=== PATIENT | male | born 1960 | race Caucasian/White ===

== ENCOUNTER 2023-11-26 09:17 | Outpatient (CLI) | payer OTHER, SELFPAY ==
[2023-11-26 10:38] LABS: Basophils Absolute Auto 0.1 K/mm3 (0.0-0.1); Basophils Percent Auto 0.5 % (0.2-1.2); Eosinophils Absolute Auto 0.3 K/mm3 (0-0.3); Eosinophils Percent Auto 2.7 % (0-4.4); Hematocrit 40.7 % (42.0-52.0); Hemoglobin 13.3 g/dL (14.0-18.0); Immature Granulocyte Absolute 0.04 K/mm3 (0.00-0.031); Immature Granulocyte Percent A 0.4 % (0-0.5); Lymphocytes Absolute Auto 3.16 K/mm3 (0.9-3.2); Lymphocytes Percent Auto 33.4 % (18.3-44.2); Mean Corpuscular HGB Conc 32.7 g/dl (32-36); Mean Corpuscular Hemoglobin 30.5 pg (26-34); Mean Corpuscular Volume 93.3 fl (80-100); Mean Platelet Volume 10.5 fl (7.4-10.4); Monocytes Absolute Auto 0.6 K/mm3 (0.1-0.6); Monocytes Percent Auto 6.4 % (2.6-8.5); Neutrophils Absolute Auto 5.4 K/mm3 (1.3-6.7); Neutrophils Percent Auto 56.6 % (45.5-73.1); Platelet Count Result 209 k/mm3 (150-375); Red Blood Count 4.36 M/mm3 (4.6-6.20); Red Cell Distribution Width 12.7 % (11.5-14.5); White Blood Count 9.5 K/mm3 (4.5-10.0)
[2023-11-26 10:43] LABS: Microalbumin Urine Random 35.7 mg/L (0-16.7)
[2023-11-26 10:45] LABS: Alanine Aminotransferase 28 U/L (6-50); Albumin Level 4.4 g/dL (3.5-5.1); Alkaline Phosphatase 39 U/L (38-126); Anion Gap 4 mmol/L (4-12); Aspartate Amino Transferase 35 U/L (17-59); Bilirubin,Total 0.8 mg/dL (0.2-1.3); Blood Urea Nitrogen 13 mg/dL (9-20); Calcium 9.5 mg/dL (8.4-10.2); Carbon Dioxide 31 mmol/L (22-30); Chloride 105 mmol/L (98-107); Cholesterol 174 mg/dL (0-200); Estimated Glomerular Filt Rate > 60; Glucose 101 mg/dL (65-110); HDL Direct 24 mg/dL; Potassium 3.7 mmol/L (3.4-5.0); Sodium 140 mmol/L (137-145); Triglycerides 188 mg/dL (<150)
[2023-11-26 10:57] LABS: LDL Cholesterol Direct 134 mg/dL
[2023-11-26 11:07] LABS: Hemoglobin A1C 7.9 % (<5.7)
[2023-11-26 11:23] LABS: Vitamin D 25 Hydroxy 20.7 ng/mL
[2023-11-26 13:10] LABS: Creatinine Urine 193.8 mg/dL; MALB Creatinine Ratio 18.4 mg/g (0-30)
[2023-11-30 20:25] LABS: Apolipoprotein B 119 mg/dL (<90)
== END 2023-11-26 09:18 | disposition home or self-care (01) ==
LOC: ANHLAB 09:18
PROVIDERS: PCP Clinical Nurse Specialist; Visit Provider Clinical Nurse Specialist
DX: E11.9 Type 2 diabetes mellitus without complications (principal); F41.9 Anxiety disorder, unspecified; Z13.220 Encounter for screening for lipoid disorders; Z13.228 Encounter for screening for other metabolic disorders
CPT/HCPCS: 36415; 80053; 80061; 82043; 82172; 82306; 82607; 83036; 84443; 85025

== ENCOUNTER 2023-12-28 16:11 | Outpatient (CLI) | payer OTHER, SELFPAY ==
[2023-12-28 20:12] LABS: Free T4 Free Thyroxine 0.73 ng/mL (0.78-2.19)
[2023-12-28 20:26] LABS: Prostate Specific Antigen 0.2 ng/mL (< OR = 4.0)
== END 2023-12-28 16:12 | disposition home or self-care (01) ==
LOC: ANHGOSHLAB 16:13
PROVIDERS: PCP Internal Medicine; Visit Provider Clinical Nurse Specialist
DX: Z12.5 Encounter for screening for malignant neoplasm of prostate (principal); R79.89 Other specified abnormal findings of blood chemistry; E11.9 Type 2 diabetes mellitus without complications
CPT/HCPCS: 36415; 84153; 84439; 84443; G0103

== ENCOUNTER 2024-01-03 11:07 | Emergency (ER) | payer OTHER, SELFPAY ==
[2024-01-03] VITALS (14 sets, daily range): BP systolic 72–113; BP diastolic 52–83; PULSE 60–77; RESP 14–20; TEMP 36.4; O2SAT 92–98
--- NOTE | ~2024-01-03 | CT_ITS ---
EXAMINATION: CT brain wo con DATE: 01/03/2024 13:54 INDICATION: Dizziness. TECHNIQUE: Computed tomography (CT) of the head was performed without intravenous contrast. The mA wa s adjusted according to patient size. Iterative reconstruction technique was employed. The dose-lengt h product was 908.00 mGy-cm. COMPARISON: None FINDINGS: There is no intracranial hemorrhage, acute infarction, or abnormal intracranial mass lesion . The ventricles are normal in size. The orbits are normal. There is mild mucosal thickening in the p aranasal sinuses. The mastoid air cells are normal. IMPRESSION: 1. Normal brain. Reviewed, dictated and finalized at location A. IMPRESSION: 1. Normal brain.
--- NOTE | 2024-01-03 11:40 | ECG_ITS ---
SEE SCANNED COPY FOR CONFIRMED REPORT MTDD
[2024-01-03 12:19] LABS: Basophils Percent Auto 0.4 % (0.2-1.2); Eosinophils Absolute Auto 0.6 K/mm3 (0-0.3); Eosinophils Percent Auto 6.8 % (0-4.4); Hematocrit 42.5 % (42.0-52.0); Hemoglobin 13.7 g/dL (14.0-18.0); Immature Granulocyte Absolute 0.02 K/mm3 (0.00-0.031); Immature Granulocyte Percent A 0.2 % (0-0.5); Lymphocytes Absolute Auto 1.97 K/mm3 (0.9-3.2); Lymphocytes Percent Auto 23.6 % (18.3-44.2); Mean Corpuscular HGB Conc 32.2 g/dl (32-36); Mean Platelet Volume 10.4 fl (7.4-10.4); Monocytes Absolute Auto 0.5 K/mm3 (0.1-0.6); Monocytes Percent Auto 6.4 % (2.6-8.5); Neutrophils Absolute Auto 5.2 K/mm3 (1.3-6.7); Neutrophils Percent Auto 62.6 % (45.5-73.1); Platelet Count Result 200 k/mm3 (150-375); Red Blood Count 4.57 M/mm3 (4.6-6.20); Red Cell Distribution Width 12.8 % (11.5-14.5); White Blood Count 8.3 K/mm3 (4.5-10.0)
[2024-01-03] MEDS: SODIUM CHLORIDE 0.9% IV 1,000 ML 999 ML IV CONT ×2 (12:23→13:33)
[2024-01-03] MEDS: MECLIZINE HCL 25 MG TABLET PO (12:24)
[2024-01-03 12:32] LABS: Alanine Aminotransferase 29 U/L (6-50); Albumin Level 4.6 g/dL (3.5-5.1); Alkaline Phosphatase 38 U/L (38-126); Anion Gap 10 mmol/L (4-12); Aspartate Amino Transferase 35 U/L (17-59); Bilirubin,Total 0.9 mg/dL (0.2-1.3); Blood Urea Nitrogen 15 mg/dL (9-20); Calcium 10.2 mg/dL (8.4-10.2); Carbon Dioxide 23 mmol/L (22-30); Chloride 108 mmol/L (98-107); Estimated CRCL calculation 66 ml/min; Estimated Glomerular Filt Rate > 60; Glucose 174 mg/dL (65-110); Potassium 4.4 mmol/L (3.4-5.0); Sodium 141 mmol/L (137-145)
--- NOTE | 2024-01-03 12:46 | ED.GENADULT ---
HPI - General Adult General Chief complaint: Dizziness Stated complaint: dizzy Time Seen by Provider: 01/03/24 12:00 History of Present Illness HPI narrative: Patient is a 63-year-old male who presents ER with dizziness. Spinning in nature. Constant for the last week. Worse with turning his head or looking up and down. Also worse with positional changes. It has caused him to fall once 2 days ago. Denies injury from fall. No loss of consciousness. No chest pain or chest pressure. No racing of the heart. Reports he has had similar symptoms for years but this is been the most persistent. No sinus congestion or sore throat or cough. No tinnitus. Related Data Home Medications Medication Instructions Recorded Confirmed albuterol sulfate 90 mcg/actuation 2 puff inhalation Q4H PRN 12/25/19 11/25/23 aerosol inhaler (Ventolin HFA) atorvastatin 20 mg tablet 20 mg PO DAILY 12/25/19 11/25/23 blood sugar diagnostic (True #10 12/25/19 11/25/23 Metrix Glucose Test Strip) blood-glucose meter (True Metrix #1 12/25/19 11/25/23 Air Glucose Meter kit) blood-glucose meter (Trueresult #1 12/25/19 11/25/23 Blood Glucose System kit) fenofibrate 160 mg tablet 160 mg PO DAILY 12/25/19 11/25/23 insulin U-500 syringe-needle 1/2 #100 12/25/19 11/25/23 mL 31 gauge x 15/64 (BD Insulin Syringe U-500) insulin regular human 100 unit/mL 13 unit subcut TID 12/25/19 injection solution (Humulin R Regular U-100 Insulin) insulin syringe-needle U-100 0.5 #10 12/25/19 11/25/23 mL 31 gauge x 5/16 (BD Insulin Syringe Ultra-Fine) lancets 26 gauge (TRUEplus Lancets) #100 12/25/19 11/25/23 pen needle, diabetic 31 gauge x #1,200 12/25/19 11/25/23 5/16 (BD Ultra-Fine Short Pen Needle) propranolol 20 mg tablet 20 mg PO Q12H 12/25/19 11/25/23 sertraline 100 mg tablet 100 mg PO DAILY 12/25/19 11/25/23 aspirin 81 mg tablet,delayed 81 mg PO DAILY 11/25/23 11/25/23 release (Adult Low Dose Aspirin) gabapentin 100 mg capsule 200 mg PO TID 11/25/23 11/25/23 primidone 50 mg tablet 50 mg PO BID 11/25/23 11/25/23 Allergies Allergy/AdvReac Type Severity Reaction Status Date / Time amoxicillin Allergy Unknown throat Verified 11/25/23 13:04 swelling Penicillins Allergy Unknown throat Verified 11/25/23 13:04 swelling Review of Systems Review of Systems: All systems reviewed & are unremarkable except as noted in HPI and below Constitutional: Constitutional: Reports no additional constitutional complaints ENT: Reports dizziness, Denies nasal congestion and Denies sore throat Cardiovascular: Cardiovascular: Reports no additional cardiovascular complaints Respiratory: Respiratory: Reports no additional respiratory complaints Gastrointestinal: Gastrointestinal: Reports no additional gastrointestinal complaints Neurologic: Reports system reviewed and no additional complaints, except as documented [facility] Past Medical History Medical History (Updated 01/03/24 @ 16:04 by Wale Moe MD) Anxiety Benign positional vertigo COPD (chronic obstructive pulmonary disease) Diabetes Memory loss Family History Family History (Updated 11/25/23 @ 13:14 by Tiana Lindsey MA) Father Family history of diabetes mellitus in first degree relative Alcoholism in family member Mother Diabetes mellitus Grandparent Diabetes mellitus Alcoholism in family member Social History Social History (Updated 11/25/23 @ 13:17 by Tiana Lindsey MA) Social History: Caffeine Cola 4 bottles a day Smoking status: Never smoker Second hand tobacco smoke exposure: Yes Alcohol intake: never Substance use: current Substance use type: marijuana Do You Feel Safe in your Home?: Yes Living arrangements: with family Occupation/Education: retired Gender identity (if verbalized by the patient): Male Sexual Orientation (if Verbalized by the Patient): Straight or Heterosexual Exam Na
[2024-01-03] MEDS: diazePAM INJ (*CRX) 10 MG/2 ML SYRINGE 5 MG IV PUSH (13:33)
--- NOTE | 2024-01-03 13:55 | PC.NURSE ---
Pt returned to room 22 at this time
== END 2024-01-03 16:14 | disposition home or self-care (01) ==
PROVIDERS: General Practice; Emergency Provider Emergency Medicine; PCP Internal Medicine
DX: I95.1 Orthostatic hypotension (principal); H81.10 Benign paroxysmal vertigo, unspecified ear; J44.9 Chronic obstructive pulmonary disease, unspecified; E11.9 Type 2 diabetes mellitus without complications; F41.9 Anxiety disorder, unspecified; Z79.899 Other long term (current) drug therapy; Z79.82 Long term (current) use of aspirin; Z79.4 Long term (current) use of insulin; Z79.84 Long term (current) use of oral hypoglycemic drugs
CPT/HCPCS: 36415; 70450; 80053; 85025; 93005; 96361; 96374; 99284; A9270; J3360; J7030

== ENCOUNTER 2024-01-11 14:53 | Outpatient (CLI) | payer OTHER, SELFPAY ==
--- NOTE | ~2024-01-11 | MR_ITS ---
EXAMINATION: MR brain/brain stem wo con DATE: 01/11/2024 15:48 INDICATION: Dizziness and giddiness. TECHNIQUE: Magnetic resonance imaging (MRI) of the brain and brainstem was performed without intraven ous contrast. COMPARISON: Head CT 01/03/2024 FINDINGS: There is no intracranial hemorrhage, acute infarction, or abnormal intracranial mass lesion . The ventricles are normal in size. There are scattered areas of nonspecific increased T2-weighted s ignal intensity in the cerebral white matter, which is within normal limits for the patient's age. Th e ventricles are normal in size. There is mild mucosal thickening in the paranasal sinuses. The orbit s are normal. The mastoid air cells are normal. IMPRESSION: 1. Normal aging brain. Reviewed, dictated and finalized at location A. IMPRESSION: 1. Normal aging brain.
== END 2024-01-11 14:54 | disposition home or self-care (01) ==
LOC: ANHIMG 14:56
PROVIDERS: PCP Internal Medicine; Visit Provider Internal Medicine
DX: R41.3 Other amnesia (principal); R42 Dizziness and giddiness
CPT/HCPCS: 70551

== ENCOUNTER 2024-01-14 15:15 | Outpatient (RCR) | payer OTHER, SELFPAY ==
--- NOTE | 2024-01-14 16:22 | OPREHPOC ---
Outpatient Therapy Plan of Care This is a Multidisciplinary Plan of Care that may contain components documented by all disciplines (PT, OT, and ST.) PT Problem 1 PT Problem #1 Knowledge Deficit PT Goal 1 Goal Hooker with HEP PT Problem 2 PT Problem #2 Impaired Balance PT Goal 1 Goal Patient will demonstrate ability to maintain straight path with ambulation without lateral deviation Target Visit 8 PT Goal 2 Goal Patient will demonstrate ability to maintain balance on uneven surface with head motion and no LOB for 30s Target Visit 8 PT Problem 3 PT Problem #3 Impaired Balance PT Goal 1 Goal Patient will demonstrate ability to maintain stance on uneven surface with eyes closed for 30s and no LOB for improved vestibular stability Target Visit 8 PT Goal 2 Goal Patient will demonstrate no LOB with floor retrieval Target Visit 8
--- NOTE | 2024-01-14 16:22 | PTOPEVAL1 ---
Assessment and note entered by Soy Estrada, PT Evaluation Information Assessment Status Evaluation Diagnosis Dizziness Onset December 2022 Subjective Information Reports that he has had dizziness for a long, long time. Reports that he has had issues since he was about a teenager. More recently it became a lot worse starting about a year ago. He denies any known trauma throughout his life which may have caused this. He is currently lined up to have an MRI to assess for any possible physical issues. The MRI came back normal according to patient report. He cannot do anything that involves spinning around or he loses balance and gets off centered. Reports that he does occasionally get an earache that can go from ear to ear. Reports that he has been lightheaded in the past as well and passed out. That was about a year ago. Reported Pain Level Pain Score 0: Self Report Assessment PT Clinical Summary Patient was negative for BPPV this session. He demonstrated no current issues with supine motion but subjective reports indicate chronic vestibular deficits. He will benefit from skilled therapy to challenge vestibular reaction to improve balance, head motion, and locomotion for improved safety and stability with ADLs. Plan of Care Interventions Gait Training,Neuro Re-education,Therapeutic Activities,Therapeutic Exercise PT Services Indicated Yes Treatment Frequency and 2x/week for 8 visits Duration These treatments will address the objective and functional deficits as defined above. The patient will be advanced safely and appropriately in order for the patient to progress towards his/her prior level of function. Additional exercises will be introduced and as well as a comprehensive home exercise program upon discharge, if needed, ?to ensure carryover of functional gains achieved in the clinic. This treatment plan has been reviewed and agreement upon by the patient.
--- NOTE | 2024-01-20 11:20 | PCPTNOTE ---
Pt. no show no call.
--- NOTE | 2024-01-27 16:47 | PCPTNOTE ---
Patiient no showed to appointment. Call and left voicemail.
--- NOTE | 2024-01-28 15:47 | PCPTNOTE ---
Patient no showed to appointment this date. Patient will be discharged due to no show policy.
--- NOTE | 2024-02-08 07:42 | PTOPDC ---
Assessment and note entered by Soy Estrada, PT Evaluation Information Assessment Status Discharge - Pt Not Presen Diagnosis Dizziness Onset December 2022 Subjective Information Reports that he has had dizziness for a long, long time. Reports that he has had issues since he was about a teenager. More recently it became a lot worse starting about a year ago. He denies any known trauma throughout his life which may have caused this. He is currently lined up to have an MRI to assess for any possible physical issues. The MRI came back normal according to patient report. He cannot do anything that involves spinning around or he loses balance and gets off centered. Reports that he does occasionally get an earache that can go from ear to ear. Reports that he has been lightheaded in the past as well and passed out. That was about a year ago. Assessment PT Clinical Summary Patient has No Showed, No Called clinic for 3 consecutive visits. Will be discharged at this time to [facility]. Please refer to evaluation for discharge status. Plan of Care PT Services Indicated D/C to [facility]
== END 2024-02-08 09:41 | disposition home or self-care (01) ==
LOC: ANHGOSHPT 15:15
PROVIDERS: PCP Internal Medicine; Visit Provider Internal Medicine
DX: R42 Dizziness and giddiness (principal)
CPT/HCPCS: 97112; 97161

== ENCOUNTER 2024-01-25 14:00 | Outpatient (CLI) | payer OTHER, SELFPAY ==
--- NOTE | 2024-01-31 14:54 | WPDHOLTEREM ---
Holter/Event Monitor Holter/Event Monitor Date of procedure: 01/25/24 Holter/Event Procedure: 48 Hr Holter Monitor Indications: Syncope Conclusion: 1. 48 hour holter monitor on 01/25/24. 2. Underlying rhythm is sinus rhythm. HR range 54-102 bpm; average HR 70 bpm. 3. There are 13 premature supraventricular complexes and 1 supraventricular couplet. No supraventricular tachycardia. 4. No premature ventricular complexes. No ventricular tachycardia. 5. No sinoatrial or atrioventricular blocks. No significant pauses greater than 2 seconds. 6. Patient reports symptoms of dizziness which demonstrate sinus rhythm, HR range 61-76 bpm.
== END 2024-01-25 14:01 | disposition home or self-care (01) ==
LOC: ANHCARD 14:00
PROVIDERS: PCP Internal Medicine; Visit Provider Internal Medicine
DX: R55 Syncope and collapse (principal)
CPT/HCPCS: 93225; 93226

== ENCOUNTER 2024-03-14 14:47 | Outpatient (CLI) | payer OTHER, SELFPAY ==
[2024-03-14 16:23] LABS: Anion Gap 8 mmol/L (4-12); Blood Urea Nitrogen 15 mg/dL (9-20); Calcium 9.3 mg/dL (8.4-10.2); Carbon Dioxide 30 mmol/L (22-30); Chloride 103 mmol/L (98-107); Estimated Glomerular Filt Rate > 60; Glucose 76 mg/dL (65-110); Potassium 4.2 mmol/L (3.4-5.0); Sodium 141 mmol/L (137-145)
[2024-03-14 19:13] LABS: Free T4 Free Thyroxine 0.86 ng/mL (0.78-2.19)
== END 2024-03-14 14:48 | disposition home or self-care (01) ==
LOC: ANHGOSHLAB 14:49
PROVIDERS: PCP Clinical Nurse Specialist; Visit Provider Internal Medicine
DX: E11.65 Type 2 diabetes mellitus with hyperglycemia (principal); R79.89 Other specified abnormal findings of blood chemistry; Z79.4 Long term (current) use of insulin
CPT/HCPCS: 36415; 80048; 83036; 84439; 84443

== ENCOUNTER 2024-04-04 14:56 | Emergency (ER) | payer OTHER, SELFPAY ==
--- NOTE | ~2024-04-04 | XR_ITS ---
EXAM: XR knee RT min 4V DATE: 04/04/2024 16:16 HISTORY: fall last week medial knee pain . COMPARISON: None available. FINDINGS: Decreased mineralization. No fracture or dislocation. No lytic or blastic lesion. Mild med ial joint space narrowing. Mild tricompartmental osteophytosis. Chondrocalcinosis. Small volume joint fluid. No erosion or periosteal change. Soft tissues within normal limits. IMPRESSION: Osteopenia. Mild tricompartmental arthritis with chondrocalcinosis. Small right knee join t effusion. Reviewed, dictated and finalized at location K. IMPRESSION: Osteopenia. Mild tricompartmental arthritis with chondrocalcinosis. Small right knee joint effusion.
[2024-04-04 15:04] VITALS: BP 114/66; PULSE 70; RESP 16; TEMP 36.4; O2SAT 98
--- NOTE | 2024-04-04 15:42 | ED.BACK ---
HPI - Back Pain/Injury General Chief Complaint: Back Pain/Injury Stated Complaint: Knee/Hip/Lower Back Pain Time Seen by Provider: 04/04/24 15:42 Source: patient, RN notes reviewed and old records reviewed Mode of arrival: ambulatory Limitations: no limitations History of Present Illness HPI Narrative: 64-year-old [facility] to [facility] for complaint of right knee, right hip and lower right back pain. Patient states that he had surgery on his right knee approximately 20 years ago. Patient states that over the past 6 months he has been experiencing increasing pain and weakness with right knee. Patient states that knee has been giving out on him occasionally, causing him to fall; most recent 1 week ago. Patient denies hitting head during falls. Patient reports that right hip and back pain have been ongoing for approximately 6 months as well. Patient states that he has seen his primary care provider recently but not for these issues. Patient states he called his primary care provider today requesting an orthopedic referral. Patient states he was advised by his primary care to be seen in [facility] for [facility]opedic referral. Patient denies any known injury to right knee, right hip or back. Patient has attempted to treat at home with a right knee brace. Pvyw-oss-[id number] medications, arthritis cream and massage. Patient sitting in exam room comfortably. Patient in no acute distress. Related Data Home Medications Medication Instructions Recorded Confirmed albuterol sulfate 90 mcg/actuation 2 puff inhalation Q4H PRN 12/25/19 02/07/24 aerosol inhaler (Ventolin HFA) atorvastatin 20 mg tablet 20 mg PO DAILY 12/25/19 02/07/24 blood sugar diagnostic (True #10 ea 12/25/19 02/07/24 Metrix Glucose Test Strip) blood-glucose meter (True Metrix #1 ea 12/25/19 02/07/24 Air Glucose Meter kit) blood-glucose meter (Trueresult #1 ea 12/25/19 02/07/24 Blood Glucose System kit) insulin U-500 syringe-needle 1/2 #100 ea 12/25/19 02/07/24 mL 31 gauge x 15/64 (BD Insulin Syringe U-500) insulin syringe-needle U-100 0.5 #10 ea 12/25/19 02/07/24 mL 31 gauge x 5/16 (BD Insulin Syringe Ultra-Fine) lancets 26 gauge (TRUEplus Lancets) #100 ea 12/25/19 02/07/24 pen needle, diabetic 31 gauge x #1,200 ea 12/25/19 02/07/2401/05 (BD Ultra-Fine Short Pen Needle) propranolol 20 mg tablet 20 mg PO Q12H 12/25/19 02/07/24 sertraline 100 mg tablet 100 mg PO DAILY 12/25/19 02/07/24 aspirin 81 mg tablet,delayed 81 mg PO DAILY 11/25/23 02/07/24 release (Adult Low Dose Aspirin) gabapentin 100 mg capsule 200 mg PO TID 11/25/23 02/07/24 primidone 50 mg tablet 50 mg PO BID 11/25/23 02/07/24 insulin regular human 100 unit/mL 20 unit subcut BID 01/04/24 02/07/24 injection solution (Humulin R Regular U-100 Insulin) Allergies Allergy/AdvReac Type Severity Reaction Status Date / Time amoxicillin Allergy Unknown throat Verified 01/04/24 13:45 swelling Penicillins Allergy Unknown throat Verified 01/04/24 13:45 swelling Review of Systems Review of Systems: All systems reviewed & are unremarkable except as noted in HPI and below Constitutional: Constitutional: Reports no additional constitutional complaints Eyes: Eyes: Reports no additional eye complaints ENT: Reports system reviewed and no additional complaints, except as documented Cardiovascular: Cardiovascular: Reports no additional cardiovascular complaints, Denies chest pain and Denies dyspnea Respiratory: Respiratory: Reports no additional respiratory complaints, Denies cough and Denies dyspnea Musculoskeletal: Musculoskeletal: Reports as per HPI, Reports back pain, Denies deformity, Reports arthralgias, Denies numbness, Denies radiating pain into limb and Denies tingling Comments: patient complaint of chronic right knee pain, right hip pain, right lower back pain Neurologic: Reports system reviewed and no additional complaints, except as documented Psychiatri
== END 2024-04-04 16:44 | disposition home or self-care (01) ==
PROVIDERS: Emergency Provider Nurse Practitioner Family; PCP Internal Medicine
DX: M25.561 Pain in right knee (principal); M25.551 Pain in right hip; M54.50 Low back pain, unspecified; J44.9 Chronic obstructive pulmonary disease, unspecified; E11.9 Type 2 diabetes mellitus without complications; F41.9 Anxiety disorder, unspecified; F33.9 Major depressive disorder, recurrent, unspecified; Z79.82 Long term (current) use of aspirin
CPT/HCPCS: 73564; 99213; G0463

== ENCOUNTER 2024-05-12 15:22 | Emergency (ER) | payer OTHER, SELFPAY ==
--- NOTE | ~2024-05-12 | XR_ITS ---
XR foot LT min 3V Ordering provider: Girma Suarez MD History: . recent fx, persistent pain . Comparison: None. FINDINGS: BONES: Fracture of the distal metaphysis of the abdomen. Metatarsals bones. No other definite fractur es seen. JOINT SPACES: Normal. No tarsal coalition. SOFT TISSUES: Soft tissue swelling over the dorsum of the foot. Calcaneal spur. IMPRESSION: Fracture distal metaphysis of the third and fourth metatarsal bones. Reviewed, dictated and finalized at location A.
[2024-05-12 15:40] VITALS: BP 105/72; PULSE 71; RESP 16; TEMP 36.2; O2SAT 98
--- NOTE | 2024-05-12 18:26 | ED.LOWEXIN ---
HPI - Extremity Injury (Lower) General Chief Complaint: Extremity Injury, Lower Stated Complaint: foot pain Time Seen by Provider: 05/12/24 17:33 History of Present Illness HPI Narrative: 64-year-old male presented for continued pain in his left foot. Patient states he had a ground level mechanical fall last week and has a confirm fracture his left foot. He was given a postoperative shoe and told to follow up outpatient. He has an appointment with Orthopedics on of this upcoming week. He was not sent home with any pain medications according to himself and stated that he has been having significant pain and swelling in his foot. Endorses full range of motion and no neuropathy. Pain and swelling localized to the dorsum of the left foot. No new injuries or traumas. He has been wearing his postop shoe appropriately. No other concerns and no other symptoms at this time. Related Data Home Medications Medication Instructions Recorded Confirmed albuterol sulfate 90 mcg/actuation 2 puff inhalation Q4H PRN 12/25/19 02/07/24 aerosol inhaler (Ventolin HFA) atorvastatin 20 mg tablet 20 mg PO DAILY 12/25/19 02/07/24 blood sugar diagnostic (True #10 12/25/19 02/07/24 Metrix Glucose Test Strip) blood-glucose meter (True Metrix #1 12/25/19 02/07/24 Air Glucose Meter kit) blood-glucose meter (Trueresult #1 12/25/19 02/07/24 Blood Glucose System kit) insulin U-500 syringe-needle 1/2 #100 12/25/19 02/07/24 mL 31 gauge x 15/64 (BD Insulin Syringe U-500) insulin syringe-needle U-100 0.5 #10 12/25/19 02/07/24 mL 31 gauge x 5/16 (BD Insulin Syringe Ultra-Fine) lancets 26 gauge (TRUEplus Lancets) #100 12/25/19 02/07/24 pen needle, diabetic 31 gauge x #1,200 12/25/19 02/07/24 5/16 (BD Ultra-Fine Short Pen Needle) propranolol 20 mg tablet 20 mg PO Q12H 12/25/19 02/07/24 sertraline 100 mg tablet 100 mg PO DAILY 12/25/19 02/07/24 aspirin 81 mg tablet,delayed 81 mg PO DAILY 11/25/23 02/07/24 release (Adult Low Dose Aspirin) primidone 50 mg tablet 50 mg PO BID 11/25/23 02/07/24 insulin regular human 100 unit/mL 20 unit subcut BID 01/04/24 02/07/24 injection solution (Humulin R Regular U-100 Insulin) Allergies Allergy/AdvReac Type Severity Reaction Status Date / Time amoxicillin Allergy Unknown throat Verified 05/12/24 15:24 swelling Penicillins Allergy Unknown throat Verified 05/12/24 15:24 swelling Review of Systems Review of Systems: All systems reviewed & are unremarkable except as noted in HPI and below PMFSH Past Medical History Medical History Anxiety Benign positional vertigo COPD (chronic obstructive pulmonary disease) Diabetes Major depressive disorder, recurrent episode Memory loss Type 2 diabetes mellitus with hyperglycemia, with long-term current use of insulin Family History Family History Father Family history of diabetes mellitus in first degree relative Alcoholism in family member Mother Diabetes mellitus Grandparent Diabetes mellitus Alcoholism in family member Social History Social History Social History: Caffeine Cola 4 bottles a day Smoking status: Never smoker Second hand tobacco smoke exposure: Yes Alcohol intake: never Substance use: current Substance use type: marijuana Do You Feel Safe in your Home?: Yes Lack of Transportation: No Lack of Food: Never True Current Housing: I Have Housing Concerned About Future Housing: No Difficulty Paying Gas/Electric Bills: YES Difficulty Paying for Meds: No Currently Unemployed: No Education: High School Diploma/GED Difficulty w/ Childcare or Family Care: No Living arrangements: with family Occupation/Education: retired Gender identity (if verbalized by the patient): Male
== END 2024-05-12 19:17 | disposition home or self-care (01) ==
LOC: ANHED 18:45
PROVIDERS: Emergency Provider Student in an Organized Health Care Education/Training Program; PCP Internal Medicine
DX: S92.332A Displaced fracture of third metatarsal bone, left foot, initial encounter for closed fracture (principal); S92.342A Displaced fracture of fourth metatarsal bone, left foot, initial encounter for closed fracture; W18.30XA Fall on same level, unspecified, initial encounter; J44.9 Chronic obstructive pulmonary disease, unspecified; E11.9 Type 2 diabetes mellitus without complications; Z79.4 Long term (current) use of insulin; F41.8 Other specified anxiety disorders
CPT/HCPCS: 73630; 99283

== ENCOUNTER 2024-06-02 11:04 | Emergency (ER) | payer OTHER, SELFPAY ==
[2024-06-02] VITALS (7 sets, daily range): BP systolic 110–132; BP diastolic 64–74; PULSE 97–106; RESP 23–37; TEMP 37.3; O2SAT 97–99
--- NOTE | ~2024-06-02 | CT_ITS ---
History: Altered mental status PROCEDURE: CT head without contrast. COMPARISON: 01/03/2024 TECHNIQUE: Axial imaging of the head performed from the skull base to the vertex without IV contrast. Sagittal a nd coronal reformations obtained. FINDINGS: The ventricles are normal in size, shape and position. There is no mass, mass effect or midline shift. There is no abnormal extra-axial fluid collection or intracranial hemorrhage. Visualized paranasal sinuses are clear. The mastoid air cells are well aerated. There are no skull fractures. Impression: No acute intracranial hemorrhage or suspicious mass effect. Reviewed, dictated and finalized at location A. Impression: No acute intracranial hemorrhage or suspicious mass effect.
--- NOTE | ~2024-06-02 | XR_ITS ---
EXAMINATION: XR chest 1V portable DATE: 06/02/2024 14:48 INDICATION: Altered mental status. Weakness. TECHNIQUE: A single frontal view of the chest was obtained. COMPARISON: Chest 2 view 10/22/2017 FINDINGS: There is no pneumonia, pleural effusion, or pneumothorax. The heart size is normal. Calcifi ed left hilar and mediastinal lymph nodes are consistent with old granulomatous disease. IMPRESSION: 1. No acute cardiopulmonary disease. Reviewed, dictated and finalized at location A.
--- NOTE | 2024-06-02 11:18 | ECG_ITS ---
Test Date: 2024-06-02 11:45:41 Measurements Intervals [place] Rate: 100 P: 54 AL: 165 QRS: -15 QRSD: 86 T: 55 QT: 342 QTc: 441 Interpretive Statements SINUS TACHYCARDIA LEFT AXIS DEVIATION BORDERLINE ECG No previous ECG available for comparison Electronically Signed On 06-02-2024 12:38:35 CDT by Noel Mckeon M.D.
[2024-06-02 11:46] LABS: Basophils Percent Auto 0.2 % (0.2-1.2); Eosinophils Percent Auto 0.1 % (0-4.4); Hematocrit 45.7 % (42.0-52.0); Hemoglobin 15.3 g/dL (14.0-18.0); Immature Granulocyte Absolute 0.06 K/mm3 (0.00-0.031); Immature Granulocyte Percent A 0.4 % (0-0.5); Lymphocytes Absolute Auto 0.78 K/mm3 (0.9-3.2); Lymphocytes Percent Auto 4.6 % (18.3-44.2); Mean Corpuscular HGB Conc 33.5 g/dl (32-36); Mean Corpuscular Hemoglobin 31.2 pg (26-34); Mean Corpuscular Volume 93.1 fl (80-100); Mean Platelet Volume 10.1 fl (7.4-10.4); Monocytes Absolute Auto 0.9 K/mm3 (0.1-0.6); Monocytes Percent Auto 5.2 % (2.6-8.5); Neutrophils Absolute Auto 15.4 K/mm3 (1.3-6.7); Neutrophils Percent Auto 89.5 % (45.5-73.1); Platelet Count Result 247 k/mm3 (150-375); Red Blood Count 4.91 M/mm3 (4.6-6.20); Red Cell Distribution Width 13.2 % (11.5-14.5); White Blood Count 17.1 K/mm3 (4.5-10.0)
[2024-06-02 11:54] LABS: Glucose Point of Care 88 mg/dl (65-105)
[2024-06-02 11:57] LABS: Ethanol < 10 mg/dL (<10)
[2024-06-02 11:59] LABS: Alanine Aminotransferase 30 U/L (6-50); Albumin Level 4.7 g/dL (3.5-5.1); Alkaline Phosphatase 45 U/L (38-126); Anion Gap 13 mmol/L (4-12); Aspartate Amino Transferase 52 U/L (17-59); Bilirubin,Total 1.1 mg/dL (0.2-1.3); Blood Urea Nitrogen 21 mg/dL (9-20); Calcium 9.5 mg/dL (8.4-10.2); Carbon Dioxide 25 mmol/L (22-30); Chloride 102 mmol/L (98-107); Estimated CRCL calculation 60 ml/min; Estimated Glomerular Filt Rate > 60; Glucose 96 mg/dL (65-110); Potassium 4.4 mmol/L (3.4-5.0); Sodium 140 mmol/L (137-145)
--- NOTE | 2024-06-02 12:28 | ED.AMS ---
HPI - Altered Mental Status General Chief Complaint: Altered Mental Status Stated Complaint: weakness Time Seen by Provider: 06/02/24 11:14 History of Present Illness HPI narrative: Patient has history of Parkinson's and over the last few weeks to months, ex- who helps take care of him has found that he has had episodes of confusion and some hallucinations, that last for about a few min to an hour. Seems to be happening more frequently. Patient denies any new symptoms or complaints, he does state he just started taking primidone prescribed by his doctor to help with his tremors. No fevers or chills. Related Data Home Medications Medication Instructions Recorded Confirmed blood sugar diagnostic (True #10 ea 12/25/19 06/01/24 Metrix Glucose Test Strip) blood-glucose meter (True Metrix #1 ea 12/25/19 06/01/24 Air Glucose Meter kit) blood-glucose meter (Trueresult #1 ea 12/25/19 06/01/24 Blood Glucose System kit) insulin U-500 syringe-needle 1/2 #100 12/25/19 06/01/24 mL 31 gauge x 15/64 (BD Insulin Syringe U-500) insulin syringe-needle U-100 0.5 #10 ea 12/25/19 06/01/24 mL 31 gauge x 5/16 (BD Insulin Syringe Ultra-Fine) lancets 26 gauge (TRUEplus Lancets) #100 12/25/19 06/01/24 pen needle, diabetic 31 gauge x #1,200 12/25/19 06/01/24 5/16 (BD Ultra-Fine Short Pen Needle) propranolol 20 mg tablet 20 mg PO Q12H 12/25/19 06/02/24 sertraline 100 mg tablet 100 mg PO DAILY 12/25/19 06/02/24 primidone 50 mg tablet 100 mg PO BID 06/01/24 06/02/24 Allergies Allergy/AdvReac Type Severity Reaction Status Date / Time amoxicillin Allergy Unknown throat Verified 06/02/24 11:13 swelling Penicillins Allergy Unknown throat Verified 06/02/24 11:13 swelling Review of Systems Review of Systems: All systems reviewed & are unremarkable except as noted in HPI and below PMFSH Past Medical History Medical History Anxiety Benign positional vertigo COPD (chronic obstructive pulmonary disease) Diabetes Left carpal tunnel syndrome Major depressive disorder, recurrent episode Memory loss Type 2 diabetes mellitus with hyperglycemia, with long-term current use of insulin Surgical History Surgical History History of hernia repair History of right knee surgery History of surgery on right wrist Family History Family History Father Family history of diabetes mellitus in first degree relative Alcoholism in family member Mother Diabetes mellitus Grandparent Diabetes mellitus Alcoholism in family member Social History Social History Social History: Caffeine Cola 4 bottles a day Smoking status: Never smoker Second hand tobacco smoke exposure: Yes Alcohol intake: never Substance use: current Substance use type: marijuana Do You Feel Safe in your Home?: Yes Lack of Transportation: No Lack of Food: Never True Current Housing: I Have Housing Concerned About Future Housing: No Difficulty Paying Gas/Electric Bills: YES Difficulty Paying for Meds: No Currently Unemployed: No Education: High School Diploma/GED Difficulty w/ Childcare or Family Care: No Living arrangements: with family Occupation/Education: retired Gender identity (if verbalized by the patient): Male Sexual Orientation (if Verbalized by the Patient): Straight or Heterosexual Exam Narrative: EXAMINATION OF ORGAN SYSTEMS/BODY AREAS: Constitutional: Vital signs per nursing GENERAL:[No acute distress, non-toxic appearing.] HEAD: Normal with no signs of head trauma. EYES: EOMI, conjunctiva normal ENT: Hearing grossly intact LUNGS: Nonlabored breathing. HEART: [Regular rate and rhythm] ABD: [Soft], [nontender to palpation] EXT: Normal range of motion SKIN:
[2024-06-02 13:43] LABS: Add Urine Microscopic? YES; Appearance Urine Clear (Clear); Bacteria Urine None Seen /hpf; Bilirubin Urine Negative (Negative); Blood Urine 2+ (Negative); Color Urine Yellow (Yellow); Glucose Urine UA Negative (Negative); Ketones Urine Trace mg/dL (Negative); Leukocyte Esterase Ur 1+ LEU/UL (Negative); Nitrate Urine Negative (Negative); Protein Urine Trace mg/dL (Negative); RBC Urine 0-2 /hpf (0-2); Specific Grav Ur 1.023 (1.001-1.035); Squamous Epithelial Cell Urine Occasional /hpf (Few)
[2024-06-02] MEDS: NITROFURANTOIN MONOHYD MACROCR 100 MG CAP PO (15:22)
== END 2024-06-02 15:26 | disposition home or self-care (01) ==
PROVIDERS: Emergency Provider Emergency Medicine; PCP Internal Medicine
DX: R41.82 Altered mental status, unspecified (principal); N39.0 Urinary tract infection, site not specified; E11.9 Type 2 diabetes mellitus without complications; F41.8 Other specified anxiety disorders
CPT/HCPCS: 36415; 70450; 71045; 80053; 81001; 82077; 82948; 84443; 85025; 87086; 93005; 99284; A9270

== ENCOUNTER 2024-06-04 12:29 | Observation (INO) | payer OTHER, SELFPAY ==
[2024-06-04] VITALS (10 sets, daily range): BP systolic 102–132; BP diastolic 58–74; PULSE 89–114; RESP 16–20; TEMP 36.4–37.4; O2SAT 91–97; BMI 27.4
--- NOTE | ~2024-06-04 | MR_ITS ---
Procedure: MR lumbar spine wo/w con Ordering provider: Nohemi Escamilla DO History:64 years Male with . low back pain, CT suggests L2 fracture . Comparison: None. Technique: MRI lumbar spine with and without contrast. FINDINGS: CONUS MEDULLARIS: Normal in position and appearance with no abnormal enhancement. The conus ends at t he level of T12-L1. LUMBAR VERTEBRAL BODIES: Loss of height is seen in L2 with no edema seen on the fat suppression image s suggestive of chronic compression. Bright signal on the fat suppression images seen in L1 anteriorl y most likely degenerative. Otherwise, Normal height and alignment. Normal marrow signal. No abnormal marrow enhancement. DISK SPACES: Narrowing of the disc L4-L5. T12-L1: No stenosis. L1-L2: No stenosis. Diffuse disc bulge. Bilateral facet joint disease. Slight narrowing of the mildred mel with no definite root compression L2-L3: No stenosis. Mild diffuse disc bulge. L3-L4: Mild spinal canal stenosis secondary to broad based disc bulge, facet arthropathy, and ligamen morgan flavum hypertrophy. . L4-L5: Severe spinal canal stenosis secondary to broad based disc bulge, facet arthropathy, and liga mentum flavum hypertrophy. Bilateral facet joint disease. Bilateral narrowing of the foramina with ne rve root compression on the right L5-S1: Mild to moderate spinal canal stenosis secondary to broad based disc bulge, facet arthropathy , and ligamentum flavum hypertrophy. PARASPINOUS SOFT TISSUES: Normal. No abnormal paraspinous enhancement. IMPRESSION: 1. No acute osseous abnormality. 2. Chronic compression fracture of L2. 3. Multilevel spinal canal stenosis, intervertebral foraminal narrowing and with compression. 4. No abnormal enhancement. Reviewed, dictated and finalized at location A. IMPRESSION: 1. No acute osseous abnormality. 2. Chronic compression fracture of L2. 3. Multilevel spinal canal stenosis, intervertebral foraminal narrowing and wi th compression. 4. No abnormal enhancement.
--- NOTE | ~2024-06-04 | CT_ITS ---
CT abdomen pelvis w con Ordering provider: Phuong Yoder APRN History: 64 years Male with . leukocytosis, nausea . Comparison: May 22, 2017 Technique: CT abdomen and pelvis with IV and without oral contrast. Automated exposure control and it erative reconstruction technique were employed. The dose-length product was 545.92 mGy-cm. 100 mL Omn ipaque 350 was given IV. Findings: VISUALIZED LOWER CHEST: Tiny nodule in the medial aspect of the right lung base measuring 3.9 mm. 6-1 2 months follow-up is advised. Dependent atelectatic changes are seen bilaterally. UPPER ABDOMINAL ORGANS: Liver: Normal. Very tiny cyst seen in the right lobe of the liver Gallbladder: Normal. Spleen: Normal. Benign calcifications. Stomach/duodenum: Slightly thickened wall in the pyloric area. Pancreas: Normal. Adrenals: Normal. Kidneys: Stone in the right kidney lower pole measuring 6 mm. PELVIC ORGANS: The bladder is underfilled with thickened wall.. BOWEL AND MESENTERY: Colon: Mild sigmoid diverticulosis without diverticulitis. Slightly thickened wall of the wall in the sigmoid colon is seen. Follow-up advised. Normal appendix. Small Bowel: Normal. No obstruction. Peritoneum/mesentery: No free air or free fluid. No mesenteric lymphadenopathy. RETROPERITONEUM: Mild atheromatous disease of the abdominal aorta. No retroperitoneal lymphadenopat hy. MUSCULOSKELETAL: Superficial soft tissues: Fat stranding seen in the anterior abdominal wall in the area of the pelvis may be traumatic or inflammatory or post injection. The superficial soft tissues are normal. Bones: Age appropriate degenerative changes of the spine. compression fracture of L2 is seen which ma y be acute or chronic. IMPRESSION: 1. Right kidney stone. 2. Tiny cysts in the liver. 3. Slightly thickened wall in the sigmoid colon. Follow-up advised. 4. Fat stranding in the anterior abdominal wall most likely postinjection. Clinical correlation advi sed. 5. Compression fracture of L2 which may be acute or chronic. MRI evaluation advised. Reviewed, dictated and finalized at location A. IMPRESSION: 1. Right kidney stone. 2. Tiny cysts in the liver. 3. Slightly thickened wall in the sigmoid colon. Follow-up advised. 4. Fat stranding in the anterior abdominal wall most likely postinjection. Cli nical correlation advised. 5. Compression fracture of L2 which may be acute or chronic. MRI evaluation ad vised.
--- NOTE | ~2024-06-04 | CT_ITS ---
EXAMINATION: CT brain wo con DATE: 06/05/2024 17:22 INDICATION: Confusion. TECHNIQUE: Computed tomography (CT) of the head was performed without intravenous contrast. The mA wa s adjusted according to patient size. Iterative reconstruction technique was employed. The dose-lengt h product was 605.33 mGy-cm. COMPARISON: Head CT 06/02/2024 FINDINGS: There is no intracranial hemorrhage, acute infarction, or abnormal intracranial mass lesion . The ventricles are normal in size. The orbits are normal. There is mild mucosal thickening in the p aranasal sinuses. The mastoid air cells are normal. IMPRESSION: 1. Normal brain. Reviewed, dictated and finalized at location A. IMPRESSION: 1. Normal brain.
--- NOTE | ~2024-06-04 | XR_ITS ---
EXAMINATION: XR chest 2V DATE: 06/04/2024 13:51 INDICATION: Dizziness. Illness. TECHNIQUE: Frontal and lateral views of the chest were obtained. COMPARISON: Chest single view 06/02/2024 FINDINGS: There is no pneumonia, pleural effusion, or pneumothorax. The heart size is normal. Calcifi ed left hilar lymph nodes are consistent with old granulomatous disease. IMPRESSION: 1. No acute cardiopulmonary disease. Reviewed, dictated and finalized at location A.
[2024-06-04 12:53] LABS: Glucose Point of Care 118 mg/dl (65-105)
[2024-06-04 12:56] LABS: Basophils Percent Auto 0.1 % (0.2-1.2); Hematocrit 44.6 % (42.0-52.0); Immature Granulocyte Absolute 0.08 K/mm3 (0.00-0.031); Immature Granulocyte Percent A 0.4 % (0-0.5); Lymphocytes Absolute Auto 1.37 K/mm3 (0.9-3.2); Lymphocytes Percent Auto 6.7 % (18.3-44.2); Mean Corpuscular HGB Conc 33.6 g/dl (32-36); Mean Corpuscular Volume 92.1 fl (80-100); Mean Platelet Volume 10.1 fl (7.4-10.4); Monocytes Absolute Auto 1.1 K/mm3 (0.1-0.6); Monocytes Percent Auto 5.2 % (2.6-8.5); Neutrophils Percent Auto 87.6 % (45.5-73.1); Platelet Count Result 348 k/mm3 (150-375); Red Blood Count 4.84 M/mm3 (4.6-6.20); Red Cell Distribution Width 13.2 % (11.5-14.5); White Blood Count 20.5 K/mm3 (4.5-10.0)
[2024-06-04 13:24] LABS: Anion Gap 15 mmol/L (4-12); Blood Urea Nitrogen 23 mg/dL (9-20); Calcium 10.2 mg/dL (8.4-10.2); Carbon Dioxide 25 mmol/L (22-30); Chloride 102 mmol/L (98-107); Estimated CRCL calculation 49 ml/min; Estimated Glomerular Filt Rate > 60; Glucose 119 mg/dL (65-110); Potassium 4.2 mmol/L (3.4-5.0); Sodium 142 mmol/L (137-145)
--- NOTE | 2024-06-04 13:26 | ED.GENADULT ---
HPI - General Adult General Chief complaint: Recheck/Abnormal Lab/Rx Stated complaint: low blood sugar Time Seen by Provider: 06/04/24 12:41 History of Present Illness HPI narrative: 64-year-old male presenting to the emergency department for evaluation for altered mental status. Patient states that he felt confused today and was having bilateral lower extremity weakness this morning. Patient's blood sugar was running low per EMS and he was treated with IV dextrose and does feel improved. Patient is diabetic but is unsure why his blood sugars would be running low. In the emergency department patient states he does feel improved, states his legs still feel little weak but he has no focal weakness. Patient denies any recent illness. Related Data Home Medications Medication Instructions Recorded Confirmed blood sugar diagnostic (True #10 12/25/19 06/04/24 Metrix Glucose Test Strip) blood-glucose meter (True Metrix #1 12/25/19 06/04/24 Air Glucose Meter kit) insulin U-500 syringe-needle 1/2 #100 12/25/19 06/04/24 mL 31 gauge x 15/64 (BD Insulin Syringe U-500) insulin syringe-needle U-100 0.5 #10 12/25/19 06/04/24 mL 31 gauge x 5/16 (BD Insulin Syringe Ultra-Fine) lancets 26 gauge (TRUEplus Lancets) #100 12/25/19 06/04/24 pen needle, diabetic 31 gauge x #1,200 12/25/19 06/04/24 5/16 (BD Ultra-Fine Short Pen Needle) propranolol 20 mg tablet 20 mg PO Q12H 12/25/19 06/04/24 sertraline 100 mg tablet 200 mg PO DAILY 12/25/19 06/04/24 primidone 50 mg tablet 100 mg PO Q12H 06/01/24 06/04/24 lisinopril 2.5 mg tablet 2.5 mg PO DAILY 06/04/24 06/04/24 Allergies Allergy/AdvReac Type Severity Reaction Status Date / Time amoxicillin Allergy Unknown throat Verified 06/02/24 11:13 swelling Penicillins Allergy Unknown throat Verified 06/02/24 11:13 swelling Review of Systems Review of Systems: All systems reviewed & are unremarkable except as noted in HPI and below PMFSH Past Medical History Medical History Anxiety Benign positional vertigo COPD (chronic obstructive pulmonary disease) Diabetes Left carpal tunnel syndrome Major depressive disorder, recurrent episode Memory loss Type 2 diabetes mellitus with hyperglycemia, with long-term current use of insulin Surgical History Surgical History History of hernia repair History of right knee surgery History of surgery on right wrist Family History Family History Father Family history of diabetes mellitus in first degree relative Alcoholism in family member Mother Diabetes mellitus Grandparent Diabetes mellitus Alcoholism in family member Social History Social History Social History: Caffeine Cola 4 bottles a day Smoking status: Never smoker Alcohol intake: never Substance use: current Substance use type: marijuana Do You Feel Safe in your Home?: Yes Lack of Transportation: No Lack of Food: Never True Current Housing: I Have Housing Concerned About Future Housing: No Difficulty Paying Gas/Electric Bills: YES Difficulty Paying for Meds: No Currently Unemployed: No Education: High School Diploma/GED Difficulty w/ Childcare or Family Care: No Living arrangements: with family Occupation/Education: retired Gender identity (if verbalized by the patient): Male Sexual Orientation (if Verbalized by the Patient): Straight or Heterosexual Spiritual care concerns: No Exam Narrative: APPEARANCE: Tired and ill-appearing HEAD: normocephalic, atraumatic. EYES: PERRLA/EOMI, conjunctivae clear. NOSE: Normal no drainage EARS:TMS clear with good light reflex. THROAT: Pharynx clear, no exudate. NECK: Supple. No adenopathy, no masses. RESPIRATORY: Airway patent, respi
[2024-06-04 14:27] LABS: Influenza A QL RT-PCR Negative (Negative); Influenza B QL RT-PCR Negative (Negative); RSV RNA, RT-PCR Negative (Negative); SARS-CoV-2 RNA PCR Negative (Negative)
--- NOTE | 2024-06-04 15:18 | PC.NURSE ---
Pt states unable to void at this time.
[2024-06-04 16:02] LABS: Add Urine Microscopic? YES; Appearance Urine Cloudy (Clear); Bacteria Urine None Seen /hpf; Bilirubin Urine 2+ (Negative); Blood Urine 2+ (Negative); Color Urine Dark Yellow (Yellow); Glucose Urine UA Trace mg/dL (Negative); Hyaline Casts Urine Present /lpf; Ketones Urine 1+ mg/dL (Negative); Leukocyte Esterase Ur 1+ LEU/UL (Negative); Nitrate Urine Negative (Negative); Non Pathogenic Casts >20; Protein Urine 1+ mg/dL (Negative); RBC Urine 0-2 /hpf (0-2); Specific Grav Ur 1.025 (1.001-1.035); Squamous Epithelial Cell Urine Few /hpf (Few); WBC Urine 0-5 /hpf (0-3); pH Urine 5.5 (5.0-9.0)
[2024-06-04 16:25] LABS: Glucose Point of Care 92 mg/dl (65-105)
[2024-06-04] MEDS: SODIUM CHLORIDE 0.9% IV 1,000 ML 999 ML IV CONT (17:21)
--- NOTE | 2024-06-04 18:23 | PC.NURSE ---
This RN spoke with the PROGRAM ELIGIBILITY SPECIALIST regarding this patient and agreed for patient to transfer to IMU room 205-01.
--- NOTE | 2024-06-04 18:31 | ADMGEN ---
This patient, Smooth Ace, was admitted to IMU Room 205-01. Patient/family oriented to hospital policies and general routines including ID bracelet, bed and alarms, visiting hours, pain management, procedures, bathroom and other care routines, personal items, smoking policy, room service/diet, and visiting hours. Information on how to activate the Rapid Response Team has been discussed. Patient/Family are encouraged to report perceived risks to care and to ask questions if they do not understand what they are told or what they should do.
[2024-06-04] MEDS: GLUCOSE ORAL GEL 15 GM OF GLUCSE IN 37.5 GM TUBE PO (18:46)
[2024-06-04] MEDS: DEXTROSE 50% 25 GM/50 ML SYRINGE IV PUSH (18:58)
[2024-06-04 19:05] LABS: Glucose Point of Care 47 mg/dl (65-105)
[2024-06-04 19:05] LABS: Glucose Point of Care 54 mg/dl (65-105)
[2024-06-04 19:13] LABS: Glucose Point of Care 237 mg/dl (65-105)
[2024-06-04 20:50] LABS: Glucose Point of Care 221 mg/dl (65-105)
--- NOTE | 2024-06-04 22:43 | PM.IMHP ---
H&P: HPI History of Present Illness Date/Time: 06/04/24 22:43 Chief Complaint: Hypoglycemia Narrative: This is a 64-year-old male with significant past medical history of anxiety, vertigo, COPD, depression, type 2 diabetes mellitus who presented to the hospital with confusion and bilateral lower extremity weakness that started this morning. Patient's blood sugar was 35 on arrival and was given IV dextrose EN route to the hospital per EMS. According to the patient he states he has not been feeling well for the last 4-5 days and has been nauseated with decreased appetite. He denies any fever, chills, vomiting, diarrhea, constipation, abdominal pain, chest pain, shortness a breath. He denies taking any of his insulins today. Workup in the hospital included a chest x-ray which was negative. Labs included a white blood cell count of 20.5, anion gap 15, BUN 23. A UA was obtained which showed cloudy appearance, 1+ urine protein, trace urine glucose, 1+ urine ketone, 2+ urine blood, 2+ urine bilirubin, 1+ leukocyte. Respiratory panel was negative for influenza A and B, RSV, COVID. Blood and urine cultures were obtained and are pending. Patient was given glucagon, 12.5 g IV push dextrose, 15 g glucose tablet, and dextrose infusion while in the ED. Blood sugars improved prior to admission. Of note he was recently seen in our emergency room on 06/02/2024 with similar complaints and was treated with antibiotics for UTI however in the urine culture came back negative. It was noted in the EMR that he started taking primidone for his worsening tremors and weakness. He was recently seen at his primary care office and was noted to have leg weakness at that time and was supposed to see Neurologist and have a nerve conduction study and MIKE however he has not obtain these test. Review of Systems Review of Systems: All systems reviewed & are unremarkable except as noted in HPI and below Constitutional: Constitutional: Reports as per HPI and Reports no additional constitutional complaints Eyes: Eyes: Reports as per HPI and Reports no additional eye complaints ENT: Reports system reviewed and no additional complaints, except as documented and Reports as per HPI Cardiovascular: Cardiovascular: Reports as per HPI and Reports no additional cardiovascular complaints Respiratory: Respiratory: Reports as per HPI and Reports no additional respiratory complaints Gastrointestinal: Gastrointestinal: Reports as per HPI and Reports no additional gastrointestinal complaints Genitourinary: Genitourinary: Reports no additional male genitourinary complaints and Reports as per HPI Musculoskeletal: Musculoskeletal: Reports no additional musculoskeletal complaints and Reports as per HPI Integumentary/Breasts: Skin/Breast: Reports system reviewed and no additional complaints, except as docu and Reports as per HPI Neurologic: Reports system reviewed and no additional complaints, except as documented and Reports as per HPI Psychiatric: Psychiatric: Reports no additional psychiatric complaints and Reports as per HPI [facility] Past Medical History Medical History Anxiety Benign positional vertigo COPD (chronic obstructive pulmonary disease) Diabetes Left carpal tunnel syndrome Major depressive disorder, recurrent episode Memory loss Type 2 diabetes mellitus with hyperglycemia, with long-term current use of insulin Surgical History Surgical History History of hernia repair History of right knee surgery History of surgery on right wrist Family History Family History Father Family history of diabetes mellitus in first degree relative Alcoholism in family member Mother Diabetes mellitus Grandparent Diabetes mellitus Alcoholism in family member Social History Social History (Reviewed 06/04/24 @ 23:
[2024-06-04] MEDS: PRIMIDONE 50 MG TABLET 100 MG PO (23:30)
[2024-06-05] VITALS (14 sets, daily range): BP systolic 106–110; BP diastolic 60–70; PULSE 73–88; RESP 16–20; TEMP 36.7–36.9; O2SAT 91–97; BMI 26.9
[2024-06-05] MEDS: PROPRANOLOL HCL 20 MG TABLET PO ×3 (00:22→20:46)
[2024-06-05 00:37] LABS: Glucose Point of Care 90 mg/dl (65-105)
[2024-06-05 02:18] LABS: Glucose Point of Care 87 mg/dl (65-105)
[2024-06-05 05:02] LABS: Basophils Percent Auto 0.3 % (0.2-1.2); Eosinophils Absolute Auto 0.1 K/mm3 (0-0.3); Eosinophils Percent Auto 0.8 % (0-4.4); Hematocrit 37.8 % (42.0-52.0); Hemoglobin 12.7 g/dL (14.0-18.0); Immature Granulocyte Absolute 0.06 K/mm3 (0.00-0.031); Immature Granulocyte Percent A 0.5 % (0-0.5); Lymphocytes Absolute Auto 2.86 K/mm3 (0.9-3.2); Lymphocytes Percent Auto 23.2 % (18.3-44.2); Mean Corpuscular HGB Conc 33.6 g/dl (32-36); Mean Corpuscular Hemoglobin 30.4 pg (26-34); Mean Corpuscular Volume 90.4 fl (80-100); Mean Platelet Volume 9.9 fl (7.4-10.4); Monocytes Absolute Auto 0.9 K/mm3 (0.1-0.6); Monocytes Percent Auto 6.9 % (2.6-8.5); Neutrophils Absolute Auto 8.4 K/mm3 (1.3-6.7); Neutrophils Percent Auto 68.3 % (45.5-73.1); Platelet Count Result 265 k/mm3 (150-375); Red Blood Count 4.18 M/mm3 (4.6-6.20); Red Cell Distribution Width 13.2 % (11.5-14.5); White Blood Count 12.4 K/mm3 (4.5-10.0)
[2024-06-05 05:12] LABS: Alanine Aminotransferase 54 U/L (6-50); Albumin Level 4.2 g/dL (3.5-5.1); Alkaline Phosphatase 45 U/L (38-126); Anion Gap 10 mmol/L (4-12); Aspartate Amino Transferase 144 U/L (17-59); Bilirubin,Total 1.6 mg/dL (0.2-1.3); Blood Urea Nitrogen 22 mg/dL (9-20); Calcium 9.4 mg/dL (8.4-10.2); Carbon Dioxide 26 mmol/L (22-30); Chloride 101 mmol/L (98-107); Estimated CRCL calculation 58 ml/min; Estimated Glomerular Filt Rate > 60; Glucose 89 mg/dL (65-110); Potassium 3.5 mmol/L (3.4-5.0); Sodium 137 mmol/L (137-145)
[2024-06-05 07:53] LABS: Glucose Point of Care 90 mg/dl (65-105)
[2024-06-05] MEDS: SERTRALINE HCL 50 MG TABLET 200 MG PO (08:58)
[2024-06-05] MEDS: ENOXAPARIN 40 MG/0.4 ML SYRINGE SUB-Q (08:59)
[2024-06-05] MEDS: PRIMIDONE 50 MG TABLET 100 MG PO ×2 (08:59→20:44)
[2024-06-05] MEDS: ATORVASTATIN 20 MG TABLET PO (08:59)
[2024-06-05] MEDS: GABAPENTIN 300 MG CAPSULE 600 MG PO ×3 (08:59→20:44)
[2024-06-05] MEDS: lisinopriL 2.5 MG TABLET PO (09:00)
[2024-06-05] MEDS: FENOFIBRATE 160 MG TABLET PO (09:03)
[2024-06-05 10:52] LABS: Glucose Point of Care 184 mg/dl (65-105)
--- NOTE | 2024-06-05 14:57 | P.PNIM_ITS ---
Progress Note: A&P Assessment and Plan (1) Hypoglycemia: Code(s): E16.2 - Hypoglycemia, unspecified Status: Acute Assessment and Plan: Patient initially had a blood sugar of 35 on arrival. He was given dextrose 12.5 mg IV push, glucose tabs, glucagon, and dextrose infusion which improved his blood sugars to the low 100s * Continue Accu-Cheks AC and HS * Encourage p.o. intake Continue monitor Accu-Cheks (2) Leukocytosis: Code(s): D72.829 - Elevated white blood cell count, unspecified Status: Acute Assessment and Plan: * White blood cell count 20.5 * Reports nausea and weakness x5 days * No open wounds or signs of infection * Respiratory panel negative for influenza a and B, COVID, RSV * CT abdomen pelvis reviewed unremarkable: Right kidney stone, slightly thickened wall in sigmoid colon, fat stranding anterior abdominal wall likely due to post-injection compression fracture of L2 * Blood in urine cultures were obtained and are pending * UA showing cloudy appearance, 1+ urine protein, trace urine glucose, 1+ urine ketone, 2+ urine blood, 2+ urine bili Perkins, 1+ leukocyte * Was seen in the ED on 06/02/2024 was similar UA however culture was negative. He was on Macrobid at home. (3) Abnormal urinalysis: Code(s): R82.90 - Unspecified abnormal findings in urine Status: Acute Assessment and Plan: * UA showing cloudy appearance, 1+ urine protein, trace urine glucose, 1+ urine ketone, 2+ urine blood, 2+ urine bili, 1+ leukocyte * Urine and blood cultures obtained and are pending * Was recently treated with Macrobid on 06/02/2024 due to similar UA results however urine culture was negative at that time * Will hold off on any other antibiotics at this time (4) Dyslipidemia: Code(s): E78.5 - Hyperlipidemia, unspecified Status: Acute Assessment and Plan: * Continue atorvastatin (5) Tremor: Code(s): R25.1 - Tremor, unspecified Status: Acute Assessment and Plan: * Continue primidone (6) Type 2 diabetes mellitus with hyperglycemia, with long-term current use of insulin: Code(s): E11.65 - Type 2 diabetes mellitus with hyperglycemia; Z79.4 - [employer] inspector (current) use of insulin Status: Acute Assessment and Plan: * Blood sugars ranging 118-221 * Hgb A1C 7.0 on 03/14/2024 * A1c is 5 06/05/2024 * Accu checks AC/HS * Moderate dose SSI ordered * hypoglycemic protocol in place * Diabetic diet ordered * Will hold home insulins for now On Lantus 100 unit and NovoLog 20 units with meals twice daily along with metformin at home A1c is normalized now and likely will require less with insulin dosing if any. Plan Altered mental status: Likely due to hypoglycemia will get CT head to rule out any underlying problem particularly due to recent fall Subjective Date/time seen: 06/05/24 14:57 Interval history: No overnight events. Hypoglycemia resolved. Patient still slow to respond. Family at bedside. Review of Systems Review of Systems: All systems reviewed & are unremarkable except as noted in HPI and below Exam Narrative: General: In no acute distress, well nourished Head: atraumatic, no encephalopathy Eyes: EOMI, PERRLA, sclera clear ENT: moist mucous membranes, nasal passages clear Neck: supple, no JVD, no adenopathy, trachea midline Cardiac: Normal S1 and S2. RRR No murmur, gallops or friction rubs, peripheral pulses intact. Respiratory: Lungs clear to auscultation, no adventitious lung sounds, currently on
--- NOTE | 2024-06-05 14:57 | PM.IMPN ---
Progress Note: A&P Assessment and Plan (1) Hypoglycemia: Code(s): E16.2 - Hypoglycemia, unspecified Status: Acute Assessment and Plan: Patient initially had a blood sugar of 35 on arrival. He was given dextrose 12.5 mg IV push, glucose tabs, glucagon, and dextrose infusion which improved his blood sugars to the low 100s Continue Accu-Cheks AC and HS Encourage p.o. intake Continue monitor Accu-Cheks (2) Leukocytosis: Code(s): D72.829 - Elevated white blood cell count, unspecified Status: Acute Assessment and Plan: White blood cell count 20.5 Reports nausea and weakness x5 days No open wounds or signs of infection Respiratory panel negative for influenza a and B, COVID, RSV CT abdomen pelvis reviewed unremarkable: Right kidney stone, slightly thickened wall in sigmoid colon, fat stranding anterior abdominal wall likely due to post-injection compression fracture of L2 Blood in urine cultures were obtained and are pending UA showing cloudy appearance, 1+ urine protein, trace urine glucose, 1+ urine ketone, 2+ urine blood, 2+ urine bili Perkins, 1+ leukocyte Was seen in the ED on 06/02/2024 was similar UA however culture was negative. He was on Macrobid at home. (3) Abnormal urinalysis: Code(s): R82.90 - Unspecified abnormal findings in urine Status: Acute Assessment and Plan: UA showing cloudy appearance, 1+ urine protein, trace urine glucose, 1+ urine ketone, 2+ urine blood, 2+ urine bili, 1+ leukocyte Urine and blood cultures obtained and are pending Was recently treated with Macrobid on 06/02/2024 due to similar UA results however urine culture was negative at that time Will hold off on any other antibiotics at this time (4) Dyslipidemia: Code(s): E78.5 - Hyperlipidemia, unspecified Status: Acute Assessment and Plan: Continue atorvastatin (5) Tremor: Code(s): R25.1 - Tremor, unspecified Status: Acute Assessment and Plan: Continue primidone (6) Type 2 diabetes mellitus with hyperglycemia, with long-term current use of insulin: Code(s): E11.65 - Type 2 diabetes mellitus with hyperglycemia; Z79.4 - [facility] (current) use of insulin Status: Acute Assessment and Plan: Blood sugars ranging 118-221 Hgb A1C 7.0 on 03/14/2024 A1c is 5 06/05/2024 Accu checks AC/HS Moderate dose SSI ordered hypoglycemic protocol in place Diabetic diet ordered Will hold home insulins for now On Lantus 100 unit and NovoLog 20 units with meals twice daily along with metformin at home A1c is normalized now and likely will require less with insulin dosing if any. Plan Altered mental status: Likely due to hypoglycemia will get CT head to rule out any underlying problem particularly due to recent fall Subjective Date/time seen: 06/05/24 14:57 Interval history: No overnight events. Hypoglycemia resolved. Patient still slow to respond. Family at bedside. Review of Systems Review of Systems: All systems reviewed & are unremarkable except as noted in HPI and below Exam Narrative: General: In no acute distress, well nourished Head: atraumatic, no encephalopathy Eyes: EOMI, PERRLA, sclera clear ENT: moist mucous membranes, nasal passages clear Neck: supple, no JVD, no adenopathy, trachea midline Cardiac: Normal S1 and S2. RRR No murmur, gallops or friction rubs, peripheral pulses intact. Respiratory: Lungs clear to auscultation, no adventitious lung sounds, currently on room air Gastrointestinal: soft, non-distended, non-tender, normoactive bowel sounds. : voiding without difficulty. Extremities: moves all extremities well, no edema Skin: clean, dry, intact. No wounds or lesions. Neuro: Alert and oriented x4, slow to respond, cranial nerves intact, no neuro deficits. Psych: normal mood, normal affect, interactive Objective Data Vital Signs Vital Signs: Vital Signs - 24 hr 06/04/24 15:17 06/04/24 17
--- NOTE | 2024-06-05 15:29 | PC.NURSE ---
This RN confirmed with MD that the patient still does not require an RN for transport to CT.
[2024-06-05 16:53] LABS: Glucose Point of Care 188 mg/dl (65-105)
[2024-06-05 20:18] LABS: Glucose Point of Care 186 mg/dl (65-105)
[2024-06-06 05:00] VITALS: BP 115/63; PULSE 72; RESP 16; TEMP 36.4; O2SAT 96
[2024-06-06 06:47] LABS: Basophils Percent Auto 0.4 % (0.2-1.2); Eosinophils Absolute Auto 0.1 K/mm3 (0-0.3); Eosinophils Percent Auto 1.3 % (0-4.4); Immature Granulocyte Absolute 0.02 K/mm3 (0.00-0.031); Immature Granulocyte Percent A 0.2 % (0-0.5); Lymphocytes Absolute Auto 2.07 K/mm3 (0.9-3.2); Lymphocytes Percent Auto 21.3 % (18.3-44.2); Mean Corpuscular HGB Conc 32.5 g/dl (32-36); Mean Corpuscular Volume 92.4 fl (80-100); Monocytes Absolute Auto 0.7 K/mm3 (0.1-0.6); Monocytes Percent Auto 7.1 % (2.6-8.5); Neutrophils Absolute Auto 6.8 K/mm3 (1.3-6.7); Neutrophils Percent Auto 69.7 % (45.5-73.1); Platelet Count Result 265 k/mm3 (150-375); Red Blood Count 4.33 M/mm3 (4.6-6.20); Red Cell Distribution Width 12.9 % (11.5-14.5); White Blood Count 9.7 K/mm3 (4.5-10.0)
[2024-06-06 06:54] LABS: Alanine Aminotransferase 65 U/L (6-50); Albumin Level 4.3 g/dL (3.5-5.1); Alkaline Phosphatase 49 U/L (38-126); Anion Gap 11 mmol/L (4-12); Aspartate Amino Transferase 144 U/L (17-59); Bilirubin,Total 1.2 mg/dL (0.2-1.3); Blood Urea Nitrogen 19 mg/dL (9-20); Calcium 9.3 mg/dL (8.4-10.2); Carbon Dioxide 25 mmol/L (22-30); Chloride 99 mmol/L (98-107); Estimated CRCL calculation 58 ml/min; Estimated Glomerular Filt Rate > 60; Glucose 217 mg/dL (65-110); Potassium 3.8 mmol/L (3.4-5.0); Sodium 135 mmol/L (137-145)
[2024-06-06 08:54] VITALS: PULSE 76
[2024-06-06] MEDS: ENOXAPARIN 40 MG/0.4 ML SYRINGE SUB-Q (08:54)
[2024-06-06] MEDS: GABAPENTIN 300 MG CAPSULE 600 MG PO ×3 (08:54→17:31)
[2024-06-06] MEDS: SERTRALINE HCL 50 MG TABLET 200 MG PO (08:54)
[2024-06-06] MEDS: PROPRANOLOL HCL 20 MG TABLET PO ×2 (08:54→20:39)
[2024-06-06] MEDS: ATORVASTATIN 20 MG TABLET PO (08:54)
[2024-06-06] MEDS: lisinopriL 2.5 MG TABLET PO (08:55)
[2024-06-06] MEDS: PRIMIDONE 50 MG TABLET 100 MG PO ×2 (08:55→20:39)
[2024-06-06] MEDS: FENOFIBRATE 160 MG TABLET PO (08:55)
[2024-06-06 11:39] LABS: Glucose Point of Care 178 mg/dl (65-105)
[2024-06-06 12:05] LABS: Glucose Point of Care 226 mg/dl (65-105)
[2024-06-06 13:00] VITALS: BP 113/67; PULSE 65; RESP 20; TEMP 36.3; O2SAT 97
[2024-06-06] MEDS: INSULIN ASPART (*BKC) 100 UNITS/ML SUB-Q ×3 (13:07→20:40)
--- NOTE | 2024-06-06 14:12 | PM.IMPN ---
Progress Note: A&P Assessment and Plan (1) Hypoglycemia: Code(s): E16.2 - Hypoglycemia, unspecified Status: Acute (2) Leg weakness, bilateral: Code(s): R29.898 - Other symptoms and signs involving the musculoskeletal system Status: Acute Plan Hypoglycemia Type 2 diabetes insulin dependent -continue monitor blood sugars a.c. HS -may need to adjust home insulin -hypoglycemia protocol -for type 2 diabetes at patient at home is on glargine, Humulin R 20 units BID, metformin Low back pain, lower leg weakness -PT OT consulted -CT scan was concerning for age-indeterminate L2 fracture possibly -MRI lumbar spine ordered Chronic conditions -depression: Sertraline -tremors?: primidone, propranolol -essential hypertension: Lisinopril, propranolol -hyperlipidemia: Fenofibrate, atorvastatin -diabetic peripheral neuropathy: Gabapentin Diet: Diabetic diet DVT prophylaxis: Lovenox Code status: Full code Disposition: Home in 1-2 days Time Spent With Patient Time: 35 minutes Subjective Date/time seen: 06/06/24 14:12 Interval history: Patient seen examined. He still has low back pain. CT scan was concerning for L2 compression fraction. Ordered a MRI to further evaluate L2 spine. Patient's blood sugars are improved. Patient states he has had decreased p.o. intake and this would like to his hypoglycemia as he was continuing his regular insulin doses. We will continue to monitor and adjust insulin as needed. Patient denies fever, chills, nausea vomiting, diarrhea. He endorses low back pain. Review of Systems Review of Systems: 10 point ROS complete, negative other than what is specified in HPI. Exam Narrative: - GENERAL: Pleasant male. Well-nourished. - EYES: EOMI. Anicteric. - HENT: Moist mucous membranes. Edentulous - LUNGS: Clear to auscultation bilaterally, no wheezing, rhonchi, or rales. - CARDIOVASCULAR: Regular rate and rhythm. No murmur. No JVD. - ABDOMEN: Soft, non-tender and non-distended. No palpable masses. - EXTREMITIES: No edema. Peripheral pulses 2+. Non-tender. - NEUROLOGIC: No focal neurological deficits. CN II-XII grossly intact. - PSYCHIATRIC: Awake, Alert and oriented x 3. Appropriate mood and affect. - SKIN: No rashes or lesions. Warm. - LYMPH: No cervical lymphadenopathy. Objective Data Vital Signs Vital Signs: Vital Signs - 24 hr 06/05/24 20:28 06/05/24 20:46 06/06/24 05:00 Temperature 36.7 C 36.4 C L Pulse Rate 76 77 72 Respiratory Rate 18 16 Blood Pressure 108/64 115/63 Pulse Oximetry 96 96 06/06/24 08:54 Temperature Pulse Rate 76 Respiratory Rate Blood Pressure Pulse Oximetry Intake/Output Intake/Output: Intake & Output 06/03/24 06/04/24 06/05/24 06/06/24 23:59 23:59 23:59 23:59 Intake Total 1000 1022 710 Output Total 550 1 Balance 1000 472 709 Meds/Results Medications: Active Medications Generic Name Dose Route Start Last Admin Trade Name Freq PRN Reason Stop Dose Admin Acetaminophen 650 mg 06/04/24 22:56 Acetaminophen 325 Mg Tablet PO Q4H PRN Mild Pain (1-3) or Fever Atorvastatin Calcium 20 mg 06/05/24 09:00 06/06/24 08:54 Atorvastatin 20 Mg Tablet PO 20 mg DAILY SPENCER Administration Dextrose 12.5 gm 06/04/24 17:06 06/04/24 18:58 Dextrose 50% 25 Gm/50 Ml Syringe IV PUSH 12.5 gm PRN PRN Administration Hypoglycemia Protocol Enoxaparin Sodium 40 mg 06/05/24 09:00 06/06/24 08:54 Enoxaparin 40 Mg/0.4 Ml Syringe SUB-Q 40 mg DAILY SPENCER Administration Fenofibrate 160 mg 06/05/24 09:00 06/06/24 08:55 Fenofibrate 160 Mg Tablet PO 160 mg DAILY SPENCER Administration Gabapentin 600 mg 06/05/24 09:00 06/06/24 13:07 Gabapentin 300 Mg Capsule PO 600 mg TID SPENCER Administration Glucagon 1 mg 06/04/24 17:06 Glucagon For Inj 1 Mg Vial IM PRN PRN Hypoglycemia Protocol Glucose 15 gm 06/04/24 17:06 06/04/24 18:46
[2024-06-06 16:30] LABS: Glucose Point of Care 302 mg/dl (65-105)
[2024-06-06 20:23] LABS: Glucose Point of Care 252 mg/dl (65-105)
[2024-06-06 20:30] VITALS: BP 132/72; PULSE 74; RESP 18; TEMP 36.8; O2SAT 98
[2024-06-06 20:39] VITALS: PULSE 78
[2024-06-07 05:00] VITALS: BP 112/71; PULSE 93; RESP 18; TEMP 36.4; O2SAT 96
[2024-06-07 06:18] LABS: Basophils Percent Auto 0.4 % (0.2-1.2); Eosinophils Absolute Auto 0.2 K/mm3 (0-0.3); Eosinophils Percent Auto 2.2 % (0-4.4); Hematocrit 38.5 % (42.0-52.0); Hemoglobin 12.9 g/dL (14.0-18.0); Immature Granulocyte Absolute 0.03 K/mm3 (0.00-0.031); Immature Granulocyte Percent A 0.3 % (0-0.5); Lymphocytes Absolute Auto 2.26 K/mm3 (0.9-3.2); Lymphocytes Percent Auto 24.7 % (18.3-44.2); Mean Corpuscular HGB Conc 33.5 g/dl (32-36); Mean Corpuscular Hemoglobin 31.2 pg (26-34); Mean Platelet Volume 11.5 fl (7.4-10.4); Monocytes Absolute Auto 0.6 K/mm3 (0.1-0.6); Monocytes Percent Auto 6.8 % (2.6-8.5); Neutrophils Percent Auto 65.6 % (45.5-73.1); Platelet Count Result 178 k/mm3 (150-375); Red Blood Count 4.14 M/mm3 (4.6-6.20); Red Cell Distribution Width 12.8 % (11.5-14.5); White Blood Count 9.2 K/mm3 (4.5-10.0)
[2024-06-07 06:35] LABS: Alanine Aminotransferase 66 U/L (6-50); Albumin Level 4.2 g/dL (3.5-5.1); Alkaline Phosphatase 50 U/L (38-126); Anion Gap 8 mmol/L (4-12); Aspartate Amino Transferase 103 U/L (17-59); Bilirubin,Total 0.9 mg/dL (0.2-1.3); Blood Urea Nitrogen 14 mg/dL (9-20); Calcium 9.3 mg/dL (8.4-10.2); Carbon Dioxide 27 mmol/L (22-30); Chloride 100 mmol/L (98-107); Estimated CRCL calculation 64 ml/min; Estimated Glomerular Filt Rate > 60; Glucose 197 mg/dL (65-110); Potassium 3.9 mmol/L (3.4-5.0); Sodium 135 mmol/L (137-145)
[2024-06-07 07:41] LABS: Glucose Point of Care 222 mg/dl (65-105)
[2024-06-07] MEDS: INSULIN ASPART (*BKC) 100 UNITS/ML SUB-Q (08:57)
[2024-06-07 08:58] VITALS: PULSE 76
[2024-06-07] MEDS: PROPRANOLOL HCL 20 MG TABLET PO (08:58)
[2024-06-07] MEDS: FENOFIBRATE 160 MG TABLET PO (08:58)
[2024-06-07] MEDS: ATORVASTATIN 20 MG TABLET PO (08:58)
[2024-06-07] MEDS: GABAPENTIN 300 MG CAPSULE 600 MG PO ×2 (08:58→12:00)
[2024-06-07] MEDS: lisinopriL 2.5 MG TABLET PO (08:58)
[2024-06-07] MEDS: PRIMIDONE 50 MG TABLET 100 MG PO (08:58)
[2024-06-07] MEDS: SERTRALINE HCL 50 MG TABLET 200 MG PO (08:58)
[2024-06-07] MEDS: ENOXAPARIN 40 MG/0.4 ML SYRINGE SUB-Q (08:59)
[2024-06-07 11:39] LABS: Glucose Point of Care 175 mg/dl (65-105)
[2024-06-07 13:00] VITALS: BP 98/54; PULSE 72; RESP 18; TEMP 36.2; O2SAT 95
--- NOTE | 2024-06-07 13:09 | PM.DS ---
DS: Admitting Diagnosis Discharge Date 06/07/24 Admitting Diagnosis Hypoglycemia DS: Discharge Diagnosis Discharge Diagnosis (1) Hypoglycemia: Code(s): E16.2 - Hypoglycemia, unspecified Status: Acute (2) Abnormal urinalysis: Code(s): R82.90 - Unspecified abnormal findings in urine Status: Acute (3) Leukocytosis: Code(s): D72.829 - Elevated white blood cell count, unspecified Status: Acute (4) Nausea: Code(s): R11.0 - Nausea Status: Acute DS: Summary Hospital Course Reason for hospitalization: Hypoglycemia Hospital Course: Patient is a 64-year-old male past history anxiety/depression, vertigo, COPD, type 2 diabetes who presents to ED with complaints confusion and lower extremity weakness with back pain. On arrival patient's glucose was 35 he had decreased p.o. intake due to nausea. During hospitalization he required only about 15 units of insulin sliding scale per day. I have decreased his home glargine from 100 units 10 units, decrease Humulin R from 20 units b.i.d. to 5 units b.i.d. he will continue keeping a blood sugar log and follow-up with his PCP for ongoing management of diabetes. Patient's infectious workup was negative, UA was cloudy but no bacteria. Respiratory panel negative. Blood cultures no growth to date. Her low back pain a CT lumbar spine was concerning for age-indeterminate L2 fracture, subsequent MRI of lumbar spine shows chronic L2 fracture. He can continue with OTC pain control for his back. Patient was monitored from 06/04-06/07 with no acute issues after cutting back his insulin. At time of discharge patient's labs stable, vitals stable, patient is stable for discharge home. Patient follow-up with PCP in 1 week for diabetes management. Patient understands and agrees with plan. Status at Discharge Cognitive/behavioral status at discharge: baseline Time Spent with Patient Time attestation: Total time spent providing and/or coordinating discharge services: 35 minutes Exam Narrative: - GENERAL: Pleasant male. Well-nourished. - EYES: EOMI. Anicteric. - HENT: Moist mucous membranes. Edentulous - LUNGS: Clear to auscultation bilaterally, no wheezing, rhonchi, or rales. - CARDIOVASCULAR: Regular rate and rhythm. No murmur. No JVD. - ABDOMEN: Soft, non-tender and non-distended. No palpable masses. - EXTREMITIES: No edema. Peripheral pulses 2+. Non-tender. - NEUROLOGIC: No focal neurological deficits. CN II-XII grossly intact. - PSYCHIATRIC: Awake, Alert and oriented x 3. Appropriate mood and affect. - SKIN: No rashes or lesions. Warm. - LYMPH: No cervical lymphadenopathy. DS: Data Data Completed and Pending Labs on day of discharge: Labs from last 24 hours 06/07/24 06/07/24 06/07/24 11:32 07:34 05:42 WBC 9.2 RBC 4.14 L Hgb 12.9 L Hct 38.5 L MCV 93.0 MCH 31.2 MCHC 33.5 RDW 12.8 Plt Count 178 MPV 11.5 H Immature Gran % (Auto) 0.3 Neut % (Auto) 65.6 Lymph % (Auto) 24.7 [place] % (Auto) 6.8 Eos % (Auto) 2.2 Baso % (Auto) 0.4 Lymph # (Auto) 2.26 [place] # (Auto) 0.6 Eos # (Auto) 0.2 Baso # (Auto) 0.0 Abs Immat Gran (auto) 0.03 Absolute Neuts (auto) 6.0 Absolute Nucleated RBC 0.000 Nucleated RBC % 0.0 Sodium 135 L Potassium 3.9 Chloride 100 Carbon Dioxide 27 Anion Gap 8 BUN 14 D Creatinine 0.90 Estim Creat Clear Calc 64 Estimated GFR > 60 Glucose 197 H POC Capillary Glucose 175 H 222 H Calcium 9.3 Total Bilirubin 0.9 AST 103 H ALT 66 H Alkaline Phosphatase 50 Total Protein 7.0 Albumin 4.2 06/06/24 06/06/24 19:36 16:27 WBC RBC Hgb Hct MCV MCH MCHC RDW Plt Count MPV Immature Gran % (Auto) Neut % (Auto) Lymph % (Auto) [place] % (Auto) Eos % (Auto) Baso % (Auto) Lymph # (Auto) [place] # (Auto) Eos # (Auto) Baso # (Auto) Abs Immat Gran (auto) Absolu
== END 2024-06-07 14:38 | disposition home or self-care (01) ==
LOC: ANHED 13:24 → ANHIMU 17:47 → ANH3MEDSUR 06-07 09:55
PROVIDERS: Nurse Practitioner Acute Care; Admitting Provider Family Medicine; Emergency Provider Emergency Medicine; PCP Internal Medicine; Visit Provider Student in an Organized Health Care Education/Training Program
DX: E11.649 Type 2 diabetes mellitus with hypoglycemia without coma (principal); R82.90 Unspecified abnormal findings in urine; D72.829 Elevated white blood cell count, unspecified; R11.0 Nausea; E78.5 Hyperlipidemia, unspecified; R25.1 Tremor, unspecified; E11.65 Type 2 diabetes mellitus with hyperglycemia; M48.56XA Collapsed vertebra, not elsewhere classified, lumbar region, initial encounter for fracture; J44.9 Chronic obstructive pulmonary disease, unspecified; R41.3 Other amnesia; R29.898 Other symptoms and signs involving the musculoskeletal system; F41.9 Anxiety disorder, unspecified; F33.40 Major depressive disorder, recurrent, in remission, unspecified; G56.02 Carpal tunnel syndrome, left upper limb; Z20.822 Contact with and (suspected) exposure to COVID-19; Z79.4 Long term (current) use of insulin; Z79.84 Long term (current) use of oral hypoglycemic drugs; Z79.899 Other long term (current) drug therapy; Z88.0 Allergy status to penicillin
CPT/HCPCS: 36415; 70450; 71046; 72158; 74177; 80048; 80053; 81001; 82948; 83036; 83735; 85025; 87040; 87086; 87637; 96361; 96372; 96374; 97161; 99285; A9270; A9577; G0378; G0379; J1650; J1815; J7030; Q9967

== ENCOUNTER 2024-07-28 12:30 | Outpatient (CLI) | payer OTHER, SELFPAY ==
[2024-07-28 14:45] LABS: Cholesterol 157 mg/dL (0-200); HDL Direct 24 mg/dL; Triglycerides 181 mg/dL (<150)
[2024-07-28 14:59] LABS: LDL Cholesterol Direct 102 mg/dL
== END 2024-07-28 12:31 | disposition home or self-care (01) ==
PROVIDERS: PCP Internal Medicine; Visit Provider Internal Medicine
DX: E78.5 Hyperlipidemia, unspecified (principal); D64.9 Anemia, unspecified; E11.65 Type 2 diabetes mellitus with hyperglycemia; G62.9 Polyneuropathy, unspecified; Z79.4 Long term (current) use of insulin
CPT/HCPCS: 36415; 80061; 82607; 82728; 82746

== ENCOUNTER 2024-09-11 10:16 | Outpatient (CLI) | payer OTHER, SELFPAY ==
[2024-09-11 13:20] LABS: Basophils Percent Auto 0.4 % (0.2-1.2); Eosinophils Absolute Auto 0.3 K/mm3 (0-0.3); Eosinophils Percent Auto 2.6 % (0-4.4); Hematocrit 41.5 % (42.0-52.0); Hemoglobin 13.3 g/dL (14.0-18.0); Immature Granulocyte Absolute 0.04 K/mm3 (0.00-0.031); Immature Granulocyte Percent A 0.4 % (0-0.5); Lymphocytes Absolute Auto 2.43 K/mm3 (0.9-3.2); Lymphocytes Percent Auto 23.7 % (18.3-44.2); Mean Corpuscular Hemoglobin 30.1 pg (26-34); Mean Corpuscular Volume 93.9 fl (80-100); Mean Platelet Volume 10.7 fl (7.4-10.4); Monocytes Absolute Auto 0.6 K/mm3 (0.1-0.6); Neutrophils Absolute Auto 6.9 K/mm3 (1.3-6.7); Neutrophils Percent Auto 66.9 % (45.5-73.1); Platelet Count Result 189 k/mm3 (150-375); Red Blood Count 4.42 M/mm3 (4.6-6.20); Red Cell Distribution Width 12.8 % (11.5-14.5); White Blood Count 10.2 K/mm3 (4.5-10.0)
[2024-09-11 13:35] LABS: Alanine Aminotransferase 26 U/L (6-50); Albumin Level 4.3 g/dL (3.5-5.1); Alkaline Phosphatase 53 U/L (38-126); Anion Gap 11 mmol/L (4-12); Aspartate Amino Transferase 49 U/L (17-59); Bilirubin,Total 0.8 mg/dL (0.2-1.3); Blood Urea Nitrogen 15 mg/dL (9-20); Calcium 9.2 mg/dL (8.4-10.2); Carbon Dioxide 28 mmol/L (22-30); Chloride 103 mmol/L (98-107); Cholesterol 163 mg/dL (0-200); Estimated Glomerular Filt Rate > 60; Glucose 156 mg/dL (65-110); HDL Direct 26 mg/dL; Potassium 4.8 mmol/L (3.4-5.0); Sodium 142 mmol/L (137-145); Triglycerides 154 mg/dL (<150)
[2024-09-11 13:46] LABS: LDL Cholesterol Direct 107 mg/dL
[2024-09-11 13:56] LABS: Microalbumin Urine Random 67.9 mg/L (0-16.7)
[2024-09-11 14:01] LABS: Creatinine Urine 189.4 mg/dL; MALB Creatinine Ratio 35.9 mg/g (0-30)
[2024-09-11 14:40] LABS: Hemoglobin A1C 7.6 % (<5.7)
--- OUTSIDE RECORDS SUMMARY | 2024-09-14 12:42 | XMS_ITS | Clinical Summary ---
Author Organization [facility] Address [address] [place] [id number] Care Team Providers Care Forensic Anthropologist Name Role Phone Nazario Almodovar DO Primary Care Provider [phone] Allergies Active Allergy Reactions Criticality Noted Date Comments Amoxicillin Penicillins Swelling High 11/11/2021 Medications aspirin (ASPIR-81) 81 mg tablet take 1 tablet by oral route every day 0 0 6 Active Additional Information Patient not taking.Reported on 11/16/2023 metFORMIN (GLUCOPHAGE) 1,000 mg tablet take 1 tablet by oral route 2 times every day with morning and evening meals 0 0 6 Active fenofibrate (TRIGLIDE) 160 mg tablet take 1 tablet by oral route every day 0 0 6 Active propranolol (INDERAL) 20 mg tablet take 1 tablet by oral route 2 times every day 0 0 6 Active insulin glargine (LANTUS) 100 unit/mL injection inject 88 U by subcutaneous route as per insulin protocol 0 vial 0 6 Active Additional Information Patient not taking.Reported on 11/16/2023 gabapentin (NEURONTIN) 600 mg tablet Take 1 tablet (600 mg total) by mouth 3 (three) times a day 4 Active sertraline (ZOLOFT) 100 mg tablet Take 1 tablet (100 mg total) by mouth daily Active atorvastatin (LIPITOR) 20 mg tablet Take 1 tablet (20 mg total) by mouth daily 2 Active meclizine (ANTIVERT) 25 mg tablet Take 1 tablet (25 mg total) by mouth Active donepeziL (ARICEPT) 5 mg tablet Take 1 tablet (5 mg total) by mouth nightly Active BASAGLAR 100 unit/mL (3 mL) pen for injection INJECT 100 UNITS SUBCUTANEOUSLY ONCE DAILY 4 Active TRUEplus Insulin 0.3 mL 31 gauge x 16 syringe 4 Active insulin syringe-needle U-100 1 mL 31 gauge x 01/05 syringe USE 1 SYRINGE THREE TIMES DAILY WITH INSULIN 0 Active HumuLIN R 100 unit/mL vial for injection INJECT 20 UNITS SUBCUTANEOUSLY TWICE DAILY DIRECTED Active albuterol HFA (PROVENTIL HFA,VENTOLIN HFA,PROAIR HFA) 90 mcg/actuation inhaler INHALE 2 PUFFS BY MOUTH EVERY 4 HOURS DIRECTED 2 Active primidone (MYSOLINE) 50 mg tabletIndicati ons:Essential tremor Take 2 tablets by mouth twice a day 120 tablet 3 4 Active Active Problems Problem Noted Date Diagnosed Date Essential tremor 11/16/2023 Shortness of breath 07/03/2015 Cough 07/03/2015 Disorder of lung 03/26/2015 Encounters Date Type Department Care Team Description 06/14/2024 Telephone [facility] [address] [place] [address] [address], [place] [address] Noel Rendon MD from Last 3 Months Medical History Medical History Date Comments Hx Other Medical diabetes mellit us, seasonal allergies, hyperlipide; Comments: MAF 09/19/2015 - Migraine Parkinson's disease (HCC) Diabetes mellitus (HCC) Depression Family History Medical History Relation Name Comments Hypertension Father Hypertension; Relation Name Status Comments Father Social History Tobacco Use Types Packs/Day Years Used Date Smoking Tobacco: Former Tobacco Cessation:Counseling Given: Not Answered Alcohol Use Standard Drinks/Week Comments No 0 (1 standard drink = 0.6 oz pur e alcohol) Personal Safety Answer Date Recorded Getting School Help Needed Not on file 08/21 Sex and Gender Information Value Date Recorded Sex Assigned at Not on file 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 Gender Identity Not on file Sexual Orientation Not on file Obstetrics History Last Filed Vital Signs Vital Sign Reading Time Taken Comments Blood Pressure 128/75 03/07/2024 8:30 AM CDT Pulse 67 03/07/2024 8:30 AM CDT Temperature - - Respiratory Rate - - Oxygen Saturation 97% 03/07/2024 8:30 AM CDT Inhaled Oxygen Concentration - - Weight 81.7 kg (180 lb 3.2 oz) 03/07/2024 8:30 A M CDT Height 165.1 cm (5' 5 ) 03/07/2024 8:30 AM CDT Body Mass Index 29.99 03/07/2024 8:30 AM CDT Plan of Treatment Health Maintenance Due Date Last Done Comments Colon Cancer Screening-Colonoscopy 1961 Depression Screening 1961 Hepatitis C Screening 1961 Prostate Cancer Screening-PSA 1961 DTaP/Tdap/Td Vaccine (1 - Tdap) 01/28/1972 Hepatitis B Screening 1979 Regular Well Visit/Exam 18-64 1979 Zoster Vaccine (1 of 2) 2011 Influenza Vaccine (#1) 2024 Pneumococcal vaccine <65 Aged Out No longer eligible based on patient's age to complete this topic Insurance [facility] Care Teams Forensic Anthropologist Relationship Specialty Start Date End Date Nazario Almodovar DO PCP - General Internal Medicine 03/07/24
--- OUTSIDE RECORDS SUMMARY | 2024-09-14 12:42 | XMS_ITS | Referral Summary ---
Author Organization [facility] Address [address] [place] [address] Care Team Providers Care Javascript Ui Developer Name Role Phone Nazario Almodovar DO Primary Care Provider [phone]- [phone] Encounters Date Type Department Care Team Description 06/14/2024 Telephone [facility] [address] [place] [address] [address] [place] [address] Noel Rendon MD from Last 3 Months Allergies Active Allergy Reactions Criticality Noted Date [...] TRUEplus Insulin 0.3 mL 31 gauge x 5/16 syringe 4 Active insulin syringe-needle U-100 1 mL 31 gauge x 5/16 syringe USE 1 SYRINGE THREE TIMES DAILY [...] 07/03/2015 Cough 07/03/2015 Disorder of lung 03/26/2015 Social History Tobacco Use Types Packs/Day Years [...] on file 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
--- OUTSIDE RECORDS SUMMARY | 2024-09-14 12:42 | XMS_ITS | CONTINUITY OF CARE DOCUMENT ---
Author Name scottbernardgerry Address Unknown Organization [facility] Address [address] [facility] [address] [place] [address] Phone [phone] Care Team Providers Care Elevator Inspector Name Role Phone Minh GARAY, Clif Unavailable JEANNE MERCADO MD Unavailable [phone] JEANNE MERCADO MD Unavailable [phone] PROBLEMS Condition Status Date Provider Notes Chest pain active Krista Sloan INSURANCE PROVIDERS Payer name Policy type / Coverage type [place] red libertarian [place] MED[place] Medicaid [id number] HISTORY OF PROCEDURES Procedure Date Procedure Name Provider Procedure Notes S tatus Stress EKG Kristian Ness MD completed Cardiolite, 2 units Jose Cuadra MD completed SPECT Images Kristian Ness MD complet ed
== END 2024-09-11 10:17 | disposition home or self-care (01) ==
LOC: ANHGOSHLAB 10:17
PROVIDERS: PCP Internal Medicine; Visit Provider Internal Medicine
DX: E11.65 Type 2 diabetes mellitus with hyperglycemia (principal); R79.89 Other specified abnormal findings of blood chemistry; R63.4 Abnormal weight loss; Z79.4 Long term (current) use of insulin
CPT/HCPCS: 36415; 80053; 80061; 82043; 83036; 84443; 85025

== ENCOUNTER 2025-01-09 15:53 | Emergency (ER) | payer OTHER, SELFPAY ==
[2025-01-09] VITALS (8 sets, daily range): BP systolic 88–103; BP diastolic 56–68; PULSE 66–75; RESP 18–24; TEMP 36.6–36.7; O2SAT 96–99
--- NOTE | ~2025-01-09 | CT_ITS ---
EXAMINATION: CT cervical spine wo con DATE: 01/09/2025 17:49 INDICATION: fall TECHNIQUE: Computed tomography (CT) of the cervical spine was performed without intravenous contrast. Automated exposure control and iterative reconstruction technique were employed. The dose-length pro duct was 398.33 mGy-cm. COMPARISON: None. FINDINGS: Vertebral Body Alignment: Intact. Craniocervical and atlantoaxial alignment: Moderate degenerative change. Alignment intact. Osseous structures/fracture: No evidence of a lytic or blastic process in the visualized spine. No e vidence of acute fracture. Cervical soft tissues: The paraspinal soft tissues planes are maintained. Degenerative changes: Degenerative changes, without severe neural foraminal or central canal narrowin g. IMPRESSION: No acute fracture or traumatic malalignment in the cervical spine. Reviewed, dictated and finalized at location K.
--- NOTE | ~2025-01-09 | XR_ITS ---
EXAMINATION: XR chest 2V Exam Date/Time: 01/09/2025 16:50 CDT HISTORY: syncopal episode Comparison: None. RESULT: Lines, tubes, and devices: None. Lungs and pleura: Clear. Cardiomediastinal silhouette: Stable. Calcified nodes. Other: No acute osseous or upper abdominal finding. IMPRESSION: No acute cardiopulmonary process. Reviewed, dictated and finalized at location K.
--- NOTE | ~2025-01-09 | CT_ITS ---
EXAMINATION: CT brain wo con DATE: 01/09/2025 17:49 INDICATION: syncope, head lac . TECHNIQUE: Computed tomography (CT) of the head was performed without intravenous contrast. The mA wa s adjusted according to patient size. Iterative reconstruction technique was employed. The dose-lengt h product was 605.33 mGy-cm. COMPARISON: 06/05/2024. FINDINGS: No acute intracranial hemorrhage or extra-axial fluid collection. No hydrocephalus, mass, or herniation. No acute ischemic infarct. Unremarkable dural venous sinus attenuation. No acute osseous abnormality. Subcutaneous emphysema and mild soft tissue swelling in the bifrontal s calp. The aerated spaces are clear. Mildly prominent bifrontal extra-axial spaces. IMPRESSION: No acute intracranial process. Reviewed, dictated and finalized at location K.
--- NOTE | ~2025-01-09 | XR_ITS ---
HISTORY: shoulder injury COMPARISON: None TECHNIQUE: 2 views of the right shoulder were performed FINDINGS: No acute fracture. The glenohumeral joint space is maintained. Significant degenerative disease is identified within the acromioclavicular joint space with osteophy te formation and joint space narrowing. The visualized portion of the adjacent right lung is clear. The humeral head is well seated within the glenoid fossa. IMPRESSION: Degenerative disease, without acute fracture or anterior dislocation. Reviewed, dictated and finalized at location A.
--- OUTSIDE RECORDS SUMMARY | 2025-01-09 15:55 | XMS_ITS | Referral Summary ---
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
--- OUTSIDE RECORDS SUMMARY | 2025-01-09 15:55 | XMS_ITS | CONTINUITY OF CARE DOCUMENT ---
Author Name scottbernardgerry Address Unknown Organization [facility] Address [address] [facility] [address] [place] [address] Phone [phone] Care Team Providers Care Leaf Stripper Name Role Phone Minh GARAY, Clif Unavailable JEANNE MERCADO MD Unavailable [phone] JEANNE MERCADO MD Unavailable [phone] PROBLEMS Condition Status Date Provider Notes Chest pain active Krista Sloan INSURANCE PROVIDERS Payer name Policy type / Coverage type [place] red constitution party [place] MED[place] Medicaid [id number] HISTORY OF PROCEDURES Procedure Date Procedure Name Provider Procedure Notes S tatus Stress EKG Kristian Ness MD completed Cardiolite, 2 units Jose Cuadra MD completed SPECT Images Kristian Ness MD complet ed
--- OUTSIDE RECORDS SUMMARY | 2025-01-09 15:55 | XMS_ITS | Clinical Summary ---
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
--- NOTE | 2025-01-09 16:28 | ECG_ITS ---
Test Date: 2025-01-09 16:35:36 Measurements Intervals [place] Rate: 66 P: 52 DE: 186 QRS: -5 QRSD: 103 T: 59 QT: 397 QTc: 419 Interpretive Statements SINUS RHYTHM NORMAL ECG Compared to ECG 06/02/2024 11:45:41 Sinus tachycardia no longer present Left-axis deviation no longer present Electronically Signed On 01-10-2025 08:19:05 CDT by Marshall Florence M.D.
--- NOTE | 2025-01-09 16:38 | PC.NURSE ---
EDP Dr. Sellers gave verbal order for fluids d/t pt low BP
[2025-01-09] MEDS: SODIUM CHLORIDE 0.9% IV 1,000 ML 999 ML (16:42)
[2025-01-09 16:50] LABS: Basophils Percent Auto 0.2 % (0.2-1.2); Eosinophils Absolute Auto 0.2 K/mm3 (0-0.3); Eosinophils Percent Auto 1.6 % (0-4.4); Hematocrit 36.4 % (42.0-52.0); Hemoglobin 11.7 g/dL (14.0-18.0); Immature Granulocyte Absolute 0.03 K/mm3 (0.00-0.031); Immature Granulocyte Percent A 0.3 % (0-0.5); Lymphocytes Absolute Auto 1.76 K/mm3 (0.9-3.2); Lymphocytes Percent Auto 16.1 % (18.3-44.2); Mean Corpuscular HGB Conc 32.1 g/dl (32-36); Mean Corpuscular Hemoglobin 29.8 pg (26-34); Mean Corpuscular Volume 92.6 fl (80-100); Mean Platelet Volume 10.4 fl (7.4-10.4); Monocytes Absolute Auto 0.7 K/mm3 (0.1-0.6); Monocytes Percent Auto 6.1 % (2.6-8.5); Neutrophils Absolute Auto 8.3 K/mm3 (1.3-6.7); Neutrophils Percent Auto 75.7 % (45.5-73.1); Platelet Count Result 180 k/mm3 (150-375); Red Blood Count 3.93 M/mm3 (4.6-6.20); Red Cell Distribution Width 13.1 % (11.5-14.5); White Blood Count 10.9 K/mm3 (4.5-10.0)
[2025-01-09 17:00] LABS: Alanine Aminotransferase 38 U/L (6-50); Albumin Level 4.2 g/dL (3.5-5.1); Alkaline Phosphatase 42 U/L (38-126); Anion Gap 10 mmol/L (4-12); Aspartate Amino Transferase 47 U/L (17-59); Bilirubin,Total 0.6 mg/dL (0.2-1.3); Blood Urea Nitrogen 17 mg/dL (9-20); Calcium 9.3 mg/dL (8.4-10.2); Carbon Dioxide 22 mmol/L (22-30); Chloride 107 mmol/L (98-107); Estimated CRCL calculation 63 ml/min; Estimated Glomerular Filt Rate > 60; Glucose 164 mg/dL (65-110); Potassium 4.3 mmol/L (3.4-5.0); Sodium 139 mmol/L (137-145)
--- OUTSIDE RECORDS SUMMARY | 2025-01-09 18:05 | XMS_ITS | Clinical Summary ---
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
--- OUTSIDE RECORDS SUMMARY | 2025-01-09 18:05 | XMS_ITS | Referral Summary ---
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
--- OUTSIDE RECORDS SUMMARY | 2025-01-09 18:05 | XMS_ITS | CONTINUITY OF CARE DOCUMENT ---
Author Name scottbernardgerry Address Unknown Organization [facility] Address [address] [facility] [address] [place] [address] Phone [phone] Care Team Providers Care Catering And Events Manager Name Role Phone Minh GARAY, Clif Unavailable JEANNE MERCADO MD Unavailable [phone] JEANNE MERCADO MD Unavailable [phone] PROBLEMS Condition Status Date Provider Notes Chest pain active Krista Sloan INSURANCE PROVIDERS Payer name Policy type / Coverage type [place] red republican [place] MED[place] Medicaid [id number] HISTORY OF PROCEDURES Procedure Date Procedure Name Provider Procedure Notes S tatus Stress EKG Kristian Ness MD completed Cardiolite, 2 units Jose Cuadra MD completed SPECT Images Kristian Ness MD complet ed
[2025-01-09 18:19] LABS: Ethanol < 10 mg/dL (<10)
[2025-01-09] MEDS: LACTATED RINGERS 1,000 ML 999 ML IV CONT (18:19)
--- NOTE | 2025-01-09 18:36 | ED_ITS ---
HPI - General Adult General Chief complaint: Syncope Stated complaint: blacked out and fell, hit head Time Seen by Provider: 01/09/25 17:58 History of Present Illness HPI narrative: 64-year-old male present to emergency department for evaluation after having a syncopal episode. Patient states that he was walking in his house and had a syncopal episode causing him to fall and strike his head and injure his right shoulder. Patient states he has been having these episodes more frequently. Denied having a sensation of lightheaded or dizziness prior to the syncopal episode. Patient denies any recent alcohol use. Patient denies any recreational medications. Related Data Home Medications ?Medication ?Instructions ?Recorded ?Confirmed ?Last Taken ?Type lancets 26 gauge (TRUEplus Lancets) #100 ea 12/25/19 09/19/24 Unknown History pen needle, diabetic 31 gauge x #1,200 ea 12/25/19 09/19/24 Unknown History 16 (BD Ultra-Fine Short Pen Needle) propranolol 20 mg tablet 20 mg PO Q12H 12/25/19 09/19/24 Unknown History donepezil 5 mg tablet (Aricept) 5 mg PO QHS 09/21/24 Unknown History omega-3 fatty acids 1,000 mg 1,000 mg PO DAILY 09/21/24 Unknown History capsule sertraline 100 mg tablet 200 mg PO DAILY 09/21/24 Unknown History Allergies Allergy/AdvReac Type Severity Reaction Status Date / Time amoxicillin Allergy Unknown throat Verified 01/09/25 16:40 swelling Penicillins Allergy Unknown throat Verified 01/09/25 16:40 swelling Review of Systems 2 Review of Systems: All systems reviewed & are unremarkable except as noted in HPI and below [facility] Past Medical History Medical History (Updated 01/09/25 @ 19:38 by Juan Daniel Lackey MD) Benign essential tremor Acquired hypothyroidism Left carpal tunnel syndrome Major depressive disorder, recurrent episode Type 2 diabetes mellitus with hyperglycemia, with long-term current use of insulin Memory loss COPD (chronic obstructive pulmonary disease) Anxiety Diabetes Benign positional vertigo Surgical History Surgical History History of right knee surgery History of surgery on right wrist History of hernia repair Family History Family History Father Family history of diabetes mellitus in first degree relative Alcoholism in family member Mother Diabetes mellitus Grandparent Diabetes mellitus Alcoholism in family member Social History Social History Social History: Caffeine Cola 4 bottles a day Smoking status: Never smoker Alcohol intake: never Substance use: current Substance use type: marijuana Do You Feel Safe in your Home?: Yes Lack of Transportation: No Lack of Food: Never True Current Housing: I Have Housing Concerned About Future Housing: No Difficulty Paying Gas/Electric Bills: YES Difficulty Paying for Meds: No Currently Unemployed: No Education: High School Diploma/GED Difficulty w/ Childcare or Family Care: No Living arrangements: with family Occupation/Education: retired Gender identity (if verbalized by the patient): Male Sexual Orientation (if Verbalized by the Patient): Straight or Heterosexual Spiritual care concerns: No Exam 2 Narrative: APPEARANCE: Well appearing, no pain, no distress, well-nourished. HEAD: normocephalic, superficial laceration to forehead EYES: PERRLA/EOMI, conjunctivae clear. NOSE: Normal no drainage EARS:TMS clear with good light reflex. THROAT: Pharynx clear, no exudate. NECK: Supple. No adenopathy, no masses. RESPIRATORY: Airway patent, respirations nonlabored. Clear to auscultation bilaterally, no rales, rhonchi, wheezing. CARDIOVASCULAR: Regular rate and rhythm without murmurs rubs or gallops. ABDOMINAL: Soft, nontender, nondistended, normal bowel sounds MUSCULOSKELETAL: Moves all extremities. Strength/ROM intact, No edema, No calf tenderness. NEURO: Alert. Cranial nerves II through XII intact. Good gait. Good coordination SKIN: Superficial laceration to right shoulder PSYCHIATRIC: Normal affect/mood. Course Vital Signs Vital signs: Vital Signs Temperature 98 F 01/09/25 16:03 Pulse Rate 73 01/09/25 16:03 Respiratory Rate 20 01/09/25 16:03 Blood Pressure 88/56 L 01/09/25 16:03 Pulse Oximetry 99 01/09/25 16:03 Oxygen Delivery Room Air 01/09/25 16:03 Temperature 98.0 F 01/09/25 19:58 Pulse Rate 68 01/09/25 19:58 Respiratory Rate 18 01/09/25 19:58 Blood Pressure 101/68 05/20/25 19:58 Pulse Oximetry 98 01/09/25 19:58 Oxygen Delivery Room Air 01/09/25 16:03 Procedures Laceration Laceration 1: Date: 01/09/25 Time: 18:41 Site: face Size (cm): 2 Description: linear Depth: simple, single layer Local Anesthetic: lidocaine 1% Pre-repair: wound explored and irrigated ====== Skin Level ====== Skin layer closed with: steri strips ====== Subcutaneous Layer ====== ====== Muscle Layer ====== ====== Tendon Layer ====== Laceration 2: Date: 01/09/25 Time: 18:42 Site: upper extremity Side (If applicable): right Size (cm): 3 Description: linear Depth: simple, single layer Pre-repair: wound explored and irrigated ====== Skin Level ====== Skin layer closed with: steri strips ====== Subcutaneous Layer ====== ====== Muscle Layer ====== ====== Tendon Layer ====== Medical Decision Making MDM Narrative Medical decision making narrative: 64-year-old male present to the emergency department for evaluation for syncopal episode. Patient is currently afebrile with a leukocytosis of 10.9 and hemoglobin 11.7. Patient has no acute abnormalities on his CMP patient's alcohol was negative head CT was negative, chest x-ray shows no acute cardiopulmonary abnormality. Patient was symptomatic when having his orthostatic vitals checked and he is blood pressure did decrease. Patient was treated with 2 L of IV fluids After rehydration patient's blood pressures did improve. Patient was offered admission for further syncope workup patient declines and prefers to have outpatient follow-up. Differential Diagnosis Differential Diagnosis: TIA, CVA, hypertension, dehydration, subdural hematoma, subarachnoid hemorrhage Vital Signs Vital Signs: Vital Signs Temperature 98 F 01/09/25 16:03 Pulse Rate 73 01/09/25 16:03 Respiratory Rate 20 01/09/25 16:03 Blood Pressure 88/56 L 01/09/25 16:03 Pulse Oximetry 99 01/09/25 16:03 Oxygen Delivery Room Air 01/09/25 16:03 Temperature 98.0 F 01/09/25 19:58 Pulse Rate 68 01/09/25 19:58 Respiratory Rate 18 01/09/25 19:58 Blood Pressure 101/68 01/09/25 19:58 Pulse Oximetry 98 01/09/25 19:58 Oxygen Delivery Room Air 01/09/25 16:03 Lab Data Lab results reviewed: Yes I reviewed the patient's lab results. 01/09/25 16:39 01/09/25 16:39 Labs: Lab Results 01/09/25 Range/Units 16:39 WBC 10.9 H (4.5-10.0) K/mm3 RBC 3.93 L (4.6-6.20) M/mm3 Hgb 11.7 L (14.0-18.0) g/dL Hct 36.4 L (42.0-52.0) % MCV 92.6 (80-100) fl MCH 29.8 (26-34) pg MCHC 32.1 (32-36) g/dl RDW 13.1 (11.5-14.5) % Plt Count 180 (150-375) k/mm3 MPV 10.4 (7.4-10.4) fl Immature Gran % (Auto) 0.3 (0-0.5) % Neut % (Auto) 75.7 H (45.5-73.1) % Lymph % (Auto) 16.1 L (18.3-44.2) % [place] % (Auto) 6.1 (2.6-8.5) % Eos % (Auto) 1.6 (0-4.4) % Baso % (Auto) 0.2 (0.2-1.2) % Lymph # (Auto) 1.76 (0.9-3.2) K/mm3 [place] # (Auto) 0.7 H (0.1-0.6) K/mm3 Eos # (Auto) 0.2 (0-0.3) K/mm3 Baso # (Auto) 0.0 (0.0-0.1) K/mm3 Abs Immat Gran (auto) 0.03 (0.00-0.031) K/mm3 Absolute Neuts (auto) 8.3 H (1.3-6.7) K/mm3 Absolute Nucleated RBC 0.000 (0.0-0.012) K/mm3 Nucleated RBC % 0.0 (0.0-0.2) % Sodium 139 (137-145) mmol/L Potassium 4.3 (3.4-5.0) mmol/L Chloride 107 (98-107) mmol/L Carbon Dioxide 22 (22-30) mmol/L Anion Gap 10 (4-12) mmol/L BUN 17 (9-20) mg/dL Creatinine 0.95 (0.7-1.3) mg/dL Estim Creat Clear Calc 63 ml/min Estimated GFR > 60 (59 - ) Glucose 164 H (65-110) mg/dL Calcium 9.3 (8.4-10.2) mg/dL Total Bilirubin 0.6 (0.2-1.3) mg/dL AST 47 (17-59) U/L ALT 38 (6-50) U/L Alkaline Phosphatase 42 (38-126) U/L Total Protein 7.0 (6.3-8.2) g/dL Albumin 4.2 (3.5-5.1) g/dL Ethyl Alcohol < 10 (<10) mg/dL Imaging Data Radiologist's impression: Impressions Chest X-Ray 01/09/25 17:00 IMPRESSION: No acute cardiopulmonary process. Head CT 01/09/25 18:15 IMPRESSION: No acute intracranial process. Cervical Spine CT 01/09/25 18:47 IMPRESSION: No acute fracture or traumatic malalignment in the cervical spine. Shoulder X-Ray 01/09/25 18:59 IMPRESSION: Degenerative disease, without acute fracture or anterior dislocation. Discharge Plan Discharge Clinical Impression: Orthostatic hypotension, Laceration, Head injury Patient Disposition: Home Condition: Stable Instructions: Antibiotic Form, Hypotension (ED) Additional Instructions: Have close follow-up with your primary care physician for additional outpatient syncope workup. Drink plenty of fluids. If you have any worsening symptoms then please call or return to the emergency department. Patient Language: Armenian Prescriptions: No Action (DME) pen needle, diabetic [BD Ultra-Fine Short Pen Needle] 31 gauge x 5/16 needle See Rx Instructions .ROUTE .MEDSUPPLY Qty: 1,200 Rx Instructions: As directed propranolol 20 mg tablet 20 mg PO Q12H (DME) lancets [TRUEplus Lancets] 26 gauge misc See Rx Instructions .ROUTE .MEDSUPPLY Qty: 100 Rx Instructions: As directed insulin glargine [Basaglar KwikPen U-100 Insulin] 100 unit/mL (3 mL) insulin pen 20 unit SUB-Q DAILY Qty: 15 3RF (DME) Dexcom G6 Sensor Device See Rx Instructions .Route Qty: 3 0RF Rx Instructions: As directed (DME) Dexcom G6 Reliability Technicians Misc See Rx Instructions .Route Qty: 1 0RF Rx Instructions: As directed ([facility]) Dexcom G6 Transmitter Device See Rx Instructions .Route Qty: 1 0RF Rx Instructions: As directed levothyroxine 50 mcg capsule 50 mcg PO DAILY Qty: 30 3RF (DME) OneTouch Ultra Test Strip See Rx Instructions .Route Qty: 100 5RF Rx Instructions: Use to check bloodsugars TID ([facility]) BD Insulin Syringe U-500 1/2 mL 31 gauge x 15/64 syringe See Rx Instructions .ROUTE .MEDSUPPLY Qty: 200 1RF Rx Instructions: Use syringes twice daily ([facility]) insulin syringe-needle U-100 [BD Insulin Syringe Ultra-Fine] 0.5 mL 31 gauge x 5/16 syringe See Rx Instructions .ROUTE .MEDSUPPLY Qty: 400 1RF Rx Instructions: Use one syringe TID with insulin ([facility]) insulin syringe-needle U-100 [TRUEplus Insulin] 1 mL 31 gauge x 5/16 syringe See Rx Instructions .Route Qty: 100 0RF Rx Instructions: To inject insulin 4 times daily fenofibrate 160 mg tablet 160 mg PO DAILY Qty: 90 1RF atorvastatin 20 mg tablet 20 mg PO DAILY Qty: 90 1RF metformin 500 mg tablet extended release 24 hr 1,000 mg PO BID Qty: 360 1RF sertraline 100 mg tablet 200 mg PO DAILY donepezil [Aricept] 5 mg tablet 5 mg PO QHS omega-3 fatty acids 1,000 mg capsule 1,000 mg PO DAILY gabapentin 600 mg tablet 600 mg PO TID Qty: 270 1RF lisinopril 2.5 mg tablet See Rx Instructions .ROUTE .COMPLEX Qty: 90 0RF Dose Instruction: Take 1 tablet by mouth once daily Rx Instructions: Take 1 tablet by mouth once daily Humulin R Regular U-100 Insuln 100 unit/mL solution See Rx Instructions .ROUTE .COMPLEX Qty: 10 0RF Dose Instruction: INJECT 20 UNITS SUBCUTANEOUSLY TWICE DAILY Rx Instructions: INJECT 20 UNITS SUBCUTANEOUSLY TWICE DAILY Follow-up/Referrals: Nazario Almodovar, [Primary Care Provider] -
== END 2025-01-09 20:00 | disposition home or self-care (01) ==
PROVIDERS: Emergency Provider Emergency Medicine; PCP Internal Medicine
DX: I95.1 Orthostatic hypotension (principal); J44.9 Chronic obstructive pulmonary disease, unspecified; E11.9 Type 2 diabetes mellitus without complications; F41.9 Anxiety disorder, unspecified; M19.011 Primary osteoarthritis, right shoulder; W18.39XA Other fall on same level, initial encounter; S01.81XA Laceration without foreign body of other part of head, initial encounter
CPT/HCPCS: 36415; 70450; 71046; 72125; 73030; 80053; 82077; 85025; 93005; 96360; 99284; J7030; J7120

== ENCOUNTER 2025-01-26 19:00 | Emergency (ER) | payer OTHER, SELFPAY ==
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
[2025-01-26 19:12] VITALS: BP 97/56; PULSE 76; RESP 18; TEMP 36.6; O2SAT 99
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
[2025-01-26 21:54] VITALS: BP 101/64; PULSE 68; TEMP 36.7; O2SAT 95
[2025-01-26 22:45] VITALS: BP 97/64; PULSE 74; RESP 16; O2SAT 98
== END 2025-01-27 00:10 | disposition home or self-care (01) ==
PROVIDERS: Emergency Provider Physician Assistant; PCP Internal Medicine
DX: S32.030A Wedge compression fracture of third lumbar vertebra, initial encounter for closed fracture (principal); S42.031A Displaced fracture of lateral end of right clavicle, initial encounter for closed fracture; J44.9 Chronic obstructive pulmonary disease, unspecified; E03.9 Hypothyroidism, unspecified; E11.9 Type 2 diabetes mellitus without complications; F41.9 Anxiety disorder, unspecified; Z79.4 Long term (current) use of insulin; Z79.899 Other long term (current) drug therapy; Z79.84 Long term (current) use of oral hypoglycemic drugs; V43.52XA Car driver injured in collision with other type car in traffic accident, initial encounter
CPT/HCPCS: 72100; 72125; 72128; 72131; 73030; 99284; A4565

== ENCOUNTER 2025-02-08 12:30 | Outpatient (CLI) | payer OTHER, SELFPAY ==
[2025-02-08 19:40] LABS: Basophils Percent Auto 0.4 % (0.2-1.2); Eosinophils Absolute Auto 0.2 K/mm3 (0-0.3); Eosinophils Percent Auto 2.1 % (0-4.4); Hematocrit 39.4 % (42.0-52.0); Hemoglobin 12.8 g/dL (14.0-18.0); Immature Granulocyte Absolute 0.04 K/mm3 (0.00-0.031); Immature Granulocyte Percent A 0.5 % (0-0.5); Immature Platelet Fraction Pct 6.1 % (0.9-11.2); Lymphocytes Absolute Auto 1.85 K/mm3 (0.9-3.2); Lymphocytes Percent Auto 22.4 % (18.3-44.2); Mean Corpuscular HGB Conc 32.5 g/dl (32-36); Mean Corpuscular Hemoglobin 30.3 pg (26-34); Mean Corpuscular Volume 93.1 fl (80-100); Mean Platelet Volume 11.7 fl (7.4-10.4); Monocytes Absolute Auto 0.5 K/mm3 (0.1-0.6); Monocytes Percent Auto 5.4 % (2.6-8.5); Neutrophils Absolute Auto 5.7 K/mm3 (1.3-6.7); Neutrophils Percent Auto 69.2 % (45.5-73.1); Platelet Count Result 161 k/mm3 (150-375); Red Blood Count 4.23 M/mm3 (4.6-6.20); Red Cell Distribution Width 12.6 % (11.5-14.5); White Blood Count 8.3 K/mm3 (4.5-10.0)
[2025-02-08 20:04] LABS: Microalbumin Urine Random 37.9 mg/L (0-16.7)
[2025-02-08 20:10] LABS: Anion Gap 9 mmol/L (4-12); Blood Urea Nitrogen 19 mg/dL (9-20); Calcium 9.6 mg/dL (8.4-10.2); Carbon Dioxide 27 mmol/L (22-30); Chloride 104 mmol/L (98-107); Estimated Glomerular Filt Rate > 60; Glucose 185 mg/dL (65-110); Potassium 4.7 mmol/L (3.4-5.0); Sodium 140 mmol/L (137-145)
[2025-02-08 20:12] LABS: Creatinine Urine 213.9 mg/dL; MALB Creatinine Ratio 17.7 mg/g (0-30)
[2025-02-08 20:47] LABS: Platelet Estimate Adequate (Adequate); Schistocytes None Seen
[2025-02-08 20:59] LABS: Hemoglobin A1C 7.4 % (<5.7)
== END 2025-02-08 12:31 | disposition home or self-care (01) ==
LOC: ANHGOSHLAB 12:32
PROVIDERS: PCP Internal Medicine; Visit Provider Clinical Nurse Specialist
DX: R79.89 Other specified abnormal findings of blood chemistry (principal); E11.65 Type 2 diabetes mellitus with hyperglycemia; Z79.4 Long term (current) use of insulin; D72.829 Elevated white blood cell count, unspecified; D64.9 Anemia, unspecified; F41.9 Anxiety disorder, unspecified; J44.9 Chronic obstructive pulmonary disease, unspecified
CPT/HCPCS: 36415; 80048; 82043; 83036; 84439; 84443; 85025; 85055

== ENCOUNTER 2025-04-16 00:29 | Emergency (ER) | payer OTHER, SELFPAY ==
[2025-04-16] VITALS (7 sets, daily range): BP systolic 122–149; BP diastolic 56–78; PULSE 65–74; RESP 13–18; TEMP 37.1; O2SAT 96
--- NOTE | ~2025-04-16 | XR_ITS ---
EXAMINATION: XR foot RT min 3V DATE: 04/16/2025 01:17 INDICATION: Fall with right foot injury TECHNIQUE: Dorsoplantar, two oblique and lateral views of the right foot were obtained. COMPARISON: None. FINDINGS: Minimally displaced oblique fracture of the distal metaphyseal region of the right fibula. Alignment remains near-anatomic. No fracture in the right foot. No fracture. Mild osteoarthritis at a few of the interphalangeal joints. Achilles and plantar calcaneal spurs. Mild soft tissue swelling about the foot was performed dorsolaterally. IMPRESSION: 1. Minimally displaced oblique fracture of the distal metaphyseal region of the right fibula. Dr. Servin discussed these findings with Dr. Mar at 7:55 AM. Reviewed, dictated and finalized at location A.
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
--- NOTE | ~2025-04-16 | CT_ITS ---
EXAMINATION: CT brain wo con DATE: 04/16/2025 01:11 INDICATION: Status post fall. Trauma. TECHNIQUE: Computed tomography (CT) of the head was performed without intravenous contrast. The dose-length product was 605.33 mGy-cm. Automated exposure control and iterative reconstruction technique were employed. COMPARISON: CT dated 01/09/2025 FINDINGS: Generalized atrophy. Small chronic right lacunar infarction. There are scattered mild periventricular and subcortical white matter changes, most likely related to small vessel ischemic disease (microangiopathy). No ventriculomegaly or midline shift. Basilar cisterns are patent. There is intracranial atherosclerosis. No acute infarction, hemorrhage, mass or mass effect. Basilar cisterns are patent. IMPRESSION: 1. No acute intracranial abnormality. Reviewed, dictated and finalized at location O.
--- NOTE | 2025-04-16 00:36 | ECG_ITS ---
Test Date: 2025-04-16 00:48:44 Measurements Intervals [place] Rate: 69 P: 57 AK: 195 QRS: 1 QRSD: 104 T: 50 QT: 382 QTc: 411 Interpretive Statements SINUS RHYTHM INCOMPLETE RIGHT BUNDLE BRANCH BLOCK DELAYED PRECORDIAL R/S TRANSITION BORDERLINE ECG Compared to ECG 01/09/2025 16:35:36 No significant changes Electronically Signed On 04-16-2025 06:12:50 CDT by Lawson Augustin D.O.
[2025-04-16 01:06] LABS: Hematocrit 34.3 % (42.0-52.0); Hemoglobin 11.4 g/dL (14.0-18.0); Immature Granulocyte Percent A 0.6 % (0-0.5); Lymphocytes Absolute Auto 1.44 K/mm3 (0.9-3.2); Mean Corpuscular HGB Conc 33.2 g/dl (32-36); Mean Corpuscular Hemoglobin 30.3 pg (26-34); Mean Corpuscular Volume 91.2 fl (80-100); Nucleated Red Blood Cells Absolute Auto 0.000 K/mm3 (0.0-0.012); Nucleated Red Blood Cells Perc 0.0 % (0.0-0.2); Platelet Count Result 187 k/mm3 (150-375); Red Blood Count 3.76 M/mm3 (4.6-6.20); White Blood Count 11.9 K/mm3 (4.5-10.0)
[2025-04-16 01:20] LABS: Creatine Kinase 91 U/L (55-170); Magnesium 1.6 mg/dL (1.6-2.3)
[2025-04-16 01:24] LABS: Alanine Aminotransferase 37 U/L (6-50); Albumin Level 4.0 g/dL (3.5-5.1); Alkaline Phosphatase 47 U/L (38-126); Anion Gap 9 mmol/L (4-12); Aspartate Amino Transferase 46 U/L (17-59); Bilirubin,Total 1.0 mg/dL (0.2-1.3); Blood Urea Nitrogen 31 mg/dL (9-20); Calcium 9.3 mg/dL (8.4-10.2); Carbon Dioxide 22 mmol/L (22-30); Chloride 104 mmol/L (98-107); Estimated CRCL calculation 38 ml/min; Estimated Glomerular Filt Rate 44; Glucose 222 mg/dL (65-110); Potassium 4.4 mmol/L (3.4-5.0); Sodium 135 mmol/L (137-145); Total Protein 7.0 g/dL (6.3-8.2)
[2025-04-16 01:36] LABS: Troponin I < 0.012 ng/mL (0.000-0.034)
[2025-04-16 02:02] LABS: NT Pro B Type Natriuretic Pept 274 pg/mL (19.9-100)
--- NOTE | 2025-04-16 02:18 | ED.GENADULT ---
HPI - General Adult General Chief complaint: Syncope Stated complaint: MULTIPLE SYNCOPAL EPISODES/FALL Time Seen by Provider: 04/16/25 00:42 History of Present Illness HPI narrative: Patient is a 65-year-old male who presents emergency department this evening status post a syncopal episode. Patient states that he does have a history of episodes where he passes out/blacks out. Patient states that this has been going on for a while and admits that he has been worked up for this. He has been evaluated by Cardiology and has had a Holter monitor to rule out arrhythmia and he was told that his syncopal episodes are due to orthostatics and was provided with precautions and informed to be careful when he is getting up from seated position. He is currently denying any active symptoms including any chest pain, shortness of breath, any focal weakness, numbness and tingling, headaches or lightheadedness or dizziness. Patient states that he feels as though he pulled a muscle on his back when he fell and is also complaining of right foot pain. There are no additional modifying, alleviating, or precipitating factors at this time. Related Data Home Medications ?Medication ?Instructions ?Recorded ?Confirmed ?Last Taken ?Type lancets 26 gauge (TRUEplus Lancets) #100 ea 12/25/19 04/03/25 Unknown History pen needle, diabetic 31 gauge x #1,200 ea 12/25/19 04/03/25 Unknown History 5/16 (BD Ultra-Fine Short Pen Needle) propranolol 20 mg tablet 20 mg PO Q12H 12/25/19 04/03/25 Unknown History donepezil 5 mg tablet (Aricept) 5 mg PO QHS 09/21/24 04/03/25 Unknown History omega-3 fatty acids 1,000 mg 1,000 mg PO DAILY 09/21/24 04/03/25 Unknown History capsule sertraline 100 mg tablet 200 mg PO DAILY 09/21/24 04/03/25 Unknown History Allergies Allergy/AdvReac Type Severity Reaction Status Date / Time amoxicillin Allergy Unknown throat Verified 04/16/25 00:43 swelling Penicillins Allergy Unknown throat Verified 04/16/25 00:43 swelling Review of Systems Review of Systems: All systems are reviewed and are negative unless stated otherwise in the HPI. [facility] Past Medical History Medical History Type 2 diabetes mellitus with peripheral neuropathy Benign essential tremor Acquired hypothyroidism Left carpal tunnel syndrome Major depressive disorder, recurrent episode Type 2 diabetes mellitus with hyperglycemia, with long-term current use of insulin Memory loss COPD (chronic obstructive pulmonary disease) Anxiety Diabetes Benign positional vertigo Surgical History Surgical History History of right knee surgery History of surgery on right wrist History of hernia repair Family History Family History Father Family history of diabetes mellitus in first degree relative Alcoholism in family member Mother Diabetes mellitus Grandparent Diabetes mellitus Alcoholism in family member Social History Social History Social History: Caffeine Cola 4 bottles a day Smoking status: Never smoker Alcohol intake: never Substance use: current Substance use type: marijuana Do You Feel Safe in your Home?: Yes Lack of Transportation: No Lack of Food: Never True Current Housing: I Have Housing Concerned About Future Housing: No Difficulty Paying Gas/Electric Bills: YES Difficulty Paying for Meds: No Currently Unemployed: No Education: High School Diploma/GED Difficulty w/ Childcare or Family Care: No Living arrangements: with family Occupation/Education: retired Gender identity (if verbalized by the patient): Male Sexual Orientation (if Verbalized by the Patient): Straight or Heterosexual Spiritual care concerns: No Exam Narrative: General: Alert, awake, afebrile, in no acute distress. HEENT: PERRL, no rhinorrhea, no post nasal drip, oropharynx clear. Neck: Trachea midline, no JVD, no lymphadenopathy. Cardiovascular: Regular rate and rhythm, no murmurs, rubs or gallops, no peripheral edema. Respiratory: Clear to auscultation bilaterally, no tachypnea, no wheezing, no rhonchi, no rubs, no respiratory distress. Abdomen: Soft, nontender, nondistended, no rebound, no guarding, no peritoneal signs. Musculoskeletal: Swelling noted to the right mid foot with ecchymosis, no deformity noted, normal muscle tone. Skin: No rashes or petechia, no signs of infection. Psychiatric: Alert and oriented, normal behavior and judgment for situation. Neurological: Alert and oriented to person, place, and time. Follows all commands. No focal deficits, speech is clear and fluent. Course Vital Signs Vital signs: Vital Signs Temperature 98.7 F 04/16/25 00:37 Pulse Rate 74 04/16/25 00:37 Respiratory Rate 18 04/16/25 00:37 Blood Pressure 142/61 H 04/16/25 00:37 Pulse Oximetry 96 04/16/25 00:37 Oxygen Delivery Room Air 04/16/25 00:37 Temperature 98.7 F 04/16/25 00:37 Pulse Rate 66 04/16/25 02:25 Respiratory Rate 13 04/16/25 01:58 Blood Pressure 149/78 H 04/16/25 02:25 Pulse Oximetry 96 04/16/25 01:58 Oxygen Delivery Room Air 04/16/25 00:37 Medical Decision Making MDM Narrative Medical decision making narrative: The patient was evaluated by myself in the emergency department. History is obtained from patient who is an independent historian and physical exam was performed. External medical records were reviewed at this time. IV was established and pertinent tests were ordered. Patient was administered 15 mg of IV Toradol for foot pain and back strain. EKG was obtained which revealed sinus rhythm rate of 69 beats per minute. No ST changes, T wave inversions or evidence of acute ischemia. EKG was independently interpreted by me and is currently pending official cardiology read. Laboratory results obtained revealed a creatinine of 1.58 which is slightly higher than patient's baseline otherwise unremarkable. Troponin negative. Imaging studies obtained included CXR which was independently interpreted by me revealing no acute process, which is pending final radiology interpretation. CT brain without IV contrast was also obtained at this time and endplate interpreted by me revealing no acute intracranial process. Right foot x-ray was obtained due to swelling status post patient's fall from today revealing no acute fracture or dislocation, heel spur measuring approximately 7 mm. Differential diagnosis considerations include vasovagal episode, orthostatic hypotension, dehydration, acute viral syndrome, acute coronary syndrome. Comorbidities impacting this visit include history of orthostatic hypotension. I have evaluated and discussed social determinants of health with the patient that could potentially impact subsequent diagnosis and treatment plans. On repeat assessment of the patient, reevaluation revealed that the patient is doing well and is in no acute distress. Patient symptoms have improved since he arrived to our emergency department. Repeat vital signs were all reviewed and noted to be stable. Differential diagnosis and treatment plan were discussed with the patient at bedside. Patient agrees with discussion and after shared medical decision making agrees with discharge. All questions were answered to the patient's satisfaction. Patient will follow up with his PCP in 3-5 days. I did recommend obtaining outpatient echocardiogram and carotid ultrasound for further evaluation of his syncopal episodes. Patient was provided with strict return precautions and instructed to return to the emergency department if any new or worsening symptoms develop. The patient was discharged in stable condition. Vital Signs Vital Signs: Vital Signs Temperature 98.7 F 04/16/25 00:37 Pulse Rate 74 04/16/25 00:37 Respiratory Rate 18 04/16/25 00:37 Blood Pressure 142/61 H 04/16/25 00:37 Pulse Oximetry 96 04/16/25 00:37 Oxygen Delivery Room Air 04/16/25 00:37 Temperature 98.7 F 04/16/25 00:37 Pulse Rate 66 04/16/25 02:25 Respiratory Rate 13 04/16/25 01:58 Blood Pressure 149/78 H 04/16/25 02:25 Pulse Oximetry 96 04/16/25 01:58 Oxygen Delivery Room Air 04/16/25 00:37 Lab Data 04/16/25 00:51 04/16/25 00:51 Labs: Lab Results 04/16/25 04/16/25 Range/Units 00:51 00:53 WBC 11.9 H (4.5-10.0) K/mm3 RBC 3.76 L (4.6-6.20) M/mm3 Hgb 11.4 L (14.0-18.0) g/dL Hct 34.3 L (42.0-52.0) % MCV 91.2 (80-100) fl MCH 30.3 (26-34) pg MCHC 33.2 (32-36) g/dl RDW 13.2 (11.5-14.5) % Plt Count 187 (150-375) k/mm3 MPV 10.3 (7.4-10.4) fl Immature Gran % (Auto) 0.6 H (0-0.5) % Neut % (Auto) 78.9 H (45.5-73.1) % Lymph % (Auto) 12.1 L (18.3-44.2) % [place] % (Auto) 6.0 (2.6-8.5) % Eos % (Auto) 2.1 (0-4.4) % Baso % (Auto) 0.3 (0.2-1.2) % Lymph # (Auto) 1.44 (0.9-3.2) K/mm3 [place] # (Auto) 0.7 H (0.1-0.6) K/mm3 Eos # (Auto) 0.3 (0-0.3) K/mm3 Baso # (Auto) 0.0 (0.0-0.1) K/mm3 Abs Immat Gran (auto) 0.07 H (0.00-0.031) K/mm3 Absolute Neuts (auto) 9.4 H (1.3-6.7) K/mm3 Absolute Nucleated RBC 0.000 (0.0-0.012) K/mm3 Nucleated RBC % 0.0 (0.0-0.2) % Sodium 135 L (137-145) mmol/L Potassium 4.4 (3.4-5.0) mmol/L Chloride 104 (98-107) mmol/L Carbon Dioxide 22 (22-30) mmol/L Anion Gap 9 (4-12) mmol/L BUN 31 H D (9-20) mg/dL Creatinine 1.58 H (0.7-1.3) mg/dL Estim Creat Clear Calc 38 ml/min Estimated GFR 44 L (59 - ) Glucose 222 H (65-110) mg/dL Calcium 9.3 (8.4-10.2) mg/dL Magnesium 1.6 (1.6-2.3) mg/dL Total Bilirubin 1.0 (0.2-1.3) mg/dL AST 46 (17-59) U/L ALT 37 (6-50) U/L Alkaline Phosphatase 47 (38-126) U/L Total Creatine Kinase 91 (55-170) U/L Troponin I < 0.012 (0.000-0.034) ng/mL NT-Pro-B Natriuret Pep 274 H (19.9-100) pg/mL Total Protein 7.0 (6.3-8.2) g/dL Albumin 4.0 (3.5-5.1) g/dL Discharge Plan Discharge Clinical Impression: Syncope and collapse Patient Disposition: Home Condition: Improved Instructions: Antibiotic Form, Syncope (ED) Additional Instructions: Please follow-up with your family doctor within the next 3-5 days. Return emergency department if any new or worsening symptoms develop. I do recommend obtaining an outpatient echocardiogram and carotid ultrasound for further evaluation of these syncopal episodes. These can be scheduled outpatient by her primary care physician. Patient Language: Czech Prescriptions: No Action (DME) pen needle, diabetic [BD Ultra-Fine Short Pen Needle] 31 gauge x 5/16 needle See Rx Instructions .ROUTE .MEDSUPPLY Qty: 1,200 Rx Instructions: As directed propranolol 20 mg tablet 20 mg PO Q12H (DME) lancets [TRUEplus Lancets] 26 gauge misc See Rx Instructions .ROUTE .MEDSUPPLY Qty: 100 Rx Instructions: As directed insulin glargine [Basaglar KwikPen U-100 Insulin] 100 unit/mL (3 mL) insulin pen 20 unit SUB-Q DAILY Qty: 15 3RF (DME) Dexcom G6 Sensor Device See Rx Instructions .Route Qty: 3 0RF Rx Instructions: As directed (DME) Dexcom G6 Automation Controls Specialist Misc See Rx Instructions .Route Qty: 1 0RF Rx Instructions: As directed (DME) Dexcom G6 Transmitter Device See Rx Instructions .Route Qty: 1 0RF Rx Instructions: As directed atorvastatin 40 mg tablet 40 mg PO DAILY Qty: 90 3RF hydrocodone-acetaminophen 5-325 mg tablet 1 tablet PO Q8H PRN (Reason: pain) Qty: 10 0RF (DME) OneTouch Ultra Test Strip See Rx Instructions .Route Qty: 100 5RF Rx Instructions: Use to check bloodsugars TID (DME) BD Insulin Syringe U-500 1/2 mL 31 gauge x 15/64 syringe See Rx Instructions .ROUTE .MEDSUPPLY Qty: 200 1RF Rx Instructions: Use syringes twice daily (DME) insulin syringe-needle U-100 [BD Insulin Syringe Ultra-Fine] 0.5 mL 31 gauge x 5/16 syringe See Rx Instructions .ROUTE .MEDSUPPLY Qty: 400 1RF Rx Instructions: Use one syringe TID with insulin (DME) insulin syringe-needle U-100 [TRUEplus Insulin] 1 mL 31 gauge x 5/16 syringe See Rx Instructions .Route Qty: 100 0RF Rx Instructions: To inject insulin 4 times daily sertraline 100 mg tablet 200 mg PO DAILY donepezil [Aricept] 5 mg tablet 5 mg PO QHS omega-3 fatty acids 1,000 mg capsule 1,000 mg PO DAILY gabapentin 600 mg tablet 600 mg PO TID Qty: 270 1RF metformin 500 mg tablet extended release 24 hr 1,000 mg PO BID Qty: 360 1RF levothyroxine [Synthroid] 50 mcg tablet 50 mcg PO DAILY Qty: 30 3RF Humulin R Regular U-100 Insuln 100 unit/mL solution See Rx Instructions .ROUTE .COMPLEX Qty: 10 5RF Dose Instruction: INJECT 20 UNITS SUBCUTANEOUSLY TWICE DAILY Rx Instructions: INJECT 20 UNITS SUBCUTANEOUSLY TWICE DAILY lisinopril 2.5 mg tablet See Rx Instructions .ROUTE .COMPLEX Qty: 90 1RF Dose Instruction: Take 1 tablet by mouth once daily Rx Instructions: Take 1 tablet by mouth once daily fenofibrate 160 mg tablet 160 mg PO DAILY Qty: 90 1RF Follow-up/Referrals: Nazario Almodovar DO [Primary Care Provider, Internal Medicine] - 3 Days Time of Disposition: 02:35
[2025-04-16] MEDS: LIDOCAINE 5% PATCH 1 PATCH TRANSDERM (02:53)
[2025-04-16] MEDS: KETOROLAC 15 MG/ML VIAL (*BKC) IV PUSH (02:53)
== END 2025-04-16 03:00 | disposition home or self-care (01) ==
PROVIDERS: Emergency Provider Emergency Medicine; PCP Internal Medicine
DX: R55 Syncope and collapse (principal); S90.31XA Contusion of right foot, initial encounter; E11.42 Type 2 diabetes mellitus with diabetic polyneuropathy; E03.9 Hypothyroidism, unspecified; J44.9 Chronic obstructive pulmonary disease, unspecified; F33.9 Major depressive disorder, recurrent, unspecified; F41.9 Anxiety disorder, unspecified; Z79.4 Long term (current) use of insulin; Z79.899 Other long term (current) drug therapy; Z79.84 Long term (current) use of oral hypoglycemic drugs
CPT/HCPCS: 36415; 70450; 71045; 73630; 80053; 82550; 83735; 83880; 84484; 85025; 93005; 96374; 99284; A9270; J1885

== ENCOUNTER 2025-04-16 12:29 | Observation (INO) | payer OTHER, SELFPAY ==
--- NOTE | ~2025-04-16 | XR_ITS ---
EXAMINATION: XR ankle RT min 3V, 04/17/2025 11:55 CDT HISTORY: fracture COMPARISON: No comparisons available. Findings: Slightly displaced fracture of the distal fibula. Large calcaneal spur. Minimal Achilles enthesopathy Soft tissue swelling. Impression: Distal fibular fracture Reviewed, dictated and finalized at location A. Impression: Distal fibular fracture
--- NOTE | ~2025-04-16 | MR_ITS ---
EXAMINATION: MR lumbar spine wo con DATE: 04/17/2025 13:05 INDICATION: And compression fracture. Radiculopathy. TECHNIQUE: Magnetic resonance imaging (MRI) of the lumbar spine was performed without intravenous contrast. Sequences included sagittal T2-weighted FSE, sagittal T2-weighted FS FSE, sagittal T1-weighted FSE, and axial T2-weighted FSE. COMPARISON: CT studies dated 04/16/2025 and 01/26/2025 FINDINGS: Alignment is normal. Acute to subacute L1 burst fracture with 20% anterior to central vertebral body height loss, 3 mm retropulsion and prominent marrow edema throughout the vertebral body. The fracture occurred in the interval between the [address]. There are additional chronic compression fractures with 20% anterior vertebral body height loss at T11 and with central superior endplate depression with 20% central vertebral body height loss at L2, L3 and L4 all which have remained unchanged since 01/26/2025. Moderate disc height loss with annular fissure at L4-L5. Mild disc height loss with additional annular fissure at L5-S1. There is localized mild widening of the disc spaces secondary to the compression and burst fractures at T12-L1 through L3-L4. Additional annular fissures at L1-L2 through L3-L4. The conus medullaris terminates at L1. There is normal signal in the caudal spinal cord. Paravertebral soft tissues are unremarkable. The following disc levels are specifically discussed: T12-L1: The disc does not extend beyond the endplate margin. There is mild bilateral facet joint osteoarthritis. There is mild bilateral neural foraminal stenosis. There is mild central canal stenosis just below the level of the disc spaces resulting from the retropulsion of the superior posterior wall of the L1 vertebral body. L1-L2: Disc is bulging. There is mild bilateral facet joint osteoarthritis. There is moderate bilateral neural foraminal stenosis. There is mild central canal stenosis. L2-L3: Disc is bulging. There is mild left and moderate right facet joint osteoarthritis. There is moderate bilateral neural foraminal stenosis. There is mild central canal stenosis. L3-L4: Disc is bulging. There is moderate bilateral facet joint osteoarthritis. There is moderate bilateral neural foraminal stenosis. There is mild central canal stenosis. L4-L5: Disc is bulging. There is mild to moderate bilateral facet joint osteoarthritis. There is moderate left and moderate to severe right neural foraminal stenosis. There is mild central canal stenosis with more prominent moderate narrowing of the right lateral recess. L5-S1: Disc is bulging. There is mild to moderate bilateral facet joint osteoarthritis. There is mild right and moderate left neural foraminal stenosis. There is mild central canal stenosis. IMPRESSION: 1. Acute to subacute L1 burst fracture and chronic compression fractures at T11 and L2-L4. 2. Moderate lumbar spondylosis. Reviewed, dictated and finalized at location A.
--- NOTE | ~2025-04-16 | CT_ITS ---
EXAMINATION: CT lumbar spine wo con DATE: 04/16/2025 13:36 CDT INDICATION: Fall. Lower back pain TECHNIQUE: Computed tomography (CT) of the lumbar spine was performed without intravenous contrast. The dose-length product was 384.09 mGy-cm. COMPARISON: 02/09/2025 FINDINGS: There is a acute compression fracture of the L1 vertebral body with 25% vertebral body height loss of the superior endplate. The compression fracture is comminuted. Minimal posterior retropulsion of the posterior superior compression fracture of the L1 vertebral body causing mild narrowing of the spinal canal. Compression fracture of the superior endplate of the L2 vertebral body with 30% vertebral body height loss. No retropulsion of the fracture into the spinal canal. Acute compression fracture of L2 vertebral body which is mildly comminuted with 30% vertebral body height loss. No retropulsion of the fracture into the spinal canal. No other fracture identified. Grossly stable degenerative change at the L4-5 and L5-S1 levels. Bones appear osteopenic. Evaluation of the spinal canal contents and bilateral neuroforamen is limited due to CT technique. IMPRESSION: 1. There is a acute compression fracture of the superior endplate of the L1 vertebral body with 25% vertebral body height loss. The compression fracture is comminuted. Minimal posterior retropulsion of the posterior superior compression fracture of the L1 vertebral body causing mild narrowing of the spinal canal. 2.Compression fracture of the superior endplate of the L2 vertebral body with 30% vertebral body height loss. No retropulsion of the fracture into the spinal canal. The fracture is likely acute. Attention on follow-up MRI imaging of the lumbar spine. 3. Acute compression fracture of L2 vertebral body which is mildly comminuted with 30% vertebral body height loss. No retropulsion of the fracture into the spinal canal. 4. No other fracture identified. 5. Grossly stable degenerative change at the L4-5 and L5-S1 levels. Consider an MRI of the lumbar spine for further assessment. Reviewed, dictated and finalized at location Q. IMPRESSION: 1. There is a acute compression fracture of the superior endplate of the L1 onofre tebral body with 25% vertebral body height loss. The compression fracture is co mminuted. Minimal posterior retropulsion of the posterior superior compression fracture of the L1 vertebral body causing mild narrowing of the spinal canal. 2.Compression fracture of the superior endplate of the L2 vertebral body with 3 0% vertebral body height loss. No retropulsion of the fracture into the spinal canal. The fracture is likely acute. Attention on follow-up MRI imaging of the lumbar spine. 3. Acute compression fracture of L2 vertebral body which is mildly comminuted w ith 30% vertebral body height loss. No retropulsion of the fracture into the sp inal canal. 4. No other fracture identified. 5. Grossly stable degenerative change at the L4-5 and L5-S1 levels. Consider an MRI of the lumbar spine for further assessment.
[2025-04-16 12:30] VITALS: BP 101/58; PULSE 59; RESP 16; TEMP 36.4; O2SAT 100
--- OUTSIDE RECORDS SUMMARY | 2025-04-16 12:35 | XMS_ITS | Clinical Summary ---
Author Organization [facility] Address [address] [place] [id number] Care Team Providers Care Body Sander Name Role Phone Nazario Almodovar DO Primary Care Provider [phone] Allergies Active Allergy Reactions Criticality Noted Date Comments Amoxicillin Penicillins Swelling High 11/11/2021 Medications aspirin (ASPIR-81) 81 mg tablet take 1 tablet by oral route every day 0 0 09/19/19 16 Active Additional Information Patient not taking.Reported on 11/16/2023 metFORMIN (GLUCOPHAGE) 1,000 mg tablet take 1 tablet by oral route 2 times every day with morning and evening meals 0 0 09/19/19 16 Active fenofibrate (TRIGLIDE) 160 mg tablet take 1 tablet by oral route every day 0 0 09/19/19 16 Active insulin glargine (LANTUS) 100 unit/mL injection inject 88 U by subcutaneous route as per insulin protocol 0 vial 0 09/19/19 16 Active Additional Information Patient not taking.Reported on 03/28/2025 gabapentin (NEURONTIN) 600 mg tablet Take 1 tablet (600 mg total) by mouth 3 (three) times a day 11/12/19 24 Active sertraline (ZOLOFT) 100 mg tablet Take 1 tablet (100 mg total) by mouth daily Active atorvastatin (LIPITOR) 20 mg tablet Take 1 tablet (20 mg total) by mouth daily 10/08/19 22 Active meclizine (ANTIVERT) 25 mg tablet Take 1 tablet (25 mg total) by mouth Active donepeziL (ARICEPT) 5 mg tablet Take 1 tablet (5 mg total) by mouth nightly Active BASAGLAR 100 unit/mL (3 mL) pen for injection INJECT 100 UNITS SUBCUTANEOUSLY ONCE DAILY 02/24/20 24 Active TRUEplus Insulin 0.3 mL 31 gauge x 01/05 syringe 02/29/20 24 Active insulin syringe-needle U-100 1 mL 31 gauge x 516 syringe USE 1 SYRINGE THREE TIMES DAILY WITH INSULIN 05/12/20 20 Active HumuLIN R 100 unit/mL vial for injection INJECT 20 UNITS SUBCUTANEOUSLY TWICE DAILY DIRECTED Active albuterol HFA (PROVENTIL HFA,VENTOLIN HFA,PROAIR HFA) 90 mcg/actuation inhaler INHALE 2 PUFFS BY MOUTH EVERY 4 HOURS DIRECTED 10/09/19 22 Active primidone (MYSOLINE) 50 mg tabletIndicati ons:Essential tremor Take 2 tablets by mouth twice a day 120 tablet 3 03/07/20 24 Active lisinopriL (PRINIVIL,ZEST RIL) 2.5 mg tablet Take 1 tablet (2.5 mg total) by mouth daily Active levothyroxine (SYNTHROID) 50 mcg tablet Take 1 tablet (50 mcg total) by mouth 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 Differential includes Parkinson's, but tremor characteristics and family history support essential tremor diagnosis. - Increase propranolol to 60 mg extended release daily. - Consider reintroducing primidone if additional control needed. - Provide three-month medication supply with three refills. - Advise home monitoring of blood pressure, ensuring systolic BP >100 and heart rate ~60. - Schedule follow-up in six months or sooner if symptoms worsen. 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 Gender Identity Not on file Sexual Orientation Not on file Obstetrics History Last Filed Vital Signs Vital Sign Reading Time Taken Comments Blood Pressure 146/74 03/28/2025 9:31 AM CDT Pulse 68 03/28/2025 9:31 AM CDT Temperature - - Respiratory Rate 16 03/28/2025 9:31 AM CDT Oxygen Saturation 97% 03/07/2024 8:30 AM CDT Inhaled Oxygen Concentration - - Weight 68.9 kg (152 lb) 03/28/2025 9:31 AM CDT Height 165.1 cm (5' 5) 03/28/2025 9:31 AM CDT Body Mass Index 25.29 03/28/2025 9:31 AM CDT Plan of Treatment Health Maintenance Due Date Last Done Comments Colon Cancer Screening-Colonoscopy 1961 Depression Screening 1961 Hepatitis C Screening 1961 Prostate Cancer Screening-PSA 1961 DTaP/Tdap/Td Vaccine (1 - Tdap) 01/28/1972 Hepatitis B Screening 1979 Regular Well Visit/Exam 18-64 1979 Zoster Vaccine (1 of 2) 2011 Influenza Vaccine (#1) 2025 Pneumococcal vaccine <65 Aged Out No longer eligible based on patient's age to complete this topic Insurance [place] [address] Care Teams Body Sander Relationship Specialty Start Date End Date Nazario Almodovar DO PCP - General Internal Medicine 03/07/24
--- OUTSIDE RECORDS SUMMARY | 2025-04-16 13:27 | XMS_ITS | Clinical Summary ---
Author Organization [facility] Address [address] [place] [id number] Care Team Providers Care Treating Plant Pumper Name Role Phone Nazario Almodovar DO Primary Care Provider [phone]- [phone] Allergies Active Allergy Reactions Criticality Noted Date [...] 1 tablet (50 mcg total) by mouth drop forge operator before breakfast Active propranolol LA (INDERAL LA) [...] Care Team Description 04/02/2025 [facility]phone [facility] [place][note 2][address] [address] Stephanie Rothman MD 03/28/2025 9:30 AM CDT [facility] [address] [facility] [address] [address] Stephanie Rothman MD Essential tremor [...] on file 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
[2025-04-16] MEDS: oxyCODONE/ACETAMINOPHEN (*CRX) 5-325 MG TABLET 1 TABLET PO (13:29)
--- NOTE | 2025-04-16 14:43 | PCCCNOTE ---
Spoke to the pt and his family as requested by the provider for possible rehab. Pt stated he's been falling about 2x/month and unsure why. Pt does have [employer] insurance coverage which does not qualify for inpatient acute rehab. Stated he wants to go home but his biggest concerns is finding out why he's blacking out. Updated provider on his insurance resources for SNF or possible in home therapy.-rhonda
[2025-04-16 15:15] LABS: Hematocrit 37.9 % (42.0-52.0); Hemoglobin 12.3 g/dL (14.0-18.0); Immature Granulocyte Percent A 0.6 % (0-0.5); Lymphocytes Absolute Auto 1.38 K/mm3 (0.9-3.2); Mean Corpuscular HGB Conc 32.5 g/dl (32-36); Mean Corpuscular Hemoglobin 29.9 pg (26-34); Mean Corpuscular Volume 92.0 fl (80-100); Nucleated Red Blood Cells Absolute Auto 0.000 K/mm3 (0.0-0.012); Nucleated Red Blood Cells Perc 0.0 % (0.0-0.2); Platelet Count Result 213 k/mm3 (150-375); Red Blood Count 4.12 M/mm3 (4.6-6.20); White Blood Count 10.2 K/mm3 (4.5-10.0)
--- NOTE | 2025-04-16 15:19 | ED_ITS ---
HPI - Extremity Injury (Lower) General Chief Complaint: Extremity Injury, Lower Stated Complaint: R foot broken Time Seen by Provider: 04/16/25 13:02 History of Present Illness HPI Narrative: Patient was seen here last night for multiple episodes of syncope and fall recently, radiologist this morning called the to discuss missed ankle fracture, I called the patient and family who brought him back here, they tell me that he actually has more issues now with his back hurting. Occasionally some sharp electric-like pain going down his right leg. Related Data Home Medications ?Medication ?Instructions ?Recorded ?Confirmed ?Last Taken ?Type lancets 26 gauge (TRUEplus Lancets) #100 ea 12/25/19 0 04/03/25 Unknown History pen needle, diabetic 31 gauge x #1,200 ea 12/25/1908/16 Unknown History 01/05 (BD Ultra-Fine Short Pen Needle) propranolol 20 mg tablet 20 mg PO Q12H 12/25/1904/03 Unknown History donepezil 5 mg tablet (Aricept) 5 mg PO QHS 09/21/24 0 04/03/25 Unknown History omega-3 fatty acids 1,000 mg 1,000 mg PO DAILY 5 04/03/25 Unknown History capsule sertraline 100 mg tablet 200 mg PO DAILY 09/21/2408/16 Unknown History Allergies Allergy/AdvReac Type Severity Reaction Status Date / Time amoxicillin Allergy Unknown throat Verified 04/16/25 12:34 swelling Penicillins Allergy Unknown throat Verified 04/16/25 12:34 swelling Review of Systems 2 Review of Systems: All systems reviewed & are unremarkable except as noted in HPI and below PMFSH Past Medical History Medical History Type 2 diabetes mellitus with peripheral neuropathy Benign essential tremor Acquired hypothyroidism Left carpal tunnel syndrome Major depressive disorder, recurrent episode Type 2 diabetes mellitus with hyperglycemia, with long-term current use of insulin Memory loss COPD (chronic obstructive pulmonary disease) Anxiety Diabetes Benign positional vertigo Surgical History Surgical History History of right knee surgery History of surgery on right wrist History of hernia repair Family History Family History Father Family history of diabetes mellitus in first degree relative Alcoholism in family member Mother Diabetes mellitus Grandparent Diabetes mellitus Alcoholism in family member Social History Social History Social History: Caffeine Cola 4 bottles a day Smoking status: Never smoker Alcohol intake: never Substance use: current Substance use type: marijuana Do You Feel Safe in your Home?: Yes Lack of Transportation: No Lack of Food: Never True Current Housing: I Have Housing Concerned About Future Housing: No Difficulty Paying Gas/Electric Bills: YES Difficulty Paying for Meds: No Currently Unemployed: No Education: High School Diploma/GED Difficulty w/ Childcare or Family Care: No Living arrangements: with family Occupation/Education: retired Gender identity (if verbalized by the patient): Male Sexual Orientation (if Verbalized by the Patient): Straight or Heterosexual Spiritual care concerns: No Exam 2 Narrative: EXAMINATION OF ORGAN SYSTEMS/BODY AREAS: Constitutional: Vital signs per nursing GENERAL:[No acute distress, non-toxic appearing.] HEAD: Normal with no signs of head trauma. EYES: EOMI, conjunctiva normal ENT: Hearing grossly intact LUNGS: Nonlabored breathing. HEART: [Regular rate and rhythm] ABD: [Soft], [nontender to palpation] EXT: Normal range of motion; tenderness midline back lower back SKIN: Swelling and bruising right foot NEURO: [Alert and oriented x 3. No gross focal sensory or strength deficits.] PSYCH: Normal affect Course Vital Signs Vital signs: Vital Signs Temperature 97.6 F 04/16/25 12:30 Pulse Rate 59 L 04/16/25 12:30 Respiratory Rate 16 04/16/25 12:30 Blood Pressure 101/58 L 04/16/25 12:30 Pulse Oximetry 100 04/16/25 12:30 Oxygen Delivery Room Air 04/16/25 12:30 Temperature 97.6 F 04/16/25 12:30 Pulse Rate 59 L 04/16/25 12:30 Respiratory Rate 16 04/16/25 12:30 Blood Pressure 101/58 L 04/16/25 12:30 Pulse Oximetry 100 04/16/25 12:30 Oxygen Delivery Room Air 04/16/25 12:30 Procedures Orthopedic Splinting/Casting Injury #1: Splinting/Casting Date: 04/16/25 Splinting/Casting Time: 15:22 Side: right Lower Extremity Injury Location: ankle Lower Extremity Immobilizer: posterior splint Splint: customized in ED OCL: short leg Pre-Procedure Neuro Vascular Exam: normal Post-Procedure Neuro Vascular Exam: normal MDM - Extremity Injury (Lower) MDM Narrative Medical decision making narrative: Patient presents here with multiple recent falls and syncope, he has a right ankle fracture that was missed last night, he also reports a low back pain. He does have tenderness to the midline back, CT obtained does show unfortunately multiple compression fractures, possible spinal cord involvement however patient is neuro intact here, no weakness to his legs, no numbness. His right ankle is placed in splint. Call neurosurgeon to discuss the spine fractures, will obtain MRI am an order back brace. Discussed with patient and family, initially tried involving care coordination to see if he can go to rehab, unsuccessful, will admit him here for he will likely benefit from further workup regardless for the syncope episodes. Discussed with hospitalist. Lab Data 04/16/25 15:07 04/16/25 15:07 Labs: Lab Results 04/16/25 Range/Units 15:07 WBC Pending RBC Pending Hgb Pending Hct Pending MCV Pending MCH Pending MCHC Pending RDW Pending Plt Count Pending MPV Pending Immature Gran % (Auto) Pending Neut % (Auto) Pending Lymph % (Auto) Pending [place] % (Auto) Pending Eos % (Auto) Pending Baso % (Auto) Pending Lymph # (Auto) Pending [place] # (Auto) Pending Eos # (Auto) Pending Baso # (Auto) Pending Abs Immat Gran (auto) Pending Absolute Neuts (auto) Pending Absolute Nucleated RBC Pending Nucleated RBC % Pending Sodium Pending Potassium Pending Chloride Pending Carbon Dioxide Pending Anion Gap Pending BUN Pending Creatinine Pending Estim Creat Clear Calc Pending Estimated GFR Pending Glucose Pending Calcium Pending Discharge Plan Discharge Clinical Impression: Compression fracture of lumbar vertebra, Ankle fracture Patient Disposition: Still a Patient Condition: Stable Patient Language: Maori Prescriptions: No Action (DME) pen needle, diabetic [BD Ultra-Fine Short Pen Needle] 31 gauge x 5/16 needle See Rx Instructions .ROUTE .MEDSUPPLY Qty: 1,200 Rx Instructions: As directed propranolol 20 mg tablet 20 mg PO Q12H (DME) lancets [TRUEplus Lancets] 26 gauge misc See Rx Instructions .ROUTE .MEDSUPPLY Qty: 100 Rx Instructions: As directed insulin glargine [Basaglar KwikPen U-100 Insulin] 100 unit/mL (3 mL) insulin pen 20 unit SUB-Q DAILY Qty: 15 3RF (DME) Dexcom G6 Sensor Device See Rx Instructions .Route Qty: 3 0RF Rx Instructions: As directed (DME) Dexcom G6 Mold Designer Misc See Rx Instructions .Route Qty: 1 0RF Rx Instructions: As directed (DME) Dexcom G6 Transmitter Device See Rx Instructions .Route Qty: 1 0RF Rx Instructions: As directed atorvastatin 40 mg tablet 40 mg PO DAILY Qty: 90 3RF hydrocodone-acetaminophen 5-325 mg tablet 1 tablet PO Q8H PRN (Reason: pain) Qty: 10 [place] [place]Touch Ultra Test Strip See Rx Instructions .Route Qty: 100 5RF Rx Instructions: Use to check bloodsugars TID [place] [place] BD Insulin Syringe U-500 1/2 mL 31 gauge x 15/64 syringe See Rx Instructions .ROUTE .MEDSUPPLY Qty: 200 1RF Rx Instructions: Use syringes twice daily [place] [place] insulin syringe-needle U-100 [BD Insulin Syringe Ultra-Fine] 0.5 mL 31 gauge x 5/16 syringe See Rx Instructions .ROUTE .MEDSUPPLY Qty: 400 1RF Rx Instructions: Use one syringe TID with insulin [place] [place] insulin syringe-needle U-100 [TRUEplus Insulin] 1 mL 31 gauge x 5/16 syringe See Rx Instructions .Route Qty: 100 0RF Rx Instructions: To inject insulin 4 times daily sertraline 100 mg tablet 200 mg PO DAILY donepezil [Aricept] 5 mg tablet 5 mg PO QHS omega-3 fatty acids 1,000 mg capsule 1,000 mg PO DAILY gabapentin 600 mg tablet 600 mg PO TID Qty: 270 1RF metformin 500 mg tablet extended release 24 hr 1,000 mg PO BID Qty: 360 1RF levothyroxine [Synthroid] 50 mcg tablet 50 mcg PO DAILY Qty: 30 3RF Humulin R Regular U-100 Insuln 100 unit/mL solution See Rx Instructions .ROUTE .COMPLEX Qty: 10 5RF Dose Instruction: INJECT 20 UNITS SUBCUTANEOUSLY TWICE DAILY Rx Instructions: INJECT 20 UNITS SUBCUTANEOUSLY TWICE DAILY lisinopril 2.5 mg tablet See Rx Instructions .ROUTE .COMPLEX Qty: 90 1RF Dose Instruction: Take 1 tablet by mouth once daily Rx Instructions: Take 1 tablet by mouth once daily fenofibrate 160 mg tablet 160 mg PO DAILY Qty: 90 1RF Follow-up/Referrals: Nazario Almodovar, [Primary Care Provider, Internal Medicine]
[2025-04-16 15:31] LABS: Anion Gap 10 mmol/L (4-12); Blood Urea Nitrogen 27 mg/dL (9-20); Calcium 9.9 mg/dL (8.4-10.2); Carbon Dioxide 24 mmol/L (22-30); Chloride 103 mmol/L (98-107); Estimated CRCL calculation 53 ml/min; Estimated Glomerular Filt Rate 52; Glucose 162 mg/dL (65-110); Potassium 4.6 mmol/L (3.4-5.0); Sodium 137 mmol/L (137-145)
[2025-04-16 15:56] VITALS: BMI 34.7
--- NOTE | 2025-04-16 16:26 | PM.IMHP ---
H&P: HPI History of Present Illness Date/Time: 04/16/25 16:26 Chief Complaint: Back Pain, Foot Pain, Fall Narrative: 65 y/o M with PMH of benign essential tremor, hypothyroidism, depression, diabetes, COPD, and benign positional vertigo presents here with back pain and foot pain. The patient presents here from home for further evaluation of abnormal imaging. He was seen yesterday on 04/15 for multiple syncopal episodes and subsequent falls. Fall that occurred prior to evaluation resulted in bruising and swelling to his right foot and back pain. At that time the patient's trauma workup including a foot XR showed no acute findings. However imaging was reviewed in now revealed a minimally displaced oblique fracture of the distal metaphyseal region of the right fibula. He was called back to the ER for a brace. At that time he again reported the back pain which prompted further imaging which showed acute fractures of the lumbar spine. Per the patient, he has been having syncopal episodes for some time and they have been previously worked up. He follows with Cardiology and has had a Holter monitor in place to will out arrhythmias. His syncopal episodes are felt to be related to orthostatics and has since been instructed to change positions with care. Syncope is not accompanied by chest pain, shortness of breath, nausea, vomiting, diarrhea, or abdominal pain. At baseline the patient ambulates independently without an assistive device. Initial VS at presentation: 97.6? F, HR 59, R 16, 101/58, and 100% on RA. ED workup showed: WBC 10.2, hemoglobin 12.3, no significant electrolyte derangements, creatinine 1.37 and GFR 52, glucose 162. Lumbar CT showed acute compression fracture of the superior endplate of L1, compression fracture of the superior endplate of L2 with no other fractures identified and grossly stable degenerative changes at the L4-5 and L5-S1 levels. Review of Systems Review of Systems: All systems reviewed & are unremarkable except as noted in HPI and below [facility] Past Medical History Medical History (Updated 04/16/25 @ 17:07 by Ayleen Nieto APRN) Dyslipidemia Type 2 diabetes mellitus with peripheral neuropathy Benign essential tremor Acquired hypothyroidism Left carpal tunnel syndrome Major depressive disorder, recurrent episode Type 2 diabetes mellitus with hyperglycemia, with long-term current use of insulin Memory loss COPD (chronic obstructive pulmonary disease) Anxiety Benign positional vertigo Surgical History Surgical History History of right knee surgery History of surgery on right wrist History of hernia repair Family History Family History Father Family history of diabetes mellitus in first degree relative Alcoholism in family member Mother Diabetes mellitus Grandparent Diabetes mellitus Alcoholism in family member Social History Social History Social History: Caffeine Cola 4 bottles a day Smoking status: Former smoker Tobacco type: cigarettes Alcohol intake: never Substance use: never Substance use type: marijuana Do You Feel Safe in your Home?: Yes Lack of Transportation: No Lack of Food: Never True Current Housing: I Have Housing Concerned About Future Housing: No Difficulty Paying Gas/Electric Bills: YES Difficulty Paying for Meds: No Currently Unemployed: No Education: High School Diploma/GED Difficulty w/ Childcare or Family Care: No Living arrangements: with family Occupation/Education: retired Gender identity (if verbalized by the patient): Male Sexual Orientation (if Verbalized by the Patient): Straight or Heterosexual Spiritual care concerns: No Meds Home Medications and Allergies Home Medications ?Medication ?Instructions ?Recorded ?Confirmed ?Type lancets 26 gauge (TRUEplus Lancets) #100 ea 12/25/19 04/16/25 History pen needle, diabetic 31 gauge x #1,200 ea 12/25/19 04/16/25 History 5/16 (BD Ultra-Fine Short Pen Needle) propranolol 20 mg tablet 20 mg PO Q12H 12/25/19 04/16/25 History blood sugar diagnostic (OneTouch #100 ea 06/08/24 04/16/25 Rx Ultra Test strips) insulin U-500 syringe-needle 1/2 #200 ea 07/11/24 04/16/25 Rx mL 31 gauge x 15/64 (BD Insulin Syringe U-500) insulin syringe-needle U-100 0.5 #400 ea 07/11/24 04/16/25 Rx mL 31 gauge x 5/16 (BD Insulin Syringe Ultra-Fine) insulin syringe-needle U-100 1 mL #100 ea 07/14/24 04/16/25 Rx 31 gauge x 5/16 (TRUEplus Insulin) blood-glucose sensor ([employer] G6 #3 ea 09/11/24 04/16/25 Rx Sensor device) blood-glucose transmitter (Dexcom #1 ea 09/11/24 04/16/25 Rx G6 Transmitter device) blood-glucose,indirect sales representative,cont #1 ea 09/11/24 04/16/25 Rx (Dexcom G6 Financial Associate) donepezil 5 mg tablet (Aricept) 5 mg PO QHS 09/21/24 04/16/25 History omega-3 fatty acids 1,000 mg 1,000 mg PO DAILY 09/21/24 04/16/25 History capsule sertraline 100 mg tablet 200 mg PO QPM 09/21/24 04/16/25 History gabapentin 600 mg tablet 600 mg PO TID #270 tabs 10/04/24 04/16/25 Rx metformin 500 mg tablet,extended 1,000 mg (2 x 500 mg) PO BID #360 01/22/25 04/16/25 Rx release 24 hr tabs levothyroxine 50 mcg tablet 50 mcg PO DAILY #30 tabs 01/25/25 04/16/25 Rx (Synthroid) insulin regular human 100 unit/mL See Rx Instructions .Route 03/05/25 04/16/25 Rx injection solution (Humulin R .COMPLEX #10 mL Regular U-100 Insulin) lisinopril 2.5 mg tablet See Rx Instructions .Route 03/06/25 04/16/25 Rx .COMPLEX #90 tabs fenofibrate 160 mg tablet 160 mg PO DAILY #90 tabs 03/13/25 04/16/25 Rx atorvastatin 40 mg tablet 40 mg PO DAILY #90 tabs 04/03/25 04/16/25 Rx insulin glargine 100 unit/mL (3 20 unit subcut QPM 04/16/25 04/16/25 History mL) subcutaneous pen (Basaglar KwikPen U-100 Insulin) Allergies Allergy/AdvReac Type Severity Reaction Status Date / Time amoxicillin Allergy Unknown throat Verified 04/16/25 12:34 swelling Penicillins Allergy Unknown throat Verified 04/16/25 12:34 swelling Vital Signs Vital Signs - 24 hr 04/16/25 12:30 Temperature 97.6 F Pulse Rate 59 L Respiratory Rate 16 Blood Pressure 101/58 L Pulse Oximetry 100 Oxygen Delivery Room Air Exam Const: General: comfortable and no acute distress Other: , male, nontoxic appearance HENMT: Face/Nose/Sinus: Normal nares present Mouth: Yes moist mucous membranes Eyes: General: appearance normal, both eyes and all related structures Sclera: sclerae normal Pupils: Equal, round and reactive pupils present EOM: EOMs intact bilaterally Resp: Effort & Inspection: normal respiratory effort Auscultation: clear to auscultation bilaterally Cardio: Rate: regular rate Rhythm: regular rhythm Other: S1-S2 present without murmur, rub, ectopy GI: Other: Abdomen soft, nondistended, nontender. Normoactive bowel sounds in all quadrants. Back/Spine/Pelvis: Thoracic/Lumbar Spine: thoracic spinal tenderness (Worsens with movement) Skin: General skin exam: normal color and no rashes or lesions noted Wounds: no wounds Neuro: Speech: normal speech Motor exam (neuro): 5/5 motor strength present throughout Sensory Exam: normal sensation Other: A&O x4 Extrem: Other: Brace in place to right foot. Cap refill brisk. Denies numbness. Psych: Mental Status: mental status grossly normal Affect: normal affect Other: Good insight and judgment, pleasant H&P: Results Labs Labs: Short CBC 04/16/25 Range/Units 15:07 WBC 10.2 H (4.5-10.0) K/mm3 Hgb 12.3 L (14.0-18.0) g/dL Hct 37.9 L (42.0-52.0) % Plt Count 213 (150-375) k/mm3 BMP 04/16/25 15:07 Sodium 137 Potassium 4.6 Chloride 103 Carbon Dioxide 24 BUN 27 H Creatinine 1.37 H Glucose 162 H Calcium 9.9 Assessment and Plan Assessment and plan (1) Closed right fibular fracture: Qualifiers: Encounter type: subsequent encounter Fibula location: distal Fracture healing: with routine healing Fracture morphology: other fracture Qualified Code(s): S82.831D - Other fracture of upper and lower end of right fibula, subsequent encounter for closed fracture with routine healing Code(s): S82.401A - Unspecified fracture of shaft of right fibula, initial encounter for closed fracture Status: Acute Assessment and Plan: - Foot XR, R, 04/16: Minimally displaced oblique fracture of the distal metaphyseal region of the right fibula. - splint applied to the RLE in the ED on 04/16 - will need ortho follow-up outpatient, consulted inpatient - analgesics prn - PT/OT and care coordination for placement as the patient has concurrent L-Spine fractures (2) Compression fracture of lumbar vertebra: Qualifiers: Encounter type: subsequent encounter Fracture healing: with routine healing Lumbar vertebra fracture level: L2 Qualified Code(s): S32.020D - Wedge compression fracture of second lumbar vertebra, subsequent encounter for fracture with routine healing Code(s): S32.000A - Wedge compression fracture of unspecified lumbar vertebra, initial encounter for closed fracture Status: Acute Assessment and Plan: - L-Spine CT, 04/16: 1. There is a acute compression fracture of the superior endplate of the L1 vertebral body with 25% vertebral body height loss. The compression fracture is comminuted. Minimal posterior retropulsion of the posterior superior compression fracture of the L1 vertebral body causing mild narrowing of the spinal canal. 2.Compression fracture of the superior endplate of the L2 vertebral body with 30% vertebral body height loss. No retropulsion of the fracture into the spinal canal. The fracture is likely acute. Attention on follow-up MRI imaging of the lumbar spine. 3. Acute compression fracture of L2 vertebral body which is mildly comminuted with 30% vertebral body height loss. No retropulsion of the fracture into the spinal canal. 4. No other fracture identified. 5. Grossly stable degenerative change at the L4-5 and L5-S1 levels - TLSO brace placed - neurosurgery consulted - MRI L Spine - analgesics prn (3) Syncope and collapse: Code(s): R55 - Syncope and collapse Status: Chronic Assessment and Plan: - ongoing history of syncope with most recent episode yesterday, 04/15, resulting in a fall - previous cardiac workup outpatient was unremarkable per patient - attributed to orthostatics, continue to encourage patient to change positions slowly and with care. monitor BP. - fall precautions (4) Type 2 diabetes mellitus with peripheral neuropathy: Code(s): E11.42 - Type 2 diabetes mellitus with diabetic polyneuropathy Status: Chronic Assessment and Plan: - hypoglycemia protocol - POC blood glucose ACHS - home medication: Continue Glargine 20 units q.p.m., regular insulin 20 units b.i.d. Hold Metformin in case of need for contrast. - correct regimen ordered - high dose TIDWM, based off BMI - A1C 7.4% on 02/08/2025 (5) COPD (chronic obstructive pulmonary disease): Qualifiers: COPD type: unspecified COPD Qualified Code(s): J44.9 - Chronic obstructive pulmonary disease, unspecified Code(s): J44.9 - Chronic obstructive pulmonary disease, unspecified Status: Chronic Assessment and Plan: - no current evidence of exacerbation - continue home medications Plan Diet: Diabetic GI Prophylaxis: N/a DVT Prophylaxis: Lovenox IV fluids: 1L bolus in ED Lines/Tubes: Peripheral IV Code Status: Full code Quality VTE Prophylaxis VTE prophylaxis: pharmacologic ordered Hospitalist [facility] Advance Care Plan I have confirmed that the patient's Advanced Care Plan is present, code status is documented, or surrogate decision maker is listed in patient medical record.: Yes Medication Reconciliation I have utilized all available resources to obtain, update and review the patients current medications (includes all prescriptions, OTC, herbals, cannabis, and nutritional supplements).: Yes
--- NOTE | 2025-04-16 16:34 | ADMGEN ---
This patient, Smooth Ace, was admitted to 2 Medical Room 260-. Patient/family oriented to hospital policies and general routines including ID bracelet, bed and alarms, visiting hours, pain management, procedures, bathroom and other care routines, personal items, smoking policy, room service/diet, and visiting hours. Information on how to activate the Rapid Response Team has been discussed. Patient/Family are encouraged to report perceived risks to care and to ask questions if they do not understand what they are told or what they should do.
[2025-04-16] MEDS: SERTRALINE HCL 50 MG TABLET 200 MG PO (18:08)
[2025-04-16] MEDS: INSULIN HUMAN REGULAR (*BKC) 100 UNITS/ML 20 UNITS SUB-Q (18:08)
[2025-04-16] MEDS: LACTATED RINGERS 1,000 ML 999 ML IV CONT (18:08)
--- NOTE | 2025-04-16 19:44 | WPDNEUROSGCN ---
Assessment and Plan Assessment and plan (1) Compression fracture of lumbar vertebra: Qualifiers: Encounter type: subsequent encounter Fracture healing: with routine healing Lumbar vertebra fracture level: L2 Qualified Code(s): S32.020D - Wedge compression fracture of second lumbar vertebra, subsequent encounter for fracture with routine healing Code(s): S32.000A - Wedge compression fracture of unspecified lumbar vertebra, initial encounter for closed fracture Status: Acute Assessment and Plan: Assessment: Acute L1 superior endplate compression fracture with 20-25% height loss and approximately 4 mm retropulsion into the spinal canal resulting in mild spinal canal stenosis. There are chronic compression fractures of L2, L3, and L4 which are grossly unchanged from patient's 01/26/2025 CT scan. - Obtain MRI lumbar spine - LSO brace to be worn at all times when out of bed - no bending, twisting, lifting >5-10 lb - syncopal workup per Medicine Service - outpatient follow-up in 6 weeks - bone health optimization with PCP Discussed with Dr. Garcia, who is in agreement Consult date: 04/16/25 HPI: Smooth Ace is a 65 year old male Who presented to the emergency room last night after a fall/ syncopal episode with complaints of back pain and right foot pain. The patient underwent workup and was not found to have any significant injuries and was sent home. Upon radiologist re-review today, it was discovered that there was a missed right ankle fracture and the patient was instructed to come back to the emergency room. When he re-presented, he was complaining of increasing back pain with some sharp shooting pain down the right leg. Additional workup including a CT scan of the lumbar spine demonstrated an acute L1 superior endplate compression fracture with mild retropulsion and chronic L2, L3, and L4 fractures for which Neurosurgery has been consulted. Currently, the patient endorses low back pain that radiates anteriorly into his bilateral low abdomen and pelvis. He denies any pain that shoots down the legs, lower extremity numbness or weakness, or saddle anesthesia. He has had bowel urgency and loose stools that has bordered on incontinence and has been wearing an incontinence brief for awhile. This predates his most recent fall. He denies any bladder incontinence. 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 I reviewed the CT scan of the lumbar spine obtained today. There is a new acute L1 superior endplate compression fracture with 20-25% height loss and 4mm of retropulsion into the spinal canal resulting in mild spinal canal stenosis. There are chronic compression fractures of L2, L3, and L4, grossly unchanged since patient's thoracic and lumbar CT from 01/26/2025. There is degenerative disc disease and lumbar spondylosis present throughout the distal lumbar spine with a disc osteophyte complex at L4-L5 resulting in at least moderate spinal canal stenosis. [facility]LY [facility] Past Medical History Medical History (Updated 04/16/25 @ 17:07 by Ayleen Nieto APRN) Dyslipidemia Type 2 diabetes mellitus with peripheral neuropathy Benign essential tremor Acquired hypothyroidism Left carpal tunnel syndrome Major depressive disorder, recurrent episode Type 2 diabetes mellitus with hyperglycemia, with long-term current use of insulin Memory loss COPD (chronic obstructive pulmonary disease) Anxiety Benign positional vertigo Surgical History Surgical History History of right knee surgery History of surgery on right wrist History of hernia repair Family History Family History Father Family history of diabetes mellitus in first degree relative Alcoholism in family member Mother Diabetes mellitus Grandparent Diabetes mellitus Alcoholism in family member Social History Social History Social History: Caffeine Cola 4 bottles a day Smoking status: Former smoker Tobacco type: cigarettes Alcohol intake: never Substance use: never Substance use type: marijuana Do You Feel Safe in your Home?: Yes Lack of Transportation: No Lack of Food: Never True Current Housing: I Have Housing Concerned About Future Housing: No Difficulty Paying Gas/Electric Bills: YES Difficulty Paying for Meds: No Currently Unemployed: No Education: High School Diploma/GED Difficulty w/ Childcare or Family Care: No Living arrangements: with family Occupation/Education: retired Gender identity (if verbalized by the patient): Male Sexual Orientation (if Verbalized by the Patient): Straight or Heterosexual Spiritual care concerns: No Meds Home Medications and Allergies Home Medications ?Medication ?Instructions ?Recorded ?Confirmed ?Type lancets 26 gauge (TRUEplus Lancets) #100 ea 12/25/19 04/16/25 History pen needle, diabetic 31 gauge x #1,200 ea 12/25/19 04/16/25 History 5/16 (BD Ultra-Fine Short Pen Needle) propranolol 20 mg tablet 20 mg PO Q12H 12/25/19 04/16/25 History blood sugar diagnostic (OneTouch #100 ea 06/08/24 04/16/25 Rx Ultra Test strips) insulin U-500 syringe-needle 1/2 #200 ea 07/11/24 04/16/25 Rx mL 31 gauge x 15/64 (BD Insulin Syringe U-500) insulin syringe-needle U-100 0.5 #400 ea 07/11/24 04/16/25 Rx mL 31 gauge x 5/16 (BD Insulin Syringe Ultra-Fine) insulin syringe-needle U-100 1 mL #100 ea 07/14/24 04/16/25 Rx 31 gauge x 5/16 (TRUEplus Insulin) blood-glucose sensor (Dexcom G6 #3 ea 09/11/24 04/16/25 Rx Sensor device) blood-glucose transmitter (Dexcom #1 ea 09/11/24 04/16/25 Rx G6 Transmitter device) blood-glucose,bulk filler,cont #1 ea 09/11/24 04/16/25 Rx (Dexcom G6 Acute Care Physical Therapist) donepezil 5 mg tablet (Aricept) 5 mg PO QHS 09/21/24 04/16/25 History omega-3 fatty acids 1,000 mg 1,000 mg PO DAILY 09/21/24 04/16/25 History capsule sertraline 100 mg tablet 200 mg PO QPM 09/21/24 04/16/25 History gabapentin 600 mg tablet 600 mg PO TID #270 tabs 10/04/24 04/16/25 Rx metformin 500 mg tablet,extended 1,000 mg (2 x 500 mg) PO BID #360 01/22/25 04/16/25 Rx release 24 hr tabs levothyroxine 50 mcg tablet 50 mcg PO DAILY #30 tabs 01/25/25 04/16/25 Rx (Synthroid) insulin regular human 100 unit/mL See Rx Instructions .Route 03/05/25 04/16/25 Rx injection solution (Humulin R .COMPLEX #10 mL Regular U-100 Insulin) lisinopril 2.5 mg tablet See Rx Instructions .Route 03/06/25 04/16/25 Rx .COMPLEX #90 tabs fenofibrate 160 mg tablet 160 mg PO DAILY #90 tabs 03/13/25 04/16/25 Rx atorvastatin 40 mg tablet 40 mg PO DAILY #90 tabs 04/03/25 04/16/25 Rx insulin glargine 100 unit/mL (3 20 unit subcut QPM 04/16/25 04/16/25 History mL) subcutaneous pen (Basaglar KwikPen U-100 Insulin) Allergies Allergy/AdvReac Type Severity Reaction Status Date / Time amoxicillin Allergy Unknown throat Verified 04/16/25 12:34 swelling Penicillins Allergy Unknown throat Verified 04/16/25 12:34 swelling Vital Signs Vital Signs - 24 hr 04/16/25 12:30 04/16/25 15:56 Temperature 97.6 F Pulse Rate 59 L Respiratory Rate 16 Blood Pressure 101/58 L Pulse Oximetry 100 Oxygen Delivery Room Air Room Air Exam Narrative: Patient is seated comfortably in his wheelchair with a splint on his right foot and ankle. He is calm, cooperative, and in no acute distress. A&O x3. PERRLA. EOM intact. Facial movements symmetric. Tongue protrudes at the midline. Symmetric shoulder shrug. No drift. Speech is clear and fluent. Tender to palpation over the thoracolumbar junction. No other significant tenderness. Motor strength 5/5 BLE, right foot / ankle not tested secondary to fracture and splint. Sensation to light touch intact. 1+ DTRs. No ankle clonus. Downgoing Babinski. Gait and balance not tested secondary to fracture. Results Labs 04/16/25 15:07 04/16/25 15:07 Labs: Short CBC 04/16/25 Range/Units 15:07 WBC 10.2 H (4.5-10.0) K/mm3 Hgb 12.3 L (14.0-18.0) g/dL Hct 37.9 L (42.0-52.0) % Plt Count 213 (150-375) k/mm3 BMP 04/16/25 15:07 Sodium 137 Potassium 4.6 Chloride 103 Carbon Dioxide 24 BUN 27 H Creatinine 1.37 H Glucose 162 H Calcium 9.9
[2025-04-16 20:54] VITALS: BP 112/63; PULSE 68; RESP 20; TEMP 36.5; O2SAT 98
[2025-04-16 20:58] VITALS: PULSE 68
[2025-04-16] MEDS: DONEPEZIL HCL 5 MG TABLET PO (20:58)
[2025-04-16] MEDS: PROPRANOLOL HCL 20 MG TABLET PO (20:58)
[2025-04-16] MEDS: INSULIN GLARGINE (*BKC) 100 UNITS/ML 20 UNITS SUB-Q (20:59)
[2025-04-16] MEDS: GABAPENTIN 300 MG CAPSULE 600 MG PO (21:00)
[2025-04-17] VITALS (9 sets, daily range): BP systolic 114–133; BP diastolic 68–70; PULSE 62–98; RESP 18–19; TEMP 36.4–37; O2SAT 97–100
[2025-04-17 04:55] LABS: Hematocrit 34.9 % (42.0-52.0); Hemoglobin 11.6 g/dL (14.0-18.0); Immature Granulocyte Percent A 0.5 % (0-0.5); Lymphocytes Absolute Auto 1.73 K/mm3 (0.9-3.2); Mean Corpuscular HGB Conc 33.2 g/dl (32-36); Mean Corpuscular Hemoglobin 30.2 pg (26-34); Mean Corpuscular Volume 90.9 fl (80-100); Nucleated Red Blood Cells Absolute Auto 0.000 K/mm3 (0.0-0.012); Nucleated Red Blood Cells Perc 0.0 % (0.0-0.2); Platelet Count Result 186 k/mm3 (150-375); Red Blood Count 3.84 M/mm3 (4.6-6.20); White Blood Count 9.4 K/mm3 (4.5-10.0)
[2025-04-17] MEDS: GABAPENTIN 300 MG CAPSULE 600 MG PO ×3 (05:04→22:05)
[2025-04-17] MEDS: HYDROcodone/acetaminophen (*CRX) 5-325 MG TABLET 1 TAB PO ×2 (05:04→13:20)
[2025-04-17 05:34] LABS: Anion Gap 7 mmol/L (4-12); Blood Urea Nitrogen 20 mg/dL (9-20); Calcium 9.1 mg/dL (8.4-10.2); Carbon Dioxide 25 mmol/L (22-30); Chloride 103 mmol/L (98-107); Estimated CRCL calculation 66 ml/min; Estimated Glomerular Filt Rate > 60; Glucose 123 mg/dL (65-110); Potassium 4.1 mmol/L (3.4-5.0); Sodium 135 mmol/L (137-145)
[2025-04-17] MEDS: INSULIN HUMAN REGULAR (*BKC) 100 UNITS/ML 20 UNITS SUB-Q (08:20)
[2025-04-17] MEDS: MORPHINE SULFATE (*CRX) 2 MG/ML INJ IV PUSH ×3 (08:36→21:47)
[2025-04-17] MEDS: PROPRANOLOL HCL 20 MG TABLET PO ×2 (08:38→21:54)
[2025-04-17] MEDS: ENOXAPARIN 40 MG/0.4 ML SYRINGE SUB-Q (08:38)
--- NOTE | 2025-04-17 08:38 | P.PNIM_ITS ---
Progress Note: A&P Assessment and Plan (1) Syncope and collapse: Code(s): R55 - Syncope and collapse Status: Chronic Assessment and Plan: Ongoing history of syncope with most recent episode yesterday, 04/15, resulting in a fall. States syncope has become more frequent. States previous cardiac workup outpatient several years ago was unremarkable. Per patient this was performed at [facility] however unable to find prior workup on chart review besides a holter monitor in 01/2024. Holter monitor showing occasional PVC otherwise unremarkable. - EKG sinus rhythm with HR 69 - orthostatic vital signs ordered - head ct unremarkable - echo ordered - tele ordered - fall precautions (2) Closed right fibular fracture: Qualifiers: Encounter type: subsequent encounter Fibula location: distal Fracture healing: with routine healing Fracture morphology: other fracture Qualified Code(s): S82.831D - Other fracture of upper and lower end of right fibula, subsequent encounter for closed fracture with routine healing Code(s): S82.401A - Unspecified fracture of shaft of right fibula, initial encounter for closed fracture Status: Acute Assessment and Plan: - Foot XR, R, 04/16: Minimally displaced oblique fracture of the distal metaphyseal region of the right fibula. - splint applied to the RLE in the ED on 04/16 - analgesics prn - PT/OT and care coordination for placement as the patient has concurrent L- Spine fractures - ortho consulted (3) Compression fracture of lumbar vertebra: Qualifiers: Encounter type: subsequent encounter Fracture healing: with routine healing Lumbar vertebra fracture level: L2 Qualified Code(s): S32.020D - Wedge compression fracture of second lumbar vertebra, subsequent encounter for fracture with routine healing Code(s): S32.000A - Wedge compression fracture of unspecified lumbar vertebra, initial encounter for closed fracture Status: Acute Assessment and Plan: - L-Spine CT, 04/16: 1. There is a acute compression fracture of the superior endplate of the L1 vertebral body with 25% vertebral body height loss. The compression fracture is comminuted. Minimal posterior retropulsion of the posterior superior compression fracture of the L1 vertebral body causing mild narrowing of the spinal canal. 2.Compression fracture of the superior endplate of the L2 vertebral body with 30% vertebral body height loss. No retropulsion of the fracture into the spinal canal. The fracture is likely acute. Attention on follow-up MRI imaging of the lumbar spine. 3. Acute compression fracture of L2 vertebral body which is mildly comminuted with 30% vertebral body height loss. No retropulsion of the fracture into the spinal canal. 4. No other fracture identified. 5. Grossly stable degenerative change at the L4-5 and L5-S1 levels - TLSO brace placed, to be worn at all times when out of bed. - MRI L Spine - analgesics prn - neurosurgery consulted no bending, twisting, lifting >5-10 lb outpatient follow-up in 6 weeks bone health optimization with PCP (4) Clavicle fracture: Qualifiers: Clavicle location: unspecified part of clavicle Encounter type: initial encounter Fracture alignment: displaced Fracture type: closed Laterality: right Qualified Code(s): S42.001A - Fracture of unspecified part of right clavicle, initial encounter for closed fracture Code(s): S42.009A - Fracture of unspecified part of unspecified clavicle, initial encounter for closed fracture Status: Inactive Assessment and Plan: Chest XR: Still ununited mildly displaced fracture of the lateral right clavicle is increasing sclerosis along the fracture plane suggesting progression towards nonunion. Chronic, previously seen on 01/26/2025 shoulder xr (5) Type 2 diabetes mellitus with peripheral neuropathy: Code(s): E11.42 - Type 2 diabetes mellitus with diabetic polyneuropathy Status: Chronic Assessment and Plan: - hypoglycemia protocol - POC blood glucose ACHS - home medication: Glargine 20 units q.p.m., regular insulin 20 units b.i.d. Hold Metformin in case of need for contrast. - correct regimen ordered - Continue Glargine 20 units q.p.m., regular insulin 20 units b.i.d., started on high dose TIDWM, based off BMI - A1C 7.4% on 02/08/2025 Glucose well controlled. Continue to monitor. (6) COPD (chronic obstructive pulmonary disease): Qualifiers: COPD type: unspecified COPD Qualified Code(s): J44.9 - Chronic obstructive pulmonary disease, unspecified Code(s): J44.9 - Chronic obstructive pulmonary disease, unspecified Status: Chronic Assessment and Plan: - no current evidence of exacerbation - continue home medications Time Spent With Patient Time with patient: 25 - 35 minutes Subjective Date/time seen: 04/17/25 08:38 Interval history: 65 y/o M with PMH of benign essential tremor, hypothyroidism, depression, diabetes, COPD, and benign positional vertigo presents to the hospital following a syncopal episode resulting in multiple falls leading to back pain and foot pain. Patient pleasant lying comfortably in bed. He continues to endorse back pain when lying in bed. Waiting on TLSO brace, per RN will be delivered this afternoon. Patient denies any tingling/numbness/shooting pain to the lower extremity. Patient stats that pain is currently well controlled. Patient notes that his syncope has been increasing in frequency. States previous cardiac workup outpatient several years ago was unremarkable. Per patient this was performed at [facility] however unable to find prior workup on chart review besides a holter monitor in 01/2024. Holter monitor showing occasional PVC otherwise unremarkable. Patient does note that the syncope occurs not long after changing positions, orthostatic vital signs ordered. He has no other complaints denying chest pain, palpitations, nausea/vomiting, shortness of breath and abdominal pain. Review of Systems Review of Systems: All systems reviewed & are unremarkable except as noted in HPI and below Exam Narrative: AF HR 65 RR 18 SpO2 100 BP 133/69 General: male in no acute respiratory distress who is nontoxic appearing, lying semi recumbent in bed. HEENT: Normocephalic. Atraumatic. Extraocular movement intact. Sclera clear and anicteric. No facial asymmetry. Chest: Lungs are clear to auscultation bilaterally. No wheezes or crackles. CV: Heart was regular rate and rhythm. S1/S2. No murmurs, gallops, or rubs. Abd: Abdomen was soft. Nontender. Nondistended. Positive bowel sounds. Ext: No clubbing, cyanosis, or edema. DP pulses bilaterally. Neuro: Patient is alert and oriented x3. Strength is 5/5 in both upper and lower extremities. Speech is clear. Objective Data Vital Signs Vital Signs: Vital Signs - 24 hr 04/16/25 12:30 04/16/25 15:56 04/16/25 20:00 Temperature 97.6 F Pulse Rate 59 L Respiratory Rate 16 Blood Pressure 101/58 L Pulse Oximetry 100 Oxygen Delivery Room Air Room Air Room Air 04/16/25 20:54 04/16/25 20:58 04/17/25 04:55 Temperature 97.7 F 97.8 F Pulse Rate 68 68 65 Respiratory Rate 20 18 Blood Pressure 112/63 133/69 Pulse Oximetry 98 100 Oxygen Delivery Intake/Output Intake/Output: Intake & Output 04/14/25 04/15/25 04/16/25 04/17/25 23:59 23:59 23:59 23:59 Intake Total 360 290 Output Total 575 Balance 360 -285 Meds/Results Medications: Active Medications Generic Name Dose Route Start Last Admin Trade Name Freq PRN Reason Stop Dose Admin Acetaminophen 650 mg 04/16/25 17:07 Acetaminophen 325 Mg Tablet PO Q6H PRN Mild Pain (1-3) or Fever Hydrocodone Bitart/Acetaminophen 1 tab 04/16/25 17:07 04/17/25 05:04 Hydrocodone/Acetaminophen (*Crx) 5-325 Mg Tablet PO 1 tab Q6H PRN Administration Pain Rated 4-6 Atorvastatin Calcium 40 mg 04/17/25 09:00 Atorvastatin 40 Mg Tablet PO DAILY SPENCER Dextrose 12.5 gm 04/16/25 17:07 Dextrose 50% 25 Gm/50 Ml Syringe IV PUSH PRN PRN Hypoglycemia Protocol Docusate Sodium 100 mg 04/16/25 17:07 Docusate Sodium 100 Mg Capsule PO Q12H PRN Constipation Donepezil HCl 5 mg 04/16/25 21:00 04/16/25 20:58 Donepezil Hcl 5 Mg Tablet PO 5 mg QHS SPENCER Administration Enoxaparin Sodium 40 mg 04/17/25 09:00 Enoxaparin 40 Mg/0.4 Ml Syringe SUB-Q DAILY SPENCER Fenofibrate 145 mg 04/17/25 09:00 Fenofibrate Nanocrystallized 145 Mg Tablet PO QAM SPENCER Fish Oil 1 gm 04/17/25 09:00 [place] 3 Polyunsat Fatty Acids 1 Gm Cap PO DAILY SPENCER Gabapentin 600 mg 04/16/25 22:00 04/17/25 05:04 Gabapentin 300 Mg Capsule PO 600 mg Q8HR SPENCER Administration Glucagon 1 mg 04/16/25 17:07 Glucagon For Inj 1 Mg Vial IM PRN PRN Hypoglycemia Protocol Glucose 15 gm 04/16/25 17:07 Glucose Oral Gel 15 Gm Of Glucse In 37.5 Gm Tube PO PRN PRN Hypoglycemia Protocol Dextrose 1,000 mls @ 100 mls/hr 04/16/25 17:07 Dextrose 5% 1,000 Ml IVPB PRN PRN Hypoglycemia Protocol Insulin Aspart 4 - 8 units 04/17/25 08:00 04/17/25 08:00 Insulin Aspart (*Bkc) 100 Units/Ml SUB-Q Not Given TIDWM [facility] Protocol Insulin Glargine 20 units 04/16/25 21:00 04/16/25 20:59 Insulin Glargine (*Bkc) 100 Units/Ml SUB-Q 20 units HS SPENCER Administration Insulin Human Regular 20 units 04/16/25 17:10 04/17/25 08:20 Insulin Human Regular (*Bkc) 100 Units/Ml SUB-Q 20 units BIDWM SPENCER Administration Levothyroxine Sodium 50 mcg 04/17/25 09:00 Levothyroxine Sodium 50 Mcg Tablet PO DAILY@0630 SPENCER Lisinopril 2.5 mg 04/17/25 09:00 Lisinopril 2.5 Mg Tablet PO DAILY SPENCER Morphine Sulfate 2 mg 04/16/25 17:07 Morphine Sulfate (*Crx) 2 Mg/Ml Inj IV PUSH Q4H PRN Pain Rated 7-10 Polyethylene Glycol 17 gm 04/16/25 17:07 Polyethylene Glycol 3350 17 Gm Powd.Pack PO QAM PRN Constipation Propranolol HCl 20 mg 04/16/25 21:00 04/16/25 20:58 Propranolol Hcl 20 Mg Tablet PO 20 mg Q12HR SPENCER Administration Sertraline HCl 200 mg 04/16/25 18:00 04/16/25 18:08 Sertraline Hcl 50 Mg Tablet PO 200 mg QPM SPENCER Administration Radiology Results: ITS Impressions Lumbar Spine CT 04/16/25 13:36 IMPRESSION: 1. There is a acute compression fracture of the superior endplate of the L1 vertebral body with 25% vertebral body height loss. The compression fracture is comminuted. Minimal posterior retropulsion of the posterior superior compression fracture of the L1 vertebral body causing mild narrowing of the spinal canal. 2.Compression fracture of the superior endplate of the L2 vertebral body with 30% vertebral body height loss. No retropulsion of the fracture into the spinal canal. The fracture is likely acute. Attention on follow-up MRI imaging of the lumbar spine. 3. Acute compression fracture of L2 vertebral body which is mildly comminuted with 30% vertebral body height loss. No retropulsion of the fracture into the spinal canal. 4. No other fracture identified. 5. Grossly stable degenerative change at the L4-5 and L5-S1 levels. Consider an MRI of the lumbar spine for further assessment. Labs Labs: Laboratory Results - last 24 hr 04/16/25 04/16/25 04/16/25 15:07 17:17 20:58 WBC 10.2 H RBC 4.12 L Hgb 12.3 L Hct 37.9 L MCV 92.0 MCH 29.9 MCHC 32.5 RDW 13.0 Plt Count 213 MPV 10.5 H Immature Gran % (Auto) 0.6 H Neut % (Auto) 76.0 H Lymph % (Auto) 13.6 L [place] % (Auto) 6.3 Eos % (Auto) 3.2 Baso % (Auto) 0.3 Lymph # (Auto) 1.38 [place] # (Auto) 0.6 Eos # (Auto) 0.3 Baso # (Auto) 0.0 Abs Immat Gran (auto) 0.06 H Absolute Neuts (auto) 7.7 H Absolute Nucleated RBC 0.000 Nucleated RBC % 0.0 Sodium 137 Potassium 4.6 Chloride 103 Carbon Dioxide 24 Anion Gap 10 BUN 27 H Creatinine 1.37 H Estim Creat Clear Calc 53 Estimated GFR 52 L Glucose 162 H POC Capillary Glucose 143 H 162 H Calcium 9.9 04/17/25 04/17/25 04:34 07:57 WBC 9.4 RBC 3.84 L Hgb 11.6 L Hct 34.9 L MCV 90.9 MCH 30.2 MCHC 33.2 RDW 12.9 Plt Count 186 MPV 9.9 Immature Gran % (Auto) 0.5 Neut % (Auto) 70.7 Lymph % (Auto) 18.5 [place] % (Auto) 6.3 Eos % (Auto) 3.7 Baso % (Auto) 0.3 Lymph # (Auto) 1.73 [place] # (Auto) 0.6 Eos # (Auto) 0.4 H Baso # (Auto) 0.0 Abs Immat Gran (auto) 0.05 H Absolute Neuts (auto) 6.6 Absolute Nucleated RBC 0.000 Nucleated RBC % 0.0 Sodium 135 L Potassium 4.1 Chloride 103 Carbon Dioxide 25 Anion Gap 7 BUN 20 Creatinine 1.09 Estim Creat Clear Calc 66 Estimated GFR > 60 Glucose 123 H POC Capillary Glucose 140 H Calcium 9.1 Quality VTE Prophylaxis VTE prophylaxis: pharmacologic ordered
[2025-04-17] MEDS: OMEGA 3 POLYUNSAT FATTY ACIDS 1 GM CAP PO (08:39)
[2025-04-17] MEDS: ATORVASTATIN 40 MG TABLET PO (08:39)
[2025-04-17] MEDS: FENOFIBRATE NANOCRYSTALLIZED 145 MG TABLET PO (08:39)
[2025-04-17] MEDS: LEVOTHYROXINE SODIUM 50 MCG TABLET PO (08:39)
--- NOTE | 2025-04-17 13:16 | PCPTNOTE ---
Awaiting ortho consult prior to PT evaluation. Will follow. [id number]
[2025-04-17] MEDS: SERTRALINE HCL 50 MG TABLET 200 MG PO (17:11)
[2025-04-17] MEDS: DONEPEZIL HCL 5 MG TABLET PO (21:55)
[2025-04-17] MEDS: INSULIN GLARGINE (*BKC) 100 UNITS/ML 20 UNITS SUB-Q (22:00)
[2025-04-18] VITALS (15 sets, daily range): BP systolic 70–119; BP diastolic 35–70; PULSE 64–84; RESP 16–18; TEMP 36.3–36.9; O2SAT 92–95
[2025-04-18 05:28] LABS: Hematocrit 38.0 % (42.0-52.0); Hemoglobin 12.4 g/dL (14.0-18.0); Mean Corpuscular HGB Conc 32.6 g/dl (32-36); Mean Corpuscular Hemoglobin 29.9 pg (26-34); Mean Corpuscular Volume 91.6 fl (80-100); Platelet Count Result 208 k/mm3 (150-375); Red Blood Count 4.15 M/mm3 (4.6-6.20); White Blood Count 9.2 K/mm3 (4.5-10.0)
[2025-04-18] MEDS: GABAPENTIN 300 MG CAPSULE 600 MG PO ×3 (05:40→20:59)
[2025-04-18] MEDS: LEVOTHYROXINE SODIUM 50 MCG TABLET PO (05:40)
[2025-04-18 05:47] LABS: Anion Gap 7 mmol/L (4-12); Blood Urea Nitrogen 21 mg/dL (9-20); Calcium 9.2 mg/dL (8.4-10.2); Carbon Dioxide 25 mmol/L (22-30); Chloride 102 mmol/L (98-107); Estimated CRCL calculation 64 ml/min; Estimated Glomerular Filt Rate > 60; Glucose 196 mg/dL (65-110); Potassium 4.3 mmol/L (3.4-5.0); Sodium 134 mmol/L (137-145)
[2025-04-18] MEDS: PROPRANOLOL HCL 20 MG TABLET PO (08:14)
--- NOTE | 2025-04-18 08:14 | PM.IMPN ---
Progress Note: A&P Assessment and Plan (1) Syncope and collapse: Code(s): R55 - Syncope and collapse Status: Chronic Assessment and Plan: Ongoing history of syncope with most recent episode yesterday, 04/15, resulting in a fall. States syncope has become more frequent. States previous cardiac workup outpatient several years ago was unremarkable. Per patient this was performed at [facility] however unable to find prior workup on chart review besides a holter monitor in 01/2024. Holter monitor showing occasional PVC otherwise unremarkable. - EKG sinus rhythm with HR 69 - orthostatic vital signs ordered - head ct unremarkable - echo ordered - tele ordered - fall precautions (2) Closed right fibular fracture: Qualifiers: Encounter type: subsequent encounter Fibula location: distal Fracture healing: with routine healing Fracture morphology: other fracture Qualified Code(s): S82.831D - Other fracture of upper and lower end of right fibula, subsequent encounter for closed fracture with routine healing Code(s): S82.401A - Unspecified fracture of shaft of right fibula, initial encounter for closed fracture Status: Acute Assessment and Plan: - Foot XR, R, 04/16: Minimally displaced oblique fracture of the distal metaphyseal region of the right fibula. - splint applied to the RLE in the ED on 04/16 - analgesics prn - PT/OT and care coordination for placement as the patient has concurrent L-Spine fractures - ortho consulted (3) Compression fracture of lumbar vertebra: Qualifiers: Encounter type: subsequent encounter Fracture healing: with routine healing Lumbar vertebra fracture level: L2 Qualified Code(s): S32.020D - Wedge compression fracture of second lumbar vertebra, subsequent encounter for fracture with routine healing Code(s): S32.000A - Wedge compression fracture of unspecified lumbar vertebra, initial encounter for closed fracture Status: Acute Assessment and Plan: - L-Spine CT, 04/16: 1. There is a acute compression fracture of the superior endplate of the L1 vertebral body with 25% vertebral body height loss. The compression fracture is comminuted. Minimal posterior retropulsion of the posterior superior compression fracture of the L1 vertebral body causing mild narrowing of the spinal canal. 2.Compression fracture of the superior endplate of the L2 vertebral body with 30% vertebral body height loss. No retropulsion of the fracture into the spinal canal. The fracture is likely acute. Attention on follow-up MRI imaging of the lumbar spine. 3. Acute compression fracture of L2 vertebral body which is mildly comminuted with 30% vertebral body height loss. No retropulsion of the fracture into the spinal canal. 4. No other fracture identified. 5. Grossly stable degenerative change at the L4-5 and L5-S1 levels - TLSO brace placed, to be worn at all times when out of bed. - MRI L Spine - analgesics prn - neurosurgery consulted no bending, twisting, lifting >5-10 lb outpatient follow-up in 6 weeks bone health optimization with PCP stable-continue to follow recommendations for neurosurgery (4) Clavicle fracture: Qualifiers: Clavicle location: unspecified part of clavicle Encounter type: initial encounter Fracture alignment: displaced Fracture type: closed Laterality: right Qualified Code(s): S42.001A - Fracture of unspecified part of right clavicle, initial encounter for closed fracture Code(s): S42.009A - Fracture of unspecified part of unspecified clavicle, initial encounter for closed fracture Status: Inactive Assessment and Plan: Chest XR: Still ununited mildly displaced fracture of the lateral right clavicle is increasing sclerosis along the fracture plane suggesting progression towards nonunion. Chronic, previously seen on 01/26/2025 shoulder xr (5) Type 2 diabetes mellitus with peripheral neuropathy: Code(s): E11.42 - Type 2 diabetes mellitus with diabetic polyneuropathy Status: Chronic Assessment and Plan: - hypoglycemia protocol - POC blood glucose ACHS - home medication: Glargine 20 units q.p.m., regular insulin 20 units b.i.d. Hold Metformin in case of need for contrast. - correct regimen ordered - Continue Glargine 20 units q.p.m., regular insulin 20 units b.i.d., started on high dose TIDWM, based off BMI - A1C 7.4% on 02/08/2025 Glucose well controlled. Continue to monitor. (6) COPD (chronic obstructive pulmonary disease): Qualifiers: COPD type: unspecified COPD Qualified Code(s): J44.9 - Chronic obstructive pulmonary disease, unspecified Code(s): J44.9 - Chronic obstructive pulmonary disease, unspecified Status: Chronic Assessment and Plan: - no current evidence of exacerbation - continue home medications Time Spent With Patient Time with patient: 25 - 35 minutes Subjective Date/time seen: 04/18/25 08:14 Interval history: 65 y/o M with PMH of benign essential tremor, hypothyroidism, depression, diabetes, COPD, and benign positional vertigo presents to the hospital following a syncopal episode resulting in multiple falls leading to back pain and foot pain. Patient pleasant lying comfortably in bed. He continues to endorse back pain. TLSO brace recommended per Neurosurgery. Patient denies any tingling/numbness/shooting pain to the lower extremity. Patient stats that pain is currently well controlled. Patient notes that his syncope has been increasing in frequency. States previous cardiac workup outpatient several years ago was unremarkable. Per patient this was performed at [facility] however unable to find prior workup on chart review besides a holter monitor in 01/2024. Holter monitor showing occasional PVC otherwise unremarkable. Patient does note that the syncope occurs not long after changing positions, orthostatic vital signs ordered. He has no other complaints denying chest pain, palpitations, nausea/vomiting, shortness of breath and abdominal pain. Assuming care. pt is seen and examined. Working with PT/OT, pain is fairly well controlled. Thinks he needs to go to the bathroom for BM now. Review of Systems Review of Systems: All systems reviewed & are unremarkable except as noted in HPI and below Exam Narrative: General: male in no acute respiratory distress who is nontoxic appearing. HEENT: Normocephalic. Atraumatic. Extraocular movement intact. Sclera clear and anicteric. No facial asymmetry. Chest: Lungs are clear to auscultation bilaterally. No wheezes or crackles. CV: Heart was regular rate and rhythm. S1/S2. No murmurs, gallops, or rubs. Abd: Abdomen was soft. Nontender. Nondistended. Positive bowel sounds. Ext: No clubbing, cyanosis, or edema. DP pulses bilaterally. Neuro: Patient is alert and oriented x3. Strength is 5/5 in both upper and lower extremities. Speech is clear. Const: General: comfortable and no acute distress Other: , male, nontoxic appearance HENMT: Face/Nose/Sinus: Normal nares present Mouth: Yes moist mucous membranes Eyes: General: appearance normal, both eyes and all related structures Sclera: sclerae normal Pupils: Equal, round and reactive pupils present EOM: EOMs intact bilaterally Resp: Effort & Inspection: normal respiratory effort Auscultation: clear to auscultation bilaterally Cardio: Rate: regular rate Rhythm: regular rhythm Other: S1-S2 present without murmur, rub, ectopy GI: Other: Abdomen soft, nondistended, nontender. Normoactive bowel sounds in all quadrants. Back/Spine/Pelvis: Thoracic/Lumbar Spine: thoracic spinal tenderness (Worsens with movement) Skin: General skin exam: normal color and no rashes or lesions noted Wounds: no wounds Neuro: Cranial nerves: Yes Equal, round and reactive pupils present Speech: normal speech Motor exam (neuro): 5/5 motor strength present throughout Sensory Exam: normal sensation Other: A&O x4 Extrem: Other: Brace in place to right foot. Cap refill brisk. Denies numbness. Psych: Mental Status: mental status grossly normal Affect: normal affect Other: Good insight and judgment, pleasant Objective Data Vital Signs Vital Signs: Vital Signs - 24 hr 04/17/25 08:38 04/17/25 08:39 04/17/25 12:03 Temperature Pulse Rate 65 73 Respiratory Rate 18 Blood Pressure Pulse Oximetry 100 Oxygen Delivery Room Air 04/17/25 14:00 04/17/25 16:03 04/17/25 20:00 Temperature 98.6 F Pulse Rate 98 66 66 Respiratory Rate 19 Blood Pressure 122/68 Pulse Oximetry 100 Oxygen Delivery 04/17/25 20:00 04/17/25 20:13 04/17/25 21:54 Temperature 97.6 F Pulse Rate 62 66 Respiratory Rate 18 Blood Pressure 114/70 Pulse Oximetry 97 Oxygen Delivery Room Air 04/18/25 00:00 04/18/25 03:57 04/18/25 04:00 Temperature 97.7 F Pulse Rate 75 65 74 Respiratory Rate 18 Blood Pressure 119/70 Pulse Oximetry 95 Oxygen Delivery Intake/Output Intake/Output: Intake & Output 04/15/25 04/16/25 04/17/25 04/18/25 23:59 23:59 23:59 23:59 Intake Total 360 1360 3 Output Total 875 Balance 360 485 3 Meds/Results Medications: Active Medications Generic Name Dose Route Start Last Admin Trade Name Freq PRN Reason Stop Dose Admin Acetaminophen 650 mg 04/16/25 17:07 Acetaminophen 325 Mg Tablet PO Q6H PRN Mild Pain (1-3) or Fever Hydrocodone Bitart/Acetaminophen 1 tab 04/16/25 17:07 04/17/25 13:20 Hydrocodone/Acetaminophen (*Crx) 5-325 Mg Tablet PO 1 tab Q6H PRN Administration Pain Rated 4-6 Atorvastatin Calcium 40 mg 04/17/25 09:00 04/17/25 08:39 Atorvastatin 40 Mg Tablet PO 40 mg DAILY SPENCER Administration Dextrose 12.5 gm 04/16/25 17:07 Dextrose 50% 25 Gm/50 Ml Syringe IV PUSH PRN PRN Hypoglycemia Protocol Docusate Sodium 100 mg 04/16/25 17:07 Docusate Sodium 100 Mg Capsule PO Q12H PRN Constipation Donepezil HCl 5 mg 04/16/25 21:00 04/17/25 21:55 Donepezil Hcl 5 Mg Tablet PO 5 mg QHS SPENCER Administration Enoxaparin Sodium 40 mg 04/17/25 09:00 04/17/25 08:38 Enoxaparin 40 Mg/0.4 Ml Syringe SUB-Q 40 mg DAILY SPENCER Administration Fenofibrate 145 mg 04/17/25 09:00 04/17/25 08:39 Fenofibrate Nanocrystallized 145 Mg Tablet PO 145 mg QAM SPENCER Administration Fish Oil 1 gm 04/17/25 09:00 04/17/25 08:39 [place] 3 Polyunsat Fatty Acids 1 Gm Cap PO 1 gm DAILY SPENCER Administration Gabapentin 600 mg 04/16/25 22:00 04/18/25 05:40 Gabapentin 300 Mg Capsule PO 600 mg Q8HR SPENCER Administration Glucagon 1 mg 04/16/25 17:07 Glucagon For Inj 1 Mg Vial IM PRN PRN Hypoglycemia Protocol Glucose 15 gm 04/16/25 17:07 Glucose Oral Gel 15 Gm Of Glucse In 37.5 Gm Tube PO PRN PRN Hypoglycemia Protocol Dextrose 1,000 mls @ 100 mls/hr 04/16/25 17:07 Dextrose 5% 1,000 Ml IVPB PRN PRN Hypoglycemia Protocol Insulin Aspart 4 - 8 units 04/17/25 08:00 04/17/25 16:57 Insulin Aspart (*Bkc) 100 Units/Ml SUB-Q Not Given TIDWM SPENCER Protocol Insulin Glargine 20 units 04/16/25 21:00 04/17/25 22:00 Insulin Glargine (*Bkc) 100 Units/Ml SUB-Q 20 units HS SPENCER Administration Insulin Human Regular 20 units 04/16/25 17:10 04/17/25 17:11 Insulin Human Regular (*Bkc) 100 Units/Ml SUB-Q Not Given BIDWM [facility] Levothyroxine Sodium 50 mcg 04/17/25 09:00 04/18/25 05:40 Levothyroxine Sodium 50 Mcg Tablet PO 50 mcg DAILY@0630 SPENCER Administration Lisinopril 2.5 mg 04/17/25 09:00 04/17/25 08:39 Lisinopril 2.5 Mg Tablet PO 2.5 mg DAILY SPENCER Administration Morphine Sulfate 2 mg 04/16/25 17:07 04/17/25 21:47 Morphine Sulfate (*Crx) 2 Mg/Ml Inj IV PUSH 2 mg Q4H PRN Administration Pain Rated 7-10 Polyethylene Glycol 17 gm 04/16/25 17:07 Polyethylene Glycol 3350 17 Gm Powd.Pack PO QAM PRN Constipation Propranolol HCl 20 mg 04/16/25 21:00 04/17/25 21:54 Propranolol Hcl 20 Mg Tablet PO 20 mg Q12HR SPENCER Administration Sertraline HCl 200 mg 04/16/25 18:00 04/17/25 17:11 Sertraline Hcl 50 Mg Tablet PO 200 mg QPM SPENCER Administration Radiology Results: ITS Impressions Lumbar Spine CT 04/16/25 13:36 IMPRESSION: 1. There is a acute compression fracture of the superior endplate of the L1 vertebral body with 25% vertebral body height loss. The compression fracture is comminuted. Minimal posterior retropulsion of the posterior superior compression fracture of the L1 vertebral body causing mild narrowing of the spinal canal. 2.Compression fracture of the superior endplate of the L2 vertebral body with 30% vertebral body height loss. No retropulsion of the fracture into the spinal canal. The fracture is likely acute. Attention on follow-up MRI imaging of the lumbar spine. 3. Acute compression fracture of L2 vertebral body which is mildly comminuted with 30% vertebral body height loss. No retropulsion of the fracture into the spinal canal. 4. No other fracture identified. 5. Grossly stable degenerative change at the L4-5 and L5-S1 levels. Consider an MRI of the lumbar spine for further assessment. Ankle X-Ray 04/17/25 12:10 Impression: Distal fibular fracture Lumbar Spine MRI 04/17/25 13:38 IMPRESSION: 1. Acute to subacute L1 burst fracture and chronic compression fractures at T11 and L2-L4. 2. Moderate lumbar spondylosis. Labs Labs: Laboratory Results - last 24 hr 04/17/25 04/17/25 04/17/25 11:29 16:37 22:00 WBC RBC Hgb Hct MCV MCH MCHC RDW Plt Count MPV Sodium Potassium Chloride Carbon Dioxide Anion Gap BUN Creatinine Estim Creat Clear Calc Estimated GFR Glucose POC Capillary Glucose 71 116 H 156 H Calcium 04/18/25 04/18/25 05:05 07:51 WBC 9.2 RBC 4.15 L Hgb 12.4 L Hct 38.0 L MCV 91.6 MCH 29.9 MCHC 32.6 RDW 12.8 Plt Count 208 MPV 10.0 Sodium 134 L Potassium 4.3 Chloride 102 Carbon Dioxide 25 Anion Gap 7 BUN 21 H Creatinine 1.14 Estim Creat Clear Calc 64 Estimated GFR > 60 Glucose 196 H POC Capillary Glucose 148 H Calcium 9.2 Quality VTE Prophylaxis VTE prophylaxis: pharmacologic ordered
[2025-04-18] MEDS: FENOFIBRATE NANOCRYSTALLIZED 145 MG TABLET PO (08:15)
[2025-04-18] MEDS: HYDROcodone/acetaminophen (*CRX) 5-325 MG TABLET 1 TAB PO (08:15)
[2025-04-18] MEDS: ENOXAPARIN 40 MG/0.4 ML SYRINGE SUB-Q (08:15)
[2025-04-18] MEDS: ATORVASTATIN 40 MG TABLET PO (08:15)
[2025-04-18] MEDS: OMEGA 3 POLYUNSAT FATTY ACIDS 1 GM CAP PO (08:15)
[2025-04-18] MEDS: INSULIN HUMAN REGULAR (*BKC) 100 UNITS/ML 20 UNITS SUB-Q ×2 (10:05→17:32)
--- NOTE | 2025-04-18 11:22 | PC.NURSE ---
RN called orthopedic solution manager Dr. Tellez about a possible ortho evaluation to be able to move forward with PT and OT. No answer. Message was left.
--- NOTE | 2025-04-18 11:47 | PC.NURSE ---
Orthopedic Geoff returned phone call and said he would be here this afternoon.
[2025-04-18] MEDS: SODIUM CHLORIDE 0.9% IV 250 ML 999 ML IV CONT (15:27)
--- NOTE | 2025-04-18 15:35 | PC.NURSE ---
Alex Aldana called RN to room because of a soft BP. RN took it manually and received a soft BP. RN called TRACEE Reagan and received orders for a 250 mL bolus. RN started bolus and is bedside with patient.
--- NOTE | 2025-04-18 15:46 | PC.NURSE ---
RN called TRACEE Reagan to update her on patient's status post bolus. No answer, but message was left.
--- NOTE | 2025-04-18 16:05 | ECG_ITS ---
Test Date: 2025-04-18 16:27:09 Measurements Intervals [place] Rate: 61 P: 59 MA: 182 QRS: 16 QRSD: 100 T: 59 QT: 421 QTc: 426 Interpretive Statements SINUS RHYTHM INCOMPLETE RIGHT BUNDLE BRANCH BLOCK BORDERLINE ECG Compared to ECG 04/16/2025 00:48:44 NO SIGNIFICANT CHANGE Electronically Signed On 04-18-2025 18:51:28 CDT by Lawson Augustin D.O.
[2025-04-18] MEDS: SODIUM CHLORIDE 0.9% IV 1,000 ML 999 ML IV CONT (16:07)
[2025-04-18 17:24] LABS: Hematocrit 32.9 % (42.0-52.0); Hemoglobin 10.9 g/dL (14.0-18.0); Mean Corpuscular HGB Conc 33.1 g/dl (32-36); Mean Corpuscular Hemoglobin 30.0 pg (26-34); Mean Corpuscular Volume 90.6 fl (80-100); Platelet Count Result 191 k/mm3 (150-375); Red Blood Count 3.63 M/mm3 (4.6-6.20); White Blood Count 8.0 K/mm3 (4.5-10.0)
[2025-04-18] MEDS: SERTRALINE HCL 50 MG TABLET 200 MG PO (17:32)
[2025-04-18 17:44] LABS: Alanine Aminotransferase 22 U/L (6-50); Albumin Level 3.3 g/dL (3.5-5.1); Alkaline Phosphatase 49 U/L (38-126); Anion Gap 8 mmol/L (4-12); Aspartate Amino Transferase 33 U/L (17-59); Bilirubin,Total 0.8 mg/dL (0.2-1.3); Blood Urea Nitrogen 26 mg/dL (9-20); Calcium 8.5 mg/dL (8.4-10.2); Carbon Dioxide 22 mmol/L (22-30); Chloride 105 mmol/L (98-107); Estimated CRCL calculation 53 ml/min; Estimated Glomerular Filt Rate 51; Glucose 186 mg/dL (65-110); Potassium 4.1 mmol/L (3.4-5.0); Sodium 135 mmol/L (137-145); Total Protein 6.0 g/dL (6.3-8.2)
[2025-04-18 18:10] LABS: Thyroid Stimulating Hormone Reflex 2.200 uIU/mL (0.465-4.68)
--- NOTE | 2025-04-18 20:37 | PM.CNOR ---
Assessment and Plan Assessment and plan (1) Closed right ankle fracture: Code(s): S82.891A - Other fracture of right lower leg, initial encounter for closed fracture Status: Acute Plan 65 yr old male with Right Ankle Stable fibular fracture. - recommend toe touch weight bearing - follow up in 2 weeks, - Non-operative. History of Present Illness HPI Consult date: 04/18/25 Chief complaint: Right Ankle Fracture Narrative: 65-year-old male presenting to ED after a syncopal episode Known history of recurrent syncopal episodes occurring over an extended period Initial evaluation in ED for fall and Foot xrays obtained. - Right Fib fx on these xrays - patient returned to ED and then subsequently admitted. [facility], [facility] Past Medical History Medical History (Updated 04/18/25 @ 20:44 by Tommy Tellez MD) Dyslipidemia Type 2 diabetes mellitus with peripheral neuropathy Benign essential tremor Acquired hypothyroidism Left carpal tunnel syndrome Major depressive disorder, recurrent episode Type 2 diabetes mellitus with hyperglycemia, with long-term current use of insulin Memory loss COPD (chronic obstructive pulmonary disease) Anxiety Benign positional vertigo Surgical History Surgical History History of right knee surgery History of surgery on right wrist History of hernia repair Family History Family History Father Family history of diabetes mellitus in first degree relative Alcoholism in family member Mother Diabetes mellitus Grandparent Diabetes mellitus Alcoholism in family member Social History Social History Social History: Caffeine Cola 4 bottles a day Smoking status: Former smoker Tobacco type: cigarettes Alcohol intake: never Substance use: never Substance use type: marijuana Do You Feel Safe in your Home?: Yes Lack of Transportation: No Lack of Food: Never True Current Housing: I Have Housing Concerned About Future Housing: No Difficulty Paying Gas/Electric Bills: YES Difficulty Paying for Meds: No Currently Unemployed: No Education: High School Diploma/GED Difficulty w/ Childcare or Family Care: No Living arrangements: with family Occupation/Education: retired Gender identity (if verbalized by the patient): Male Sexual Orientation (if Verbalized by the Patient): Straight or Heterosexual Spiritual care concerns: No Meds Home Medications and Allergies Home Medications ?Medication ?Instructions ?Recorded ?Confirmed ?Type lancets 26 gauge (TRUEplus Lancets) #100 ea 12/25/19 04/16/25 History pen needle, diabetic 31 gauge x #1,200 ea 12/25/19 04/16/25 History 5/16 (BD Ultra-Fine Short Pen Needle) propranolol 20 mg tablet 20 mg PO Q12H 12/25/19 04/16/25 History blood sugar diagnostic (OneTouch #100 ea 06/08/24 04/16/25 Rx Ultra Test strips) insulin U-500 syringe-needle 1/2 #200 ea 07/11/24 04/16/25 Rx mL 31 gauge x 15/64 (BD Insulin Syringe U-500) insulin syringe-needle U-100 0.5 #400 ea 07/11/24 04/16/25 Rx mL 31 gauge x 5/16 (BD Insulin Syringe Ultra-Fine) insulin syringe-needle U-100 1 mL #100 ea 07/14/24 04/16/25 Rx 31 gauge x 5/16 (TRUEplus Insulin) blood-glucose sensor (Dexcom G6 #3 ea 09/11/24 04/16/25 Rx Sensor device) blood-glucose transmitter (Dexcom #1 ea 09/11/24 04/16/25 Rx G6 Transmitter device) blood-glucose,drum sealer,cont #1 ea 09/11/24 04/16/25 Rx (Dexcom G6 Underbaster) donepezil 5 mg tablet (Aricept) 5 mg PO QHS 09/21/24 04/16/25 History omega-3 fatty acids 1,000 mg 1,000 mg PO DAILY 09/21/24 04/16/25 History capsule sertraline 100 mg tablet 200 mg PO QPM 09/21/24 04/16/25 History gabapentin 600 mg tablet 600 mg PO TID #270 tabs 10/04/24 04/16/25 Rx metformin 500 mg tablet,extended 1,000 mg (2 x 500 mg) PO BID #360 01/22/25 04/16/25 Rx release 24 hr tabs levothyroxine 50 mcg tablet 50 mcg PO DAILY #30 tabs 01/25/25 04/16/25 Rx (Synthroid) insulin regular human 100 unit/mL See Rx Instructions .Route 03/05/25 04/16/25 Rx injection solution (Humulin R .COMPLEX #10 mL Regular U-100 Insulin) lisinopril 2.5 mg tablet See Rx Instructions .Route 03/06/25 04/16/25 Rx .COMPLEX #90 tabs fenofibrate 160 mg tablet 160 mg PO DAILY #90 tabs 03/13/25 04/16/25 Rx atorvastatin 40 mg tablet 40 mg PO DAILY #90 tabs 04/03/25 04/16/25 Rx insulin glargine 100 unit/mL (3 20 unit subcut QPM 04/16/25 04/16/25 History mL) subcutaneous pen (Basaglar KwikPen U-100 Insulin) Allergies Allergy/AdvReac Type Severity Reaction Status Date / Time amoxicillin Allergy Unknown throat Verified 04/16/25 12:34 swelling Penicillins Allergy Unknown throat Verified 04/16/25 12:34 swelling Vital Signs Vital Signs - 24 hr 04/17/25 21:54 04/18/25 00:00 04/18/25 03:57 Temperature 36.5 C Pulse Rate 66 75 65 Respiratory Rate 18 Blood Pressure 119/70 Pulse Oximetry 95 Oxygen Delivery 04/18/25 04:00 04/18/25 08:00 04/18/25 08:10 Temperature Pulse Rate 74 66 Respiratory Rate Blood Pressure Pulse Oximetry Oxygen Delivery Room Air 04/18/25 08:14 04/18/25 12:00 04/18/25 14:00 Temperature 36.6 C Pulse Rate 84 68 71 Respiratory Rate 16 Blood Pressure 73/41 L Pulse Oximetry 94 Oxygen Delivery 04/18/25 15:31 04/18/25 15:46 04/18/25 16:00 Temperature Pulse Rate 68 68 Respiratory Rate 16 Blood Pressure 70/35 L 80/49 L Pulse Oximetry 92 Oxygen Delivery 04/18/25 17:21 04/18/25 17:30 Temperature 36.9 C Pulse Rate 64 Respiratory Rate 16 Blood Pressure 107/53 L 116/61 Pulse Oximetry 94 Oxygen Delivery Exam Narrative: Right Ankle in posterior splint. Cap refill and sensation wnl. - knee shows no swelling tenderness or deformity Const: General: cooperative, comfortable and no acute distress Nutritional Appearance: average body habitus Orientation/consciousness: oriented to person, oriented to place and oriented to time Results Labs 04/18/25 16:36 04/18/25 16:36 Labs: Abnormal lab results 04/17/25 04/18/25 04/18/25 Range/Units 22:00 05:05 07:51 RBC 4.15 L (4.6-6.20) M/mm3 Hgb 12.4 L (14.0-18.0) g/dL Hct 38.0 L (42.0-52.0) % Sodium 134 L (137-145) mmol/L BUN 21 H (9-20) mg/dL Creatinine (0.7-1.3) mg/dL Estimated GFR (59 - ) Glucose 196 H (65-110) mg/dL POC Capillary Glucose 156 H 148 H (65-105) mg/dl Lactic Acid (0.7-2.0) mmol/L Total Protein (6.3-8.2) g/dL Albumin (3.5-5.1) g/dL 04/18/25 04/18/25 04/18/25 Range/Units 11:36 15:25 16:36 RBC 3.63 L (4.6-6.20) M/mm3 Hgb 10.9 L (14.0-18.0) g/dL Hct 32.9 L (42.0-52.0) % Sodium 135 L (137-145) mmol/L BUN 26 H (9-20) mg/dL Creatinine 1.39 H (0.7-1.3) mg/dL Estimated GFR 51 L (59 - ) Glucose 186 H (65-110) mg/dL POC Capillary Glucose 157 H 202 H (65-105) mg/dl Lactic Acid 0.6 L (0.7-2.0) mmol/L Total Protein 6.0 L (6.3-8.2) g/dL Albumin 3.3 L (3.5-5.1) g/dL 04/18/25 Range/Units 16:47 RBC (4.6-6.20) M/mm3 Hgb (14.0-18.0) g/dL Hct (42.0-52.0) % Sodium (137-145) mmol/L BUN (9-20) mg/dL Creatinine (0.7-1.3) mg/dL Estimated GFR (59 - ) Glucose (65-110) mg/dL POC Capillary Glucose 184 H (65-105) mg/dl Lactic Acid (0.7-2.0) mmol/L Total Protein (6.3-8.2) g/dL Albumin (3.5-5.1) g/dL H & H 04/16/25 04/17/25 04/18/25 Range/Units 15:07 04:34 05:05 Hgb 12.3 L 11.6 L 12.4 L (14.0-18.0) g/dL Hct 37.9 L 34.9 L 38.0 L (42.0-52.0) % 04/18/25 Range/Units 16:36 Hgb 10.9 L (14.0-18.0) g/dL Hct 32.9 L (42.0-52.0) % All other labs normal.
[2025-04-18] MEDS: DONEPEZIL HCL 5 MG TABLET PO (20:59)
[2025-04-18] MEDS: INSULIN GLARGINE (*BKC) 100 UNITS/ML 20 UNITS SUB-Q (21:00)
[2025-04-19] VITALS (18 sets, daily range): BP systolic 74–123; BP diastolic 40–69; PULSE 62–83; RESP 16–20; TEMP 36.1–36.8; O2SAT 96–99
[2025-04-19] MEDS: HYDROcodone/acetaminophen (*CRX) 5-325 MG TABLET 1 TAB PO (03:34)
[2025-04-19 05:26] LABS: Hematocrit 34.4 % (42.0-52.0); Hemoglobin 11.4 g/dL (14.0-18.0); Mean Corpuscular HGB Conc 33.1 g/dl (32-36); Mean Corpuscular Hemoglobin 30.1 pg (26-34); Mean Corpuscular Volume 90.8 fl (80-100); Platelet Count Result 186 k/mm3 (150-375); Red Blood Count 3.79 M/mm3 (4.6-6.20); White Blood Count 9.3 K/mm3 (4.5-10.0)
[2025-04-19 05:41] LABS: Anion Gap 6 mmol/L (4-12); Blood Urea Nitrogen 22 mg/dL (9-20); Calcium 9.0 mg/dL (8.4-10.2); Carbon Dioxide 24 mmol/L (22-30); Chloride 108 mmol/L (98-107); Estimated CRCL calculation 60 ml/min; Estimated Glomerular Filt Rate 60; Glucose 92 mg/dL (65-110); Potassium 4.3 mmol/L (3.4-5.0); Sodium 138 mmol/L (137-145)
[2025-04-19] MEDS: GABAPENTIN 300 MG CAPSULE 600 MG PO ×3 (06:17→21:44)
[2025-04-19] MEDS: LEVOTHYROXINE SODIUM 50 MCG TABLET PO (06:17)
--- NOTE | 2025-04-19 07:16 | P.PNIM_ITS ---
Progress Note: A&P Assessment and Plan (1) Syncope and collapse: Code(s): R55 - Syncope and collapse Status: Chronic Assessment and Plan: Ongoing history of syncope with most recent episode yesterday, 04/15, resulting in a fall. States syncope has become more frequent. States previous cardiac workup outpatient several years ago was unremarkable. Per patient this was performed at [facility] however unable to find prior workup on chart review besides a holter monitor in 01/2024. Holter monitor showing occasional PVC otherwise unremarkable. - EKG sinus rhythm with HR 69 - orthostatic vital signs ordered - head ct unremarkable - echo ordered - tele ordered - fall precautions reports had been on propanolol for a while and recently was increased in dose for shakiness and tremors (2) Closed right fibular fracture: Qualifiers: Encounter type: subsequent encounter Fibula location: distal Fracture healing: with routine healing Fracture morphology: other fracture Qualified Code(s): S82.831D - Other fracture of upper and lower end of right fibula, subsequent encounter for closed fracture with routine healing Code(s): S82.401A - Unspecified fracture of shaft of right fibula, initial encounter for closed fracture Status: Acute Assessment and Plan: - Foot XR, R, 04/16: Minimally displaced oblique fracture of the distal metaphyseal region of the right fibula. - splint applied to the RLE in the ED on 04/16 - analgesics prn - PT/OT and care coordination for placement as the patient has concurrent L- Spine fractures - ortho consulted DR Tellez saw pt last night: 65 yr old male with Right Ankle Stable fibular fracture. - recommend toe touch weight bearing - follow up in 2 weeks, - Non-operative (3) Compression fracture of lumbar vertebra: Qualifiers: Encounter type: subsequent encounter Fracture healing: with routine healing Lumbar vertebra fracture level: L2 Qualified Code(s): S32.020D - Wedge compression fracture of second lumbar vertebra, subsequent encounter for fracture with routine healing Code(s): S32.000A - Wedge compression fracture of unspecified lumbar vertebra, initial encounter for closed fracture Status: Acute Assessment and Plan: - L-Spine CT, 04/16: 1. There is a acute compression fracture of the superior endplate of the L1 vertebral body with 25% vertebral body height loss. The compression fracture is comminuted. Minimal posterior retropulsion of the posterior superior compression fracture of the L1 vertebral body causing mild narrowing of the spinal canal. 2.Compression fracture of the superior endplate of the L2 vertebral body with 30% vertebral body height loss. No retropulsion of the fracture into the spinal canal. The fracture is likely acute. Attention on follow-up MRI imaging of the lumbar spine. 3. Acute compression fracture of L2 vertebral body which is mildly comminuted with 30% vertebral body height loss. No retropulsion of the fracture into the spinal canal. 4. No other fracture identified. 5. Grossly stable degenerative change at the L4-5 and L5-S1 levels - TLSO brace placed, to be worn at all times when out of bed. - MRI L Spine - analgesics prn - neurosurgery consulted no bending, twisting, lifting >5-10 lb outpatient follow-up in 6 weeks bone health optimization with PCP stable-continue to follow recommendations for neurosurgery (4) Clavicle fracture: Qualifiers: Clavicle location: unspecified part of clavicle Encounter type: initial encounter Fracture alignment: displaced Fracture type: closed Laterality: right Qualified Code(s): S42.001A - Fracture of unspecified part of right clavicle, initial encounter for closed fracture Code(s): S42.009A - Fracture of unspecified part of unspecified clavicle, initial encounter for closed fracture Status: Inactive Assessment and Plan: Chest XR: Still ununited mildly displaced fracture of the lateral right clavicle is increasing sclerosis along the fracture plane suggesting progression towards nonunion. Chronic, previously seen on 01/26/2025 shoulder xr (5) Type 2 diabetes mellitus with peripheral neuropathy: Code(s): E11.42 - Type 2 diabetes mellitus with diabetic polyneuropathy Status: Chronic Assessment and Plan: - hypoglycemia protocol - POC blood glucose ACHS - home medication: Glargine 20 units q.p.m., regular insulin 20 units b.i.d. Hold Metformin in case of need for contrast. - correct regimen ordered - Continue Glargine 20 units q.p.m., regular insulin 20 units b.i.d., started on high dose TIDWM, based off BMI - A1C 7.4% on 02/08/2025 Glucose well controlled. Continue to monitor. (6) COPD (chronic obstructive pulmonary disease): Qualifiers: COPD type: unspecified COPD Qualified Code(s): J44.9 - Chronic obstructive pulmonary disease, unspecified Code(s): J44.9 - Chronic obstructive pulmonary disease, unspecified Status: Chronic Assessment and Plan: - no current evidence of exacerbation - continue home medications (7) Hypotension: Code(s): I95.9 - Hypotension, unspecified Status: Acute Assessment and Plan: had an episode of hypotension last night, as low as 70/35- was alert and oriented, just felt weak -received 1 l IV fluids-which improved his BP lactic acid, tsh, bc were collected- bc pending, but everything else is unremarkable -hr stable, low suspicious for any shock - monitor closely pt is at high fall risk Time Spent With Patient Time with patient: 25 - 35 minutes Subjective Date/time seen: 04/19/25 07:16 Interval history: 65 y/o M with PMH of benign essential tremor, hypothyroidism, depression, diabetes, COPD, and benign positional vertigo presents to the hospital following a syncopal episode resulting in multiple falls leading to back pain and foot pain. Pt is seen and examined. continues to endorse back pain. TLSO brace recommended per Neurosurgery. He denies any tingling/numbness/shooting pain to the lower extremity. Patient stats that pain is currently well controlled. Of note, pt had hypotensive episodes last night- with BP as low as 70/35. Received 1l of IV fluids. He felt somewhat weak but was alert and oriented. His BP had been stabilized and improved. Patient notes that his syncope has been increasing in frequency. States previous cardiac workup outpatient several years ago was unremarkable. Per patient this was performed at [facility] however unable to find prior workup on chart review besides a holter monitor in 01/2024. Holter monitor showi ng occasional PVC otherwise unremarkable. Patient does note that the syncope occurs not long after changing positions, orthostatic vital signs ordered. He has no other complaints denying chest pain, palpitations, nausea/vomiting, shortness of breath and abdominal pain. 04/19 pt is seen and examined. pain is well controlled. DR Tellez saw him and no acute interventions. Review of Systems Review of Systems: All systems reviewed & are unremarkable except as noted in HPI and below Exam Narrative: General: male in no acute respiratory distress who is nontoxic appearing. HEENT: Normocephalic. Atraumatic. Extraocular movement intact. Sclera clear and anicteric. No facial asymmetry. Chest: Lungs are clear to auscultation bilaterally. No wheezes or crackles. CV: Heart was regular rate and rhythm. S1/S2. No murmurs, gallops, or rubs. Abd: Abdomen was soft. Nontender. Nondistended. Positive bowel sounds. Ext: No clubbing, cyanosis, or edema. DP pulses bilaterally. Neuro: Patient is alert and oriented x3. Strength is 5/5 in both upper and lower extremities. Speech is clear. Const: General: comfortable and no acute distress Other: , male, nontoxic appearance HENMT: Face/Nose/Sinus: Normal nares present Mouth: Yes moist mucous membranes Eyes: General: appearance normal, both eyes and all related structures Sclera: sclerae normal Pupils: Equal, round and reactive pupils present EOM: EOMs intact bilaterally Resp: Effort & Inspection: normal respiratory effort Auscultation: clear to auscultation bilaterally Cardio: Rate: regular rate Rhythm: regular rhythm Other: S1-S2 present without murmur, rub, ectopy GI: Other: Abdomen soft, nondistended, nontender. Normoactive bowel sounds in all quadrants. Back/Spine/Pelvis: Thoracic/Lumbar Spine: thoracic spinal tenderness (Worsens with movement) Skin: General skin exam: normal color and no rashes or lesions noted Wounds: no wounds Neuro: Cranial nerves: Yes Equal, round and reactive pupils present Speech: normal speech Motor exam (neuro): 5/5 motor strength present throughout Sensory Exam: normal sensation Other: A&O x4 Extrem: Other: Brace in place to right foot. Cap refill brisk. Denies numbness. Psych: Mental Status: mental status grossly normal Affect: normal affect Other: Good insight and judgment, pleasant Objective Data Vital Signs Vital Signs: Vital Signs - 24 hr 04/18/25 08:00 04/18/25 08:10 04/18/25 08:14 Temperature Pulse Rate 66 84 Respiratory Rate Blood Pressure Pulse Oximetry Oxygen Delivery Room Air Fraction of Inspired Oxygen 04/18/25 12:00 04/18/25 14:00 04/18/25 15:31 Temperature 97.9 F Pulse Rate 68 71 Respiratory Rate 16 Blood Pressure 73/41 L 70/35 L Pulse Oximetry 94 Oxygen Delivery Fraction of Inspired Oxygen 04/18/25 15:46 04/18/25 16:00 04/18/25 17:21 Temperature Pulse Rate 68 68 Respiratory Rate 16 Blood Pressure 80/49 L 107/53 L Pulse Oximetry 92 Oxygen Delivery Fraction of Inspired Oxygen 04/18/25 17:30 04/18/25 20:00 04/18/25 20:09 Temperature 98.4 F Pulse Rate 64 74 70 Respiratory Rate 16 Blood Pressure 116/61 Pulse Oximetry 94 95 Oxygen Delivery Autopap Fraction of Inspired Oxygen 21 04/18/25 21:41 04/19/25 00:00 04/19/25 00:09 Temperature 97.3 F L 97.2 F L Pulse Rate 69 68 69 Respiratory Rate 16 16 Blood Pressure 99/53 L 90/47 L Pulse Oximetry 95 97 Oxygen Delivery Fraction of Inspired Oxygen 04/19/25 03:33 04/19/25 04:00 Temperature 97 F L Pulse Rate 62 63 Respiratory Rate 18 Blood Pressure 108/40 L Pulse Oximetry 99 Oxygen Delivery Fraction of Inspired Oxygen Intake/Output Intake/Output: Intake & Output 04/16/25 04/17/25 04/18/25 04/19/25 23:59 23:59 23:59 23:59 Intake Total 360 1360 1135 400 Output Total 875 Balance 867 127 3417 400 Meds/Results Medications: Active Medications Generic Name Dose Route Start Last Admin Trade Name Freq PRN Reason Stop Dose Admin Acetaminophen 650 mg 04/16/25 17:07 Acetaminophen 325 Mg Tablet PO Q6H PRN Mild Pain (1-3) or Fever Hydrocodone Bitart/Acetaminophen 1 tab 04/16/25 17:07 04/19/25 03:34 Hydrocodone/Acetaminophen (*Crx) 5-325 Mg Tablet PO 1 tab Q6H PRN Administration Pain Rated 4-6 Atorvastatin Calcium 40 mg 04/17/25 09:00 04/18/25 08:15 Atorvastatin 40 Mg Tablet PO 40 mg DAILY SPENCER Administration Dextrose 12.5 gm 04/16/25 17:07 Dextrose 50% 25 Gm/50 Ml Syringe IV PUSH PRN PRN Hypoglycemia Protocol Docusate Sodium 100 mg 04/16/25 17:07 Docusate Sodium 100 Mg Capsule PO Q12H PRN Constipation Donepezil HCl 5 mg 04/16/25 21:00 04/18/25 20:59 Donepezil Hcl 5 Mg Tablet PO 5 mg QHS SPENCER Administration Enoxaparin Sodium 40 mg 04/17/25 09:00 04/18/25 08:15 Enoxaparin 40 Mg/0.4 Ml Syringe SUB-Q 40 mg DAILY SPENCER Administration Fenofibrate 145 mg 04/17/25 09:00 04/18/25 08:15 Fenofibrate Nanocrystallized 145 Mg Tablet PO 145 mg QAM SPENCER Administration Fish Oil 1 gm 04/17/25 09:00 04/18/25 08:15 [place] 3 Polyunsat Fatty Acids 1 Gm Cap PO 1 gm DAILY SPENCER Administration Gabapentin 600 mg 04/16/25 22:00 04/19/25 06:17 Gabapentin 300 Mg Capsule PO 600 mg Q8HR SPENCER Administration Glucagon 1 mg 04/16/25 17:07 Glucagon For Inj 1 Mg Vial IM PRN PRN Hypoglycemia Protocol Glucose 15 gm 04/16/25 17:07 Glucose Oral Gel 15 Gm Of Glucse In 37.5 Gm Tube PO PRN PRN Hypoglycemia Protocol Dextrose 1,000 mls @ 100 mls/hr 04/16/25 17:07 Dextrose 5% 1,000 Ml IVPB PRN PRN Hypoglycemia Protocol Insulin Aspart 4 - 8 units 04/17/25 08:00 04/18/25 17:32 Insulin Aspart (*Bkc) 100 Units/Ml SUB-Q Not Given TIDWM [facility] Protocol Insulin Glargine 20 units 04/16/25 21:00 04/18/25 21:00 Insulin Glargine (*Bkc) 100 Units/Ml SUB-Q 20 units HS SPENCER Administration Insulin Human Regular 20 units 04/16/25 17:10 04/18/25 17:32 Insulin Human Regular (*Bkc) 100 Units/Ml SUB-Q 20 units BIDWM SPENCER Administration Levothyroxine Sodium 50 mcg 04/17/25 09:00 04/19/25 06:17 Levothyroxine Sodium 50 Mcg Tablet PO 50 mcg DAILY@0630 SPENCER Administration Lisinopril 2.5 mg 04/17/25 09:00 04/18/25 08:15 Lisinopril 2.5 Mg Tablet PO 2.5 mg DAILY SPENCER Administration Morphine Sulfate 2 mg 04/16/25 17:07 04/17/25 21:47 Morphine Sulfate (*Crx) 2 Mg/Ml Inj IV PUSH 2 mg Q4H PRN Administration Pain Rated 7-10 Polyethylene Glycol 17 gm 04/16/25 17:07 Polyethylene Glycol 3350 17 Gm Powd.Pack PO QAM PRN Constipation Propranolol HCl 20 mg 04/16/25 21:00 04/18/25 21:04 Propranolol Hcl 20 Mg Tablet PO Not Given Q12HR SPENCER Sertraline HCl 200 mg 04/16/25 18:00 04/18/25 17:32 Sertraline Hcl 50 Mg Tablet PO 200 mg QPM SPENCER Administration Radiology Results: ITS Impressions Lumbar Spine CT 04/16/25 13:36 IMPRESSION: 1. There is a acute compression fracture of the superior endplate of the L1 vertebral body with 25% vertebral body height loss. The compression fracture is comminuted. Minimal posterior retropulsion of the posterior superior compression fracture of the L1 vertebral body causing mild narrowing of the spinal canal. 2.Compression fracture of the superior endplate of the L2 vertebral body with 30% vertebral body height loss. No retropulsion of the fracture into the spinal canal. The fracture is likely acute. Attention on follow-up MRI imaging of the lumbar spine. 3. Acute compression fracture of L2 vertebral body which is mildly comminuted with 30% vertebral body height loss. No retropulsion of the fracture into the spinal canal. 4. No other fracture identified. 5. Grossly stable degenerative change at the L4-5 and L5-S1 levels. Consider an MRI of the lumbar spine for further assessment. Ankle X-Ray 04/17/25 12:10 Impression: Distal fibular fracture Lumbar Spine MRI 04/17/25 13:38 IMPRESSION: 1. Acute to subacute L1 burst fracture and chronic compression fractures at T11 and L2-L4. 2. Moderate lumbar spondylosis. Labs Labs: Laboratory Results - last 24 hr 04/18/25 04/18/25 04/18/25 07:51 11:36 15:25 WBC RBC Hgb Hct MCV MCH MCHC RDW Plt Count MPV Sodium Potassium Chloride Carbon Dioxide Anion Gap BUN Creatinine Estim Creat Clear Calc Estimated GFR Glucose POC Capillary Glucose 148 H 157 H 202 H Lactic Acid Calcium Total Bilirubin AST ALT Alkaline Phosphatase Total Protein Albumin TSH (Reflex) 04/18/25 04/18/25 04/18/25 16:36 16:47 20:43 WBC 8.0 RBC 3.63 L Hgb 10.9 L Hct 32.9 L MCV 90.6 MCH 30.0 MCHC 33.1 RDW 12.9 Plt Count 191 MPV 10.3 Sodium 135 L Potassium 4.1 Chloride 105 Carbon Dioxide 22 Anion Gap 8 BUN 26 H Creatinine 1.39 H Estim Creat Clear Calc 53 Estimated GFR 51 L Glucose 186 H POC Capillary Glucose 184 H 160 H Lactic Acid 0.6 L Calcium 8.5 Total Bilirubin 0.8 AST 33 ALT 22 Alkaline Phosphatase 49 Total Protein 6.0 L Albumin 3.3 L TSH (Reflex) 2.200 04/19/25 05:16 WBC 9.3 RBC 3.79 L Hgb 11.4 L Hct 34.4 L MCV 90.8 MCH 30.1 MCHC 33.1 RDW 13.0 Plt Count 186 MPV 9.8 Sodium 138 Potassium 4.3 Chloride 108 H Carbon Dioxide 24 Anion Gap 6 BUN 22 H Creatinine 1.21 Estim Creat Clear Calc 60 Estimated GFR 60 Glucose 92 POC Capillary Glucose Lactic Acid Calcium 9.0 Total Bilirubin AST ALT Alkaline Phosphatase Total Protein Albumin TSH (Reflex) Quality VTE Prophylaxis VTE prophylaxis: pharmacologic ordered
[2025-04-19] MEDS: ENOXAPARIN 40 MG/0.4 ML SYRINGE SUB-Q (09:38)
[2025-04-19] MEDS: FENOFIBRATE NANOCRYSTALLIZED 145 MG TABLET PO (09:39)
[2025-04-19] MEDS: ATORVASTATIN 40 MG TABLET PO (09:39)
[2025-04-19] MEDS: OMEGA 3 POLYUNSAT FATTY ACIDS 1 GM CAP PO (09:40)
[2025-04-19] MEDS: INSULIN HUMAN REGULAR (*BKC) 100 UNITS/ML 20 UNITS SUB-Q ×2 (09:45→18:14)
[2025-04-19] MEDS: INSULIN ASPART (*BKC) 100 UNITS/ML SUB-Q (12:16)
[2025-04-19] MEDS: SODIUM CHLORIDE 0.9% IV 1,000 ML 100 ML IV CONT (14:30)
[2025-04-19] MEDS: SERTRALINE HCL 50 MG TABLET 200 MG PO (18:14)
[2025-04-19] MEDS: PROPRANOLOL HCL 20 MG TABLET PO (21:43)
[2025-04-19] MEDS: DONEPEZIL HCL 5 MG TABLET PO (21:44)
[2025-04-19] MEDS: INSULIN GLARGINE (*BKC) 100 UNITS/ML 20 UNITS SUB-Q (21:45)
[2025-04-20] VITALS (14 sets, daily range): BP systolic 88–121; BP diastolic 58–70; PULSE 62–72; RESP 16–20; TEMP 36.2–36.4; O2SAT 97–98
[2025-04-20] MEDS: HYDROcodone/acetaminophen (*CRX) 5-325 MG TABLET 1 TAB PO ×2 (04:24→13:07)
--- NOTE | 2025-04-20 04:38 | PC.NURSE ---
NO IV FLUIDS RUNNING AT 1900, FOUND ORDER FOR NS 100/HR CONTINUOUS RESTARTED FLUIDS
[2025-04-20] MEDS: SODIUM CHLORIDE 0.9% IV 1,000 ML 100 ML IV CONT (04:40)
[2025-04-20 04:53] LABS: Hematocrit 36.0 % (42.0-52.0); Hemoglobin 11.8 g/dL (14.0-18.0); Mean Corpuscular HGB Conc 32.8 g/dl (32-36); Mean Corpuscular Hemoglobin 30.3 pg (26-34); Mean Corpuscular Volume 92.3 fl (80-100); Platelet Count Result 207 k/mm3 (150-375); Red Blood Count 3.90 M/mm3 (4.6-6.20); White Blood Count 9.9 K/mm3 (4.5-10.0)
[2025-04-20 05:15] LABS: Anion Gap 5 mmol/L (4-12); Blood Urea Nitrogen 18 mg/dL (9-20); Calcium 9.3 mg/dL (8.4-10.2); Carbon Dioxide 26 mmol/L (22-30); Chloride 106 mmol/L (98-107); Estimated CRCL calculation 63 ml/min; Estimated Glomerular Filt Rate > 60; Glucose 116 mg/dL (65-110); Potassium 4.2 mmol/L (3.4-5.0); Sodium 137 mmol/L (137-145)
[2025-04-20] MEDS: GABAPENTIN 300 MG CAPSULE 600 MG PO ×3 (05:59→21:36)
[2025-04-20] MEDS: LEVOTHYROXINE SODIUM 50 MCG TABLET PO (05:59)
[2025-04-20] MEDS: ENOXAPARIN 40 MG/0.4 ML SYRINGE SUB-Q (08:37)
[2025-04-20] MEDS: OMEGA 3 POLYUNSAT FATTY ACIDS 1 GM CAP PO (08:37)
[2025-04-20] MEDS: FENOFIBRATE NANOCRYSTALLIZED 145 MG TABLET PO (08:38)
[2025-04-20] MEDS: ATORVASTATIN 40 MG TABLET PO (08:38)
[2025-04-20] MEDS: PROPRANOLOL HCL 20 MG TABLET PO (08:38)
[2025-04-20] MEDS: INSULIN HUMAN REGULAR (*BKC) 100 UNITS/ML 20 UNITS SUB-Q ×2 (08:39→17:37)
--- NOTE | 2025-04-20 09:31 | PC.NURSE ---
Patient is refusing help to the bathroom from [employer]. Patient will not safely ambulate and told tech to get out.
--- NOTE | 2025-04-20 12:17 | P.PNIM_ITS ---
Progress Note: A&P Assessment and Plan (1) Syncope and collapse: Code(s): R55 - Syncope and collapse Status: Chronic Assessment and Plan: Ongoing history of syncope with most recent episode yesterday, 04/15, resulting in a fall. States syncope has become more frequent. States previous cardiac workup outpatient several years ago was unremarkable. Per patient this was performed at [facility] however unable to find prior workup on chart review besides a holter monitor in 01/2024. Holter monitor showing occasional PVC otherwise unremarkable. - EKG sinus rhythm with HR 69 - orthostatic vital signs ordered - head ct unremarkable - echo ordered - tele ordered - fall precautions reports had been on propanolol for a while and recently was increased in dose for shakiness and tremors (2) Closed right fibular fracture: Qualifiers: Encounter type: subsequent encounter Fibula location: distal Fracture morphology: other fracture Fracture healing: with routine healing Qualified Code(s): S82.831D - Other fracture of upper and lower end of right fibula, subsequent encounter for closed fracture with routine healing Code(s): S82.401A - Unspecified fracture of shaft of right fibula, initial encounter for closed fracture Status: Acute Assessment and Plan: - Foot XR, R, 04/16: Minimally displaced oblique fracture of the distal metaphyseal region of the right fibula. - splint applied to the RLE in the ED on 04/16 - analgesics prn - PT/OT and care coordination for placement as the patient has concurrent L- Spine fractures - ortho consulted DR Tellez saw pt last night: 65 yr old male with Right Ankle Stable fibular fracture. - recommend toe touch weight bearing - follow up in 2 weeks, - Non-operative (3) Compression fracture of lumbar vertebra: Qualifiers: Encounter type: subsequent encounter Fracture healing: with routine healing Lumbar vertebra fracture level: L2 Qualified Code(s): S32.020D - Wedge compression fracture of second lumbar vertebra, subsequent encounter for fracture with routine healing Code(s): S32.000A - Wedge compression fracture of unspecified lumbar vertebra, initial encounter for closed fracture Status: Acute Assessment and Plan: - L-Spine CT, 04/16: 1. There is a acute compression fracture of the superior endplate of the L1 vertebral body with 25% vertebral body height loss. The compression fracture is comminuted. Minimal posterior retropulsion of the posterior superior compression fracture of the L1 vertebral body causing mild narrowing of the spinal canal. 2.Compression fracture of the superior endplate of the L2 vertebral body with 30% vertebral body height loss. No retropulsion of the fracture into the spinal canal. The fracture is likely acute. Attention on follow-up MRI imaging of the lumbar spine. 3. Acute compression fracture of L2 vertebral body which is mildly comminuted with 30% vertebral body height loss. No retropulsion of the fracture into the spinal canal. 4. No other fracture identified. 5. Grossly stable degenerative change at the L4-5 and L5-S1 levels - TLSO brace placed, to be worn at all times when out of bed. - MRI L Spine - analgesics prn - neurosurgery consulted no bending, twisting, lifting >5-10 lb outpatient follow-up in 6 weeks bone health optimization with PCP stable-continue to follow recommendations for neurosurgery TLSO brace (4) Clavicle fracture: Qualifiers: Clavicle location: unspecified part of clavicle Encounter type: initial encounter Fracture alignment: displaced Fracture type: closed Laterality: right Qualified Code(s): S42.001A - Fracture of unspecified part of right clavicle, initial encounter for closed fracture Code(s): S42.009A - Fracture of unspecified part of unspecified clavicle, initial encounter for closed fracture Status: Inactive Assessment and Plan: Chest XR: Still ununited mildly displaced fracture of the lateral right clavicle is increasing sclerosis along the fracture plane suggesting progression towards nonunion. Chronic, previously seen on 01/26/2025 shoulder xr (5) Type 2 diabetes mellitus with peripheral neuropathy: Code(s): E11.42 - Type 2 diabetes mellitus with diabetic polyneuropathy Status: Chronic Assessment and Plan: - hypoglycemia protocol - POC blood glucose ACHS - home medication: Glargine 20 units q.p.m., regular insulin 20 units b.i.d. Hold Metformin in case of need for contrast. - correct regimen ordered - Continue Glargine 20 units q.p.m., regular insulin 20 units b.i.d., started on high dose TIDWM, based off BMI - A1C 7.4% on 02/08/2025 Glucose well controlled. Continue to monitor. (6) COPD (chronic obstructive pulmonary disease): Qualifiers: COPD type: unspecified COPD Qualified Code(s): J44.9 - Chronic obstructive pulmonary disease, unspecified Code(s): J44.9 - Chronic obstructive pulmonary disease, unspecified Status: Chronic Assessment and Plan: - no current evidence of exacerbation - continue home medications (7) Hypotension: Code(s): I95.9 - Hypotension, unspecified Status: Acute Assessment and Plan: had an episode of hypotension last night, as low as 70/35- was alert and oriented, just felt weak -received 1 l IV fluids-which improved his BP lactic acid, tsh, bc were collected- bc pending, but everything else is unremarkable -hr stable, low suspicious for any shock - monitor closely pt is at high fall risk hold lisinopril and propanolol for now Time Spent With Patient Time with patient: 25 - 35 minutes Subjective Date/time seen: 04/20/25 12:17 Interval history: 65 y/o M with PMH of benign essential tremor, hypothyroidism, depression, diabetes, COPD, and benign positional vertigo presents to the hospital following a syncopal episode resulting in multiple falls leading to back pain and foot pain. Pt is seen and examined. continues to endorse back pain. TLSO brace recommended per Neurosurgery. He denies any tingling/numbness/shooting pain to the lower extremity. Patient stats that pain is currently well controlled. Of note, pt had hypotensive episodes last night- with BP as low as 70/35. Received 1l of IV fluids. He felt somewhat weak but was alert and oriented. His BP had been stabilized and improved. Patient notes that his syncope has been increasing in frequency. States previous cardiac workup outpatient several years ago was unremarkable. Per patient this was performed at [facility] however unable to find prior wo rkup on chart review besides a holter monitor in 01/2024. Holter monitor showing occasional PVC otherwise unremarkable. Patient does note that the syncope occurs not long after changing positions, orthostatic vital signs ordered. He has no other complaints denying chest pain, palpitations, nausea/vomiting, shortness of breath and abdominal pain. 04/19 pt is seen and examined. pain is well controlled. Dr Tellez saw him and no acute interventions. 04/20 BP stable. feeling better overall, working with PT/OT Review of Systems Review of Systems: All systems reviewed & are unremarkable except as noted in HPI and below Exam Narrative: General: male in no acute respiratory distress who is nontoxic appearing. HEENT: Normocephalic. Atraumatic. Extraocular movement intact. Sclera clear and anicteric. No facial asymmetry. Chest: Lungs are clear to auscultation bilaterally. No wheezes or crackles. CV: Heart was regular rate and rhythm. S1/S2. No murmurs, gallops, or rubs. Abd: Abdomen was soft. Nontender. Nondistended. Positive bowel sounds. Ext: No clubbing, cyanosis, or edema. DP pulses bilaterally. Neuro: Patient is alert and oriented x3. Strength is 5/5 in both upper and lower extremities. Speech is clear. Const: General: comfortable and no acute distress Other: , male, nontoxic appearance HENMT: Face/Nose/Sinus: Normal nares present Mouth: Yes moist mucous membranes Eyes: General: appearance normal, both eyes and all related structures Sclera: sclerae normal Pupils: Equal, round and reactive pupils present EOM: EOMs intact bilaterally Resp: Effort & Inspection: normal respiratory effort Auscultation: clear to auscultation bilaterally Cardio: Rate: regular rate Rhythm: regular rhythm Other: S1-S2 present without murmur, rub, ectopy GI: Other: Abdomen soft, nondistended, nontender. Normoactive bowel sounds in all quadrants. Back/Spine/Pelvis: Thoracic/Lumbar Spine: thoracic spinal tenderness (Worsens with movement) Skin: General skin exam: normal color and no rashes or lesions noted Wounds: no wounds Neuro: Cranial nerves: Yes Equal, round and reactive pupils present Speech: normal speech Motor exam (neuro): 5/5 motor strength present throughout Sensory Exam: normal sensation Other: A&O x4 Extrem: Other: Brace in place to right foot. Cap refill brisk. Denies numbness. Psych: Mental Status: mental status grossly normal Affect: normal affect Other: Good insight and judgment, pleasant Objective Data Vital Signs Vital Signs: Vital Signs - 24 hr 04/19/25 14:00 04/19/25 16:00 04/19/25 18:24 Temperature 97.7 F Pulse Rate 76 77 Respiratory Rate 18 Blood Pressure 100/58 L 109/54 L Pulse Oximetry 96 Oxygen Delivery 04/19/25 20:00 04/19/25 21:30 04/19/25 21:43 Temperature 98 F Pulse Rate 83 70 70 Respiratory Rate 20 Blood Pressure 122/53 L Pulse Oximetry 96 Oxygen Delivery 04/19/25 23:26 04/20/25 00:00 04/20/25 04:00 Temperature 98.3 F Pulse Rate 70 72 68 Respiratory Rate 18 Blood Pressure 123/69 Pulse Oximetry 99 Oxygen Delivery 04/20/25 05:37 04/20/25 08:25 04/20/25 08:25 Temperature 97.6 F Pulse Rate 63 62 Respiratory Rate 20 Blood Pressure 116/58 L Pulse Oximetry 98 Oxygen Delivery Room Air 04/20/25 08:38 Temperature Pulse Rate 69 Respiratory Rate Blood Pressure Pulse Oximetry Oxygen Delivery Intake/Output Intake/Output: Intake & Output 04/17/25 04/18/25 04/19/25 04/20/25 23:59 23:59 23:59 23:59 Intake Total 1360 1135 1335 760 Output Total 875 Balance 485 1135 1335 760 Meds/Results Medications: Active Medications Generic Name Dose Route Start Last Admin Trade Name Freq PRN Reason Stop Dose Admin Acetaminophen 650 mg 04/16/25 17:07 Acetaminophen 325 Mg Tablet PO Q6H PRN Mild Pain (1-3) or Fever Hydrocodone Bitart/Acetaminophen 1 tab 04/16/25 17:07 04/20/25 04:24 Hydrocodone/Acetaminophen (*Crx) 5-325 Mg Tablet PO 1 tab Q6H PRN Administration Pain Rated 4-6 Atorvastatin Calcium 40 mg 04/17/25 09:00 04/20/25 08:38 Atorvastatin 40 Mg Tablet PO 40 mg DAILY SPENCER Administration Dextrose 12.5 gm 04/16/25 17:07 Dextrose 50% 25 Gm/50 Ml Syringe IV PUSH PRN PRN Hypoglycemia Protocol Docusate Sodium 100 mg 04/16/25 17:07 Docusate Sodium 100 Mg Capsule PO Q12H PRN Constipation Donepezil HCl 5 mg 04/16/25 21:00 04/19/25 21:44 Donepezil Hcl 5 Mg Tablet PO 5 mg QHS SPENCER Administration Enoxaparin Sodium 40 mg 04/17/25 09:00 04/20/25 08:37 Enoxaparin 40 Mg/0.4 Ml Syringe SUB-Q 40 mg DAILY SPENCER Administration Fenofibrate 145 mg 04/17/25 09:00 04/20/25 08:38 Fenofibrate Nanocrystallized 145 Mg Tablet PO 145 mg QAM SPENCER Administration Fish Oil 1 gm 04/17/25 09:00 04/20/25 08:37 [place] 3 Polyunsat Fatty Acids 1 Gm Cap PO 1 gm DAILY SPENCER Administration Gabapentin 600 mg 04/16/25 22:00 04/20/25 05:59 Gabapentin 300 Mg Capsule PO 600 mg Q8HR SPENCER Administration Glucagon 1 mg 04/16/25 17:07 Glucagon For Inj 1 Mg Vial IM PRN PRN Hypoglycemia Protocol Glucose 15 gm 04/16/25 17:07 Glucose Oral Gel 15 Gm Of Glucse In 37.5 Gm Tube PO PRN PRN Hypoglycemia Protocol Dextrose 1,000 mls @ 100 mls/hr 04/16/25 17:07 Dextrose 5% 1,000 Ml IVPB PRN PRN Hypoglycemia Protocol Sodium Chloride 1,000 mls @ 100 mls/hr 04/19/25 13:50 04/20/25 04:40 Normal Saline Iv IV CONT 100 mls/hr .Q10H SPENCER Administration Insulin Aspart 4 - 8 units 04/17/25 08:00 04/20/25 07:56 Insulin Aspart (*Bkc) 100 Units/Ml SUB-Q Not Given TIDWM SPENCER Protocol Insulin Glargine 20 units 04/16/25 21:00 04/19/25 21:45 Insulin Glargine (*Bkc) 100 Units/Ml SUB-Q 20 units HS SPENCER Administration Insulin Human Regular 20 units 04/16/25 17:10 04/20/25 08:39 Insulin Human Regular (*Bkc) 100 Units/Ml SUB-Q 20 units BIDWM SPENCER Administration Levothyroxine Sodium 50 mcg 04/17/25 09:00 04/20/25 05:59 Levothyroxine Sodium 50 Mcg Tablet PO 50 mcg DAILY@0630 SPENCER Administration Lisinopril 2.5 mg 04/17/25 09:00 04/20/25 08:38 Lisinopril 2.5 Mg Tablet PO 2.5 mg DAILY SPENCER Administration Morphine Sulfate 2 mg 04/16/25 17:07 04/17/25 21:47 Morphine Sulfate (*Crx) 2 Mg/Ml Inj IV PUSH 2 mg Q4H PRN Administration Pain Rated 7-10 Polyethylene Glycol 17 gm 04/16/25 17:07 Polyethylene Glycol 3350 17 Gm Powd.Pack PO QAM PRN Constipation Propranolol HCl 20 mg 04/16/25 21:00 04/20/25 08:38 Propranolol Hcl 20 Mg Tablet PO 20 mg Q12HR SPENCER Administration Sertraline HCl 200 mg 04/16/25 18:00 04/19/25 18:14 Sertraline Hcl 50 Mg Tablet PO 200 mg QPM SPENCER Administration Radiology Results: ITS Impressions Lumbar Spine CT 04/16/25 13:36 IMPRESSION: 1. There is a acute compression fracture of the superior endplate of the L1 vertebral body with 25% vertebral body height loss. The compression fracture is comminuted. Minimal posterior retropulsion of the posterior superior compression fracture of the L1 vertebral body causing mild narrowing of the spinal canal. 2.Compression fracture of the superior endplate of the L2 vertebral body with 30% vertebral body height loss. No retropulsion of the fracture into the spinal canal. The fracture is likely acute. Attention on follow-up MRI imaging of the lumbar spine. 3. Acute compression fracture of L2 vertebral body which is mildly comminuted with 30% vertebral body height loss. No retropulsion of the fracture into the spinal canal. 4. No other fracture identified. 5. Grossly stable degenerative change at the L4-5 and L5-S1 levels. Consider an MRI of the lumbar spine for further assessment. Ankle X-Ray 04/17/25 12:10 Impression: Distal fibular fracture Lumbar Spine MRI 04/17/25 13:38 IMPRESSION: 1. Acute to subacute L1 burst fracture and chronic compression fractures at T11 and L2-L4. 2. Moderate lumbar spondylosis. Labs Labs: Laboratory Results - last 24 hr 04/19/25 04/19/25 04/20/25 17:09 21:40 04:38 WBC 9.9 RBC 3.90 L Hgb 11.8 L Hct 36.0 L MCV 92.3 MCH 30.3 MCHC 32.8 RDW 13.0 Plt Count 207 MPV 9.8 Sodium 137 Potassium 4.2 Chloride 106 Carbon Dioxide 26 Anion Gap 5 BUN 18 Creatinine 1.15 Estim Creat Clear Calc 63 Estimated GFR > 60 Glucose 116 H POC Capillary Glucose 159 H 161 H Calcium 9.3 04/20/25 07:52 WBC RBC Hgb Hct MCV MCH MCHC RDW Plt Count MPV Sodium Potassium Chloride Carbon Dioxide Anion Gap BUN Creatinine Estim Creat Clear Calc Estimated GFR Glucose POC Capillary Glucose 104 Calcium Quality VTE Prophylaxis VTE prophylaxis: pharmacologic ordered
--- NOTE | 2025-04-20 17:00 | PC.NURSE ---
TRACEE Reagan requested RN to turn off fluids around 1400 and continue to monitor BP. FLOOR SCRUBBER also put BP meds on hold.
[2025-04-20] MEDS: SERTRALINE HCL 50 MG TABLET 200 MG PO (17:37)
--- NOTE | 2025-04-20 18:18 | PC.NURSE ---
Patient has positive orthos and is demanding to go to toilet regardless of BP. RN asked to take BP before taking patient to bathroom and patient refused. RN educated patient on risks of ambulating with low BP.
[2025-04-20] MEDS: INSULIN GLARGINE (*BKC) 100 UNITS/ML 20 UNITS SUB-Q (21:38)
[2025-04-20] MEDS: DONEPEZIL HCL 5 MG TABLET PO (21:38)
[2025-04-21] VITALS: PULSE 69
[2025-04-21 04:00] VITALS: PULSE 78
[2025-04-21] MEDS: HYDROcodone/acetaminophen (*CRX) 5-325 MG TABLET 1 TAB PO (04:56)
[2025-04-21] MEDS: GABAPENTIN 300 MG CAPSULE 600 MG PO ×2 (04:57→13:26)
[2025-04-21] MEDS: LEVOTHYROXINE SODIUM 50 MCG TABLET PO (04:57)
[2025-04-21 06:00] VITALS: BP 120/60; PULSE 66; RESP 16; TEMP 36.4; O2SAT 96
[2025-04-21 08:00] VITALS: PULSE 63; PULSE 90
--- NOTE | 2025-04-21 08:03 | PM.DS ---
DS: Admitting Diagnosis Discharge Date 04/21 Admitting Diagnosis fall DS: Discharge Diagnosis Discharge Diagnosis (1) Syncope and collapse: Code(s): R55 - Syncope and collapse Status: Chronic (2) Closed right fibular fracture: Qualifiers: Encounter type: subsequent encounter Fibula location: distal Fracture healing: with routine healing Fracture morphology: other fracture Qualified Code(s): S82.831D - Other fracture of upper and lower end of right fibula, subsequent encounter for closed fracture with routine healing Code(s): S82.401A - Unspecified fracture of shaft of right fibula, initial encounter for closed fracture Status: Acute (3) Compression fracture of lumbar vertebra: Qualifiers: Encounter type: subsequent encounter Fracture healing: with routine healing Lumbar vertebra fracture level: L2 Qualified Code(s): S32.020D - Wedge compression fracture of second lumbar vertebra, subsequent encounter for fracture with routine healing Code(s): S32.000A - Wedge compression fracture of unspecified lumbar vertebra, initial encounter for closed fracture Status: Acute (4) Clavicle fracture: Qualifiers: Clavicle location: unspecified part of clavicle Encounter type: initial encounter Fracture alignment: displaced Fracture type: closed Laterality: right Qualified Code(s): S42.001A - Fracture of unspecified part of right clavicle, initial encounter for closed fracture Code(s): S42.009A - Fracture of unspecified part of unspecified clavicle, initial encounter for closed fracture Status: Inactive (5) Type 2 diabetes mellitus with peripheral neuropathy: Code(s): E11.42 - Type 2 diabetes mellitus with diabetic polyneuropathy Status: Chronic (6) COPD (chronic obstructive pulmonary disease): Qualifiers: COPD type: unspecified COPD Qualified Code(s): J44.9 - Chronic obstructive pulmonary disease, unspecified Code(s): J44.9 - Chronic obstructive pulmonary disease, unspecified Status: Chronic (7) Hypotension: Code(s): I95.9 - Hypotension, unspecified Status: Acute DS: Summary Hospital Course Hospital Course: 65 y/o M with PMH of benign essential tremor, hypothyroidism, depression, diabetes, COPD, and benign positional vertigo presents to the hospital following a syncopal episode resulting in multiple falls leading to back pain and foot pain. He reports that the dose of propranolol was recently increased due to tremors and he was feeling more light headed. He never followed up with neurology. There is a concern for non compliance with medication and follow up karine. We were holding his propanolol due to lower HR and BP. He is instructed to f/u with neurology as soon as possible to address regimen/doses. His light headedness very likely be due to propanolol and recent dose increase. Dr Tellez saw him for Closed right ankle fracture- recommend toe touch weight bearing - follow up in 2 weeks, - Non-operative. Neurosurgery was consulted: Compression fracture of lumbar vertebra: Assessment: Acute L1 superior endplate compression fracture with 20-25% height loss and approximately 4 mm retropulsion into the spinal canal resulting in mild spinal canal stenosis. There are chronic compression fractures of L2, L3, and L4 which are grossly unchanged from patient's 01/26/2025 CT scan. - Obtain MRI lumbar spine - LSO brace to be worn at all times when out of bed - no bending, twisting, lifting >5-10 lb - syncopal workup per Medicine Service - outpatient follow-up in 6 weeks - bone health optimization with PCP. Status at Discharge Functional status at discharge: uses cane/walker Overall status at discharge: patient is progressing back to baseline Time Spent with Patient Time attestation: Total time spent providing and/or coordinating discharge services: Time spent: Greater than 30 minutes Exam Narrative: General: male in no acute respiratory distress who is nontoxic appearing. HEENT: Normocephalic. Atraumatic. Extraocular movement intact. Sclera clear and anicteric. No facial asymmetry. Chest: Lungs are clear to auscultation bilaterally. No wheezes or crackles. CV: Heart was regular rate and rhythm. S1/S2. No murmurs, gallops, or rubs. Abd: Abdomen was soft. Nontender. Nondistended. Positive bowel sounds. Ext: No clubbing, cyanosis, or edema. DP pulses bilaterally. Neuro: Patient is alert and oriented x3. Strength is 5/5 in both upper and lower extremities. Speech is clear. Const: General: comfortable and no acute distress Other: , male, nontoxic appearance HENMT: Face/Nose/Sinus: Normal nares present Mouth: Yes moist mucous membranes Eyes: General: appearance normal, both eyes and all related structures Sclera: sclerae normal Pupils: Equal, round and reactive pupils present EOM: EOMs intact bilaterally Resp: Effort & Inspection: normal respiratory effort Auscultation: clear to auscultation bilaterally Cardio: Rate: regular rate Rhythm: regular rhythm Other: S1-S2 present without murmur, rub, ectopy GI: Other: Abdomen soft, nondistended, nontender. Normoactive bowel sounds in all quadrants. Back/Spine/Pelvis: Thoracic/Lumbar Spine: thoracic spinal tenderness (Worsens with movement) Skin: General skin exam: normal color and no rashes or lesions noted Wounds: no wounds Neuro: Cranial nerves: Yes Equal, round and reactive pupils present Speech: normal speech Motor exam (neuro): 5/5 motor strength present throughout Sensory Exam: normal sensation Other: A&O x4 Extrem: Other: Brace in place to right foot. Cap refill brisk. Denies numbness. Psych: Mental Status: mental status grossly normal Affect: normal affect Other: Good insight and judgment, pleasant DS: Data Data Completed and Pending Labs on day of discharge: Labs from last 24 hours 04/20/25 04/20/25 04/20/25 21:06 17:07 12:23 POC Capillary Glucose 153 H 166 H 166 H Preliminary micro results at discharge 04/18/25 16:27 Blood Culture - Preliminary Blood 04/18/25 16:36 Blood Culture - Preliminary Blood Discharge Plan Discharge Attending physician on discharge: Beau Aguayo Consulting providers: Cheryl Garcia; Franny Gardner; Tommy Tellez Discharging Clinician: Merary Wade Patient Disposition: Home Activity: may shower Diet: heart healthy Discharge Instructions: DR Tellez saw you for Closed right ankle fracture- recommend toe touch weight bearing - follow up in 2 weeks, . Please call and make an karine. As we discussed, please monitor your Blood pressure every morning and keep log. F/u with pcp. Please hold your propranolol until discussed with neurology Patient Instructions: Antibiotic Form Patient Language: Peruvian Stand Alone Forms: General Discharge Information Follow-up/Referrals: Tommy Tellez MD [Physician, Orthopedics] - 2 Weeks Nazario Almodovar DO [Primary Care Provider, Internal Medicine] - 2 Weeks Discharge Medications: New hydrocodone-acetaminophen 5-325 mg Tablet 1 tablet PO Q6H PRN (Reason: Pain Rated 4-6) Qty: 30 0RF Continued (DME) pen needle, diabetic [BD Ultra-Fine Short Pen Needle] 31 gauge x 5/16 needle See Rx Instructions .ROUTE .MEDSUPPLY Qty: 1,200 Rx Instructions: As directed ([facility]) lancets [TRUEplus Lancets] 26 gauge misc See Rx Instructions .ROUTE .MEDSUPPLY Qty: 100 Rx Instructions: As directed (DME) Dexcom G6 Sensor Device See Rx Instructions .Route Qty: 3 0RF Rx Instructions: As directed ([facility]) Dexcom G6 Trimming Machine Set Up Operator Misc See Rx Instructions .Route Qty: 1 0RF Rx Instructions: As directed ([facility]) Dexcom G6 Transmitter Device See Rx Instructions .Route Qty: 1 0RF Rx Instructions: As directed atorvastatin 40 mg tablet 40 mg PO DAILY Qty: 90 3RF insulin glargine [Basaglar KwikPen U-100 Insulin] 100 unit/mL (3 mL) insulin pen 20 unit SUB-Q QPM ([facility]) OneTouch Ultra Test Strip See Rx Instructions .Route Qty: 100 5RF Rx Instructions: Use to check bloodsugars TID (DME) BD Insulin Syringe U-500 1/2 mL 31 gauge x 15/64 syringe See Rx Instructions .ROUTE .MEDSUPPLY Qty: 200 1RF Rx Instructions: Use syringes twice daily ([facility]) insulin syringe-needle U-100 [BD Insulin Syringe Ultra-Fine] 0.5 mL 31 gauge x 5/16 syringe See Rx Instructions .ROUTE .MEDSUPPLY Qty: 400 1RF Rx Instructions: Use one syringe TID with insulin ([facility]) insulin syringe-needle U-100 [TRUEplus Insulin] 1 mL 31 gauge x 5/16 syringe See Rx Instructions .Route Qty: 100 0RF Rx Instructions: To inject insulin 4 times daily sertraline 100 mg tablet 200 mg PO QPM donepezil [Aricept] 5 mg tablet 5 mg PO QHS omega-3 fatty acids 1,000 mg capsule 1,000 mg PO DAILY gabapentin 600 mg tablet 600 mg PO TID Qty: 270 1RF metformin 500 mg tablet extended release 24 hr 1,000 mg PO BID Qty: 360 1RF levothyroxine [Synthroid] 50 mcg tablet 50 mcg PO DAILY Qty: 30 3RF Humulin R Regular U-100 Insuln 100 unit/mL solution See Rx Instructions .ROUTE .COMPLEX Qty: 10 5RF Dose Instruction: INJECT 20 UNITS SUBCUTANEOUSLY TWICE DAILY Rx Instructions: INJECT 20 UNITS SUBCUTANEOUSLY TWICE DAILY lisinopril 2.5 mg tablet See Rx Instructions .ROUTE .COMPLEX Qty: 90 1RF Dose Instruction: Take 1 tablet by mouth once daily Rx Instructions: Take 1 tablet by mouth once daily fenofibrate 160 mg tablet 160 mg PO DAILY Qty: 90 1RF Held propranolol 20 mg tablet 20 mg PO Q12H Hold Instructions: Resume on 05/09/25. hold until instructed otherwise per neurology Date of admission: 04/16/25 15:11 Primary Care Provider: Nazario Almodovar Admitting Provider: Meek Goldstein Attending physician on admission: Meek Goldstein Condition: Stable Quality VTE Prophylaxis VTE prophylaxis: pharmacologic ordered Hospitalist MIPS Heart Failure (Exclusion) Patient has history of Heart Transplant or Left Ventricular Assistive Device?: No IF YES, STOP HERE Heart Failure (Qualifier) Patient has current or prior documentation of LVEF less than or equal to 40%, or mod/servere depressed LVSF?: No IF NO, STOP HERE
[2025-04-21] MEDS: ACETAMINOPHEN 325 MG TABLET 650 MG PO (08:17)
[2025-04-21] MEDS: INSULIN HUMAN REGULAR (*BKC) 100 UNITS/ML 20 UNITS SUB-Q (08:18)
[2025-04-21] MEDS: ATORVASTATIN 40 MG TABLET PO (08:22)
[2025-04-21] MEDS: ENOXAPARIN 40 MG/0.4 ML SYRINGE SUB-Q (08:22)
[2025-04-21] MEDS: OMEGA 3 POLYUNSAT FATTY ACIDS 1 GM CAP PO (08:22)
[2025-04-21] MEDS: FENOFIBRATE NANOCRYSTALLIZED 145 MG TABLET PO (08:25)
[2025-04-21 12:00] VITALS: PULSE 67; PULSE 91
[2025-04-21 13:53] VITALS: BP 112/62; PULSE 65; RESP 18; TEMP 36.1; O2SAT 97
== END 2025-04-21 14:45 | disposition home or self-care (01) ==
LOC: ANHED 15:25 → ANH2MED 04-17 06:48
PROVIDERS: Nurse Practitioner; Student in an Organized Health Care Education/Training Program; Admitting Provider Internal Medicine; Emergency Provider Emergency Medicine; PCP Internal Medicine; Visit Provider General Practice
DX: S82.831A Other fracture of upper and lower end of right fibula, initial encounter for closed fracture (principal); S32.011A Stable burst fracture of first lumbar vertebra, initial encounter for closed fracture; S32.040A Wedge compression fracture of fourth lumbar vertebra, initial encounter for closed fracture; S32.030A Wedge compression fracture of third lumbar vertebra, initial encounter for closed fracture; S32.020A Wedge compression fracture of second lumbar vertebra, initial encounter for closed fracture; S42.031K Displaced fracture of lateral end of right clavicle, subsequent encounter for fracture with nonunion; R55 Syncope and collapse; W18.30XA Fall on same level, unspecified, initial encounter; M48.061 Spinal stenosis, lumbar region without neurogenic claudication; M47.896 Other spondylosis, lumbar region; M51.362 Other intervertebral disc degeneration, lumbar region with discogenic back pain and lower extremity pain; M25.78 Osteophyte, vertebrae; H81.10 Benign paroxysmal vertigo, unspecified ear; I95.9 Hypotension, unspecified; E03.9 Hypothyroidism, unspecified; E11.42 Type 2 diabetes mellitus with diabetic polyneuropathy; Z79.4 Long term (current) use of insulin; Z79.84 Long term (current) use of oral hypoglycemic drugs; J44.9 Chronic obstructive pulmonary disease, unspecified; R09.89 Other specified symptoms and signs involving the circulatory and respiratory systems; R41.3 Other amnesia; F33.9 Major depressive disorder, recurrent, unspecified; F41.9 Anxiety disorder, unspecified; Z98.890 Other specified postprocedural states; Z87.891 Personal history of nicotine dependence; Z81.1 Family history of alcohol abuse and dependence; Z83.3 Family history of diabetes mellitus
CPT/HCPCS: 29515; 36415; 72131; 72148; 73610; 80048; 80053; 82948; 83605; 84443; 85025; 85027; 87040; 93005; 96360; 96361; 96372; 96374; 96376; 97110; 97116; 97162; 97166; 97530; 97535; 99285; A9270; G0378; J1650; J1815; J2270; J7030; J7050; J7120

== ENCOUNTER 2025-07-09 21:03 | Emergency (ER) | payer OTHER, SELFPAY ==
--- NOTE | ~2025-07-09 | CT_ITS ---
CT abdomen pelvis w con Clinical History: abdominal pain . Comparison: CT abdomen pelvis 06/05/2024 Technique: Axial images lung bases to symphysis pubis 100 mL Omnipaque 350 Coronal, sagittal reformats CT images acquired with automatic exposure control for dose reduction DLP: 411 mGy-cm Findings: Lung bases: Clear. Visualized heart and pericardium: Unremarkable. Liver: Cirrhosis. Enlarged. Steatosis. Portal hypertension. Gallbladder: Unremarkable. Spleen: Unremarkable. Pancreas: Unremarkable. Adrenal glands: Unremarkable. Kidneys: Right kidney- No hydronephrosis. No renal stones. Left kidney- No hydronephrosis. 10 mm stone. Distal esophagus/stomach: Unremarkable. Small bowel loops: Normal caliber and wall thickness. Colon: Diverticula. Apparent mild wall thickening. Normal RLQ appendix. Nodes: No enlarged nodes. Peritoneum: Trace ascites. No free air. Urinary bladder: Wall thickening. Prostate: Unremarkable. Bones: L1 compression fracture. Superior endplate height loss L2, L3, L4. Soft tissues: Unremarkable. Aorta: No aneurysm or dissection. IVC: Unremarkable. Main portal vein/SMV/splenic vein: Patent. Splenorenal shunt. IMPRESSION: 1. Minimal colitis possible. 2. Otherwise no acute inflammatory process. 3. Multiple additional findings as above. Reviewed, dictated and finalized at location [employer]
[2025-07-09 21:20] VITALS: BP 113/64; PULSE 76; RESP 20; TEMP 36.4; O2SAT 100
[2025-07-09 23:20] LABS: Add Urine Microscopic? YES; Appearance Urine Clear (Clear); Glucose Urine UA Negative (Negative); Leukocyte Esterase Ur Trace LEU/UL (Negative); Nitrate Urine Negative (Negative); Non Pathogenic Casts 0-2; Specific Grav Ur 1.013 (1.001-1.035)
[2025-07-09 23:47] LABS: Influenza A QL RT-PCR Negative (Negative); Influenza B QL RT-PCR Negative (Negative); RSV RNA, RT-PCR Negative (Negative); SARS-CoV-2 RNA PCR Negative (Negative)
[2025-07-09 23:48] LABS: Hematocrit 36.8 % (42.0-52.0); Hemoglobin 12.3 g/dL (14.0-18.0); Immature Granulocyte Percent A 0.3 % (0-0.5); Lymphocytes Absolute Auto 1.45 K/mm3 (0.9-3.2); Mean Corpuscular HGB Conc 33.4 g/dl (32-36); Mean Corpuscular Hemoglobin 30.1 pg (26-34); Mean Corpuscular Volume 90.2 fl (80-100); Nucleated Red Blood Cells Absolute Auto 0.000 K/mm3 (0.0-0.012); Nucleated Red Blood Cells Perc 0.0 % (0.0-0.2); Platelet Count Result 161 k/mm3 (150-375); Red Blood Count 4.08 M/mm3 (4.6-6.20); White Blood Count 9.1 K/mm3 (4.5-10.0)
[2025-07-10 00:02] LABS: Alanine Aminotransferase 31 U/L (6-50); Albumin Level 3.8 g/dL (3.5-5.1); Alkaline Phosphatase 67 U/L (38-126); Anion Gap 14 mmol/L (4-12); Aspartate Amino Transferase 42 U/L (17-59); Bilirubin,Total 1.5 mg/dL (0.2-1.3); Blood Urea Nitrogen 10 mg/dL (9-20); Calcium 8.5 mg/dL (8.4-10.2); Carbon Dioxide 18 mmol/L (22-30); Chloride 106 mmol/L (98-107); Estimated CRCL calculation 58 ml/min; Estimated Glomerular Filt Rate > 60; Glucose 83 mg/dL (65-110); Lipase 374 U/L (23-300); Potassium 3.5 mmol/L (3.4-5.0); Sodium 138 mmol/L (137-145); Total Protein 6.6 g/dL (6.3-8.2)
[2025-07-10 01:47] VITALS: BP 123/62; PULSE 86
[2025-07-10 01:48] VITALS: BP 118/72; PULSE 93
[2025-07-10 01:53] VITALS: BP 95/74; PULSE 95
[2025-07-10] MEDS: PROCHLORPERAZINE EDISYLATE 10 MG/2 ML VIAL IV PUSH (02:59)
[2025-07-10] MEDS: SODIUM CHLORIDE 0.9% IV 1,000 ML 999 ML IV CONT (02:59)
--- NOTE | 2025-07-10 05:15 | ED.GENADULT ---
HPI - General Adult General Chief complaint: Nausea/Vomiting/Diarrhea Stated complaint: N/V, concern for hypoglycemia Time Seen by Provider: 07/10/25 01:46 History of Present Illness HPI narrative: patient is a 65-year-old gentleman presents emergency department chief complaint of nausea patient reports that he just left AMA from [place] after he was there since Wednesday patient reports he had some issues with hypoglycemia head there were having issues with controlling his blood pressure the patient has been off of an epinephrine drip for the day the patient reports that he has had decreased oral intake Related Data Home Medications ?Medication ?Instructions ?Recorded ?Confirmed ?Last Taken ?Type lancets 26 gauge (TRUEplus Lancets) #100 ea 12/25/19 04/16/25 Unknown History pen needle, diabetic 31 gauge x #1,200 ea 12/25/19 04/16/25 Unknown History 01/05 (BD Ultra-Fine Short Pen Needle) propranolol 20 mg tablet 20 mg PO Q12H 12/25/19 04/16/25 Unknown History Held on 04/21/25. Instructions: Resume on 05/09/25. hold until instructed otherwise per neurology donepezil 5 mg tablet (Aricept) 5 mg PO QHS 09/21/24 04/16/25 Unknown History omega-3 fatty acids 1,000 mg 1,000 mg PO DAILY 09/21/24 04/16/25 Unknown History capsule sertraline 100 mg tablet 200 mg PO QPM 09/21/24 04/16/25 Unknown History insulin glargine 100 unit/mL (3 20 unit subcut QPM 04/16/25 04/16/25 Unknown History mL) subcutaneous pen (Basaglar KwikPen U-100 Insulin) Allergies Allergy/AdvReac Type Severity Reaction Status Date / Time amoxicillin Allergy Unknown throat Verified 07/09/25 21:20 swelling Penicillins Allergy Unknown throat Verified 07/09/25 21:20 swelling Review of Systems Review of Systems: A 10 system review of systems was completed on the patient and is negative except for what is stated in the HPI. Nursing and ancillary documentation was reviewed. [facility] Past Medical History Medical History Dyslipidemia Type 2 diabetes mellitus with peripheral neuropathy Benign essential tremor Acquired hypothyroidism Left carpal tunnel syndrome Major depressive disorder, recurrent episode Type 2 diabetes mellitus with hyperglycemia, with long-term current use of insulin Memory loss COPD (chronic obstructive pulmonary disease) Anxiety Benign positional vertigo Surgical History Surgical History History of right knee surgery History of surgery on right wrist History of hernia repair Family History Family History Father Family history of diabetes mellitus in first degree relative Alcoholism in family member Mother Diabetes mellitus Grandparent Diabetes mellitus Alcoholism in family member Social History Social History Social History: Caffeine Cola 4 bottles a day Smoking status: Former smoker Tobacco type: cigarettes Alcohol intake: never Substance use: never Substance use type: marijuana Do You Feel Safe in your Home?: Yes Lack of Transportation: No Lack of Food: Never True Current Housing: I Have Housing Concerned About Future Housing: No Difficulty Paying Gas/Electric Bills: YES Difficulty Paying for Meds: No Currently Unemployed: No Education: High School Diploma/GED Difficulty w/ Childcare or Family Care: No Living arrangements: with family Occupation/Education: retired Gender identity (if verbalized by the patient): Male Sexual Orientation (if Verbalized by the Patient): Straight or Heterosexual Spiritual care concerns: No Exam Narrative: GENERAL: Well-appearing, well-nourished, and in no acute distress. HEAD: Normocephalic, atraumatic. EYES: PERRLA and EOMI. ENT: Nares clear, no rhinorrhea or epistaxis. Mucous membranes moist. NECK: Supple. dressing in place in the right side of the neck CHEST: Clear to auscultation. No respiratory distress. HEART: Regular rate and rhythm. No murmur heard. Normal peripheral pulses. ABDOMEN: Soft, nontender, nondistended, normal active bowel sounds. EXTREMITIES: Normal range of motion. No edema. SKIN: Warm, dry, no rash. NEURO: No focal deficits. Alert and oriented x3. PSYCH: Normal mood and affect. Course Vital Signs Vital signs: Vital Signs Temperature 36.4 C L 07/09/25 21:20 Pulse Rate 76 07/09/25 21:20 Respiratory Rate 20 07/09/25 21:20 Blood Pressure 113/64 07/09/25 21:20 Pulse Oximetry 100 07/09/25 21:20 Oxygen Delivery Room Air 07/09/25 21:20 Temperature 36.4 C L 07/09/25 21:20 Pulse Rate 95 07/10/25 01:53 Respiratory Rate 20 07/09/25 21:20 Blood Pressure 95/74 L 07/10/25 01:53 Pulse Oximetry 100 07/09/25 21:20 Oxygen Delivery Room Air 07/09/25 21:20 Medical Decision Making MDM Narrative Medical decision making narrative: differential diagnosis includes electrolyte abnormality, UTI, sepsis, laboratory studies were obtained the patient showed a white count 9.1 hemoglobin was 12.3 electrolytes showed a BUN of 10 and a creatinine is 0.9 blood sugar was 83 liver enzymes showed a bilirubin of 1.5 lipase was 374 urinalysis showed 2+ ketones trace leukocyte esterase 0-5 white blood cells no bacteria and negative nitrate CT scan was obtained of the abdomen pelvis CT scan showed some thickening of the urinary bladder no inflammatory changes present there was thickening of the transverse colon that could be related to under distension patient is feeling better in the emergency department the patient be discharged home to follow-up with his primary care provider Vital Signs Vital Signs: Vital Signs Temperature 36.4 C L 07/09/25 21:20 Pulse Rate 76 07/09/25 21:20 Respiratory Rate 20 07/09/25 21:20 Blood Pressure 113/64 07/09/25 21:20 Pulse Oximetry 100 07/09/25 21:20 Oxygen Delivery Room Air 07/09/25 21:20 Temperature 36.4 C L 07/09/25 21:20 Pulse Rate 95 07/10/25 01:53 Respiratory Rate 20 07/09/25 21:20 Blood Pressure 95/74 L 07/10/25 01:53 Pulse Oximetry 100 07/09/25 21:20 Oxygen Delivery Room Air 07/09/25 21:20 Lab Data 07/09/25 23:33 07/09/25 23:33 Labs: Lab Results 07/09/25 07/09/25 07/09/25 Range/Units 21:19 22:52 23:33 WBC 9.1 (4.5-10.0) K/mm3 RBC 4.08 L (4.6-6.20) M/mm3 Hgb 12.3 L (14.0-18.0) g/dL Hct 36.8 L (42.0-52.0) % MCV 90.2 (80-100) fl MCH 30.1 (26-34) pg MCHC 33.4 (32-36) g/dl RDW 12.9 (11.5-14.5) % Plt Count 161 (150-375) k/mm3 MPV 9.8 (7.4-10.4) fl Immature Gran % (Auto) 0.3 (0-0.5) % Neut % (Auto) 77.5 H (45.5-73.1) % Lymph % (Auto) 15.9 L (18.3-44.2) % [place] % (Auto) 5.6 (2.6-8.5) % Eos % (Auto) 0.5 (0-4.4) % Baso % (Auto) 0.2 (0.2-1.2) % Lymph # (Auto) 1.45 (0.9-3.2) K/mm3 [place] # (Auto) 0.5 (0.1-0.6) K/mm3 Eos # (Auto) 0.1 (0-0.3) K/mm3 Baso # (Auto) 0.0 (0.0-0.1) K/mm3 Abs Immat Gran (auto) 0.03 (0.00-0.031) K/mm3 Absolute Neuts (auto) 7.1 H (1.3-6.7) K/mm3 Absolute Nucleated RBC 0.000 (0.0-0.012) K/mm3 Nucleated RBC % 0.0 (0.0-0.2) % Sodium 138 (137-145) mmol/L Potassium 3.5 (3.4-5.0) mmol/L Chloride 106 (98-107) mmol/L Carbon Dioxide 18 L (22-30) mmol/L Anion Gap 14 H (4-12) mmol/L BUN 10 D (9-20) mg/dL Creatinine 0.99 (0.7-1.3) mg/dL Estim Creat Clear Calc 58 ml/min Estimated GFR > 60 (59 - ) Glucose 83 (65-110) mg/dL POC Capillary Glucose 84 (65-105) mg/dl Calcium 8.5 (8.4-10.2) mg/dL Total Bilirubin 1.5 H (0.2-1.3) mg/dL AST 42 (17-59) U/L ALT 31 (6-50) U/L Alkaline Phosphatase 67 (38-126) U/L Total Protein 6.6 (6.3-8.2) g/dL Albumin 3.8 (3.5-5.1) g/dL Lipase 374 H (23-300) U/L Urine Color Yellow (Yellow) Urine Appearance Clear (Clear) Urine pH 7.0 (5.0-9.0) Ur Specific [place] 1.013 (1.001-1.035) Urine Protein Negative (Negative) mg/dL Urine Glucose (UA) Negative (Negative) mg/dL Urine Ketones 2+ H (Negative) mg/dL Ur Blood (Man) 3+ H (Negative) Urine Nitrate Negative (Negative) Urine Bilirubin Negative (Negative) Urine Urobilinogen 1.0 (<2.0) mg/dL Leukocyte Esterase Rfl Trace H (Negative) MARCUS/UL Urine RBC 11-20 H (0-2) /hpf Urine WBC 0-5 (0-3) /hpf Ur Squamous Epith Cells None seen (Few) /hpf Urine Bacteria None seen /hpf Urine Casts 0-2 Influenza A (RT-PCR) Negative (Negative) Influenza B (RT-PCR) Negative (Negative) RSV (RT-PCR) Negative (Negative) SARS-CoV-2 RNA (RT-PCR) Negative (Negative) 07/10/25 Range/Units 01:55 WBC (4.5-10.0) K/mm3 RBC (4.6-6.20) M/mm3 Hgb (14.0-18.0) g/dL Hct (42.0-52.0) % MCV (80-100) fl MCH (26-34) pg MCHC (32-36) g/dl RDW (11.5-14.5) % Plt Count (150-375) k/mm3 MPV (7.4-10.4) fl Immature Gran % (Auto) (0-0.5) % Neut % (Auto) (45.5-73.1) % Lymph % (Auto) (18.3-44.2) % [place] % (Auto) (2.6-8.5) % Eos % (Auto) (0-4.4) % Baso % (Auto) (0.2-1.2) % Lymph # (Auto) (0.9-3.2) K/mm3 [place] # (Auto) (0.1-0.6) K/mm3 Eos # (Auto) (0-0.3) K/mm3 Baso # (Auto) (0.0-0.1) K/mm3 Abs Immat Gran (auto) (0.00-0.031) K/mm3 Absolute Neuts (auto) (1.3-6.7) K/mm3 Absolute Nucleated RBC (0.0-0.012) K/mm3 Nucleated RBC % (0.0-0.2) % Sodium (137-145) mmol/L Potassium (3.4-5.0) mmol/L Chloride (98-107) mmol/L Carbon Dioxide (22-30) mmol/L Anion Gap (4-12) mmol/L BUN (9-20) mg/dL Creatinine (0.7-1.3) mg/dL Estim Creat Clear Calc ml/min Estimated GFR (59 - ) Glucose (65-110) mg/dL POC Capillary Glucose 82 (65-105) mg/dl Calcium (8.4-10.2) mg/dL Total Bilirubin (0.2-1.3) mg/dL AST (17-59) U/L ALT (6-50) U/L Alkaline Phosphatase (38-126) U/L Total Protein (6.3-8.2) g/dL Albumin (3.5-5.1) g/dL Lipase (23-300) U/L Urine Color (Yellow) Urine Appearance (Clear) Urine pH (5.0-9.0) Ur Specific [place] (1.001-1.035) Urine Protein (Negative) mg/dL Urine Glucose (UA) (Negative) mg/dL Urine Ketones (Negative) mg/dL Ur Blood (Man) (Negative) Urine Nitrate (Negative) Urine Bilirubin (Negative) Urine Urobilinogen (<2.0) mg/dL Leukocyte Esterase Rfl (Negative) MARCUS/UL Urine RBC (0-2) /hpf Urine WBC (0-3) /hpf Ur Squamous Epith Cells (Few) /hpf Urine Bacteria /hpf Urine Casts Influenza A (RT-PCR) (Negative) Influenza B (RT-PCR) (Negative) RSV (RT-PCR) (Negative) SARS-CoV-2 RNA (RT-PCR) (Negative) Discharge Plan Discharge Clinical Impression: Nausea Patient Disposition: Home Condition: Stable Instructions: Antibiotic Form, Acute Nausea and Vomiting (ED) Additional Instructions: please be sure to check your blood sugars. Please follow-up with your primary care provider if her symptoms worsen please return to the emergency department for re-evaluation Patient Language: Citizen Of [place] Prescriptions: No Action (DME) pen needle, diabetic [BD Ultra-Fine Short Pen Needle] 31 gauge x 5/16 needle See Rx Instructions .ROUTE .MEDSUPPLY Qty: 1,200 Rx Instructions: As directed propranolol 20 mg tablet 20 mg PO Q12H (DME) lancets [TRUEplus Lancets] 26 gauge misc See Rx Instructions .ROUTE .MEDSUPPLY Qty: 100 Rx Instructions: As directed (DME) Dexcom G6 Sensor Device See Rx Instructions .Route Qty: 3 0RF Rx Instructions: As directed (DME) Dexcom G6 Email Marketing Processor Misc See Rx Instructions .Route Qty: 1 0RF Rx Instructions: As directed (DME) Dexcom G6 Transmitter Device See Rx Instructions .Route Qty: 1 0RF Rx Instructions: As directed atorvastatin 40 mg tablet 40 mg PO DAILY Qty: 90 3RF insulin glargine [Basaglar KwikPen U-100 Insulin] 100 unit/mL (3 mL) insulin pen 20 unit SUB-Q QPM hydrocodone-acetaminophen 5-325 mg Tablet 1 tablet PO Q6H PRN (Reason: Pain Rated 4-6) Qty: 30 0RF (DME) OneTouch Ultra Test Strip See Rx Instructions .Route Qty: 100 5RF Rx Instructions: Use to check bloodsugars TID (DME) BD Insulin Syringe U-500 1/2 mL 31 gauge x 15/64 syringe See Rx Instructions .ROUTE .MEDSUPPLY Qty: 200 1RF Rx Instructions: Use syringes twice daily (DME) insulin syringe-needle U-100 [BD Insulin Syringe Ultra-Fine] 0.5 mL 31 gauge x 5/16 syringe See Rx Instructions .ROUTE .MEDSUPPLY Qty: 400 1RF Rx Instructions: Use one syringe TID with insulin sertraline 100 mg tablet 200 mg PO QPM donepezil [Aricept] 5 mg tablet 5 mg PO QHS omega-3 fatty acids 1,000 mg capsule 1,000 mg PO DAILY gabapentin 600 mg tablet 600 mg PO TID Qty: 270 1RF levothyroxine [Synthroid] 50 mcg tablet 50 mcg PO DAILY Qty: 30 3RF Humulin R Regular U-100 Insuln 100 unit/mL solution See Rx Instructions .ROUTE .COMPLEX Qty: 10 5RF Dose Instruction: INJECT 20 UNITS SUBCUTANEOUSLY TWICE DAILY Rx Instructions: INJECT 20 UNITS SUBCUTANEOUSLY TWICE DAILY lisinopril 2.5 mg tablet See Rx Instructions .ROUTE .COMPLEX Qty: 90 1RF Dose Instruction: Take 1 tablet by mouth once daily Rx Instructions: Take 1 tablet by mouth once daily fenofibrate 160 mg tablet 160 mg PO DAILY Qty: 90 1RF metformin 500 mg tablet extended release 24 hr 1,000 mg PO BID Qty: 360 1RF (DME) insulin syringe-needle U-100 [TRUEplus Insulin] 1 mL 31 gauge x 5/16 syringe See Rx Instructions .ROUTE .COMPLEX Qty: 100 1RF Dose Instruction: USE 1 SYRINGE 4 TIMES DAILY Rx Instructions: USE 1 SYRINGE 4 TIMES DAILY Follow-up/Referrals: Nazario Almodovar DO [Primary Care Provider, Internal Medicine] Time of Disposition: 05:20
[2025-07-10 05:35] VITALS: BP 125/65; PULSE 100; RESP 28; O2SAT 100
== END 2025-07-10 05:37 | disposition home or self-care (01) ==
PROVIDERS: Emergency Provider Emergency Medicine; PCP Internal Medicine
DX: R11.0 Nausea (principal); Z20.822 Contact with and (suspected) exposure to COVID-19; J44.9 Chronic obstructive pulmonary disease, unspecified; E78.5 Hyperlipidemia, unspecified; E11.42 Type 2 diabetes mellitus with diabetic polyneuropathy; E03.9 Hypothyroidism, unspecified; F41.9 Anxiety disorder, unspecified; F33.9 Major depressive disorder, recurrent, unspecified; Z87.891 Personal history of nicotine dependence; Z79.4 Long term (current) use of insulin; Z79.899 Other long term (current) drug therapy; Z79.84 Long term (current) use of oral hypoglycemic drugs
CPT/HCPCS: 36415; 74177; 80053; 81001; 82948; 83690; 85025; 87637; 96361; 96374; 99284; J0780; J7030; Q9967